=== PATIENT | female | born 1940 | race Caucasian/White ===

== ENCOUNTER → 2016-10-25 | Outpatient (REF) | payer MEDICARE, MEDICAID ==
[~2016-10-25] MED LIST: /LORA10TA PO; /MOXI40TA PO; /WARF25TA PO; /WARF5TA PO; ACET50TA PO; ALBU17IN INH; ASPI81TA7 PO; BACITAB PO; BENA20TA2 PO; BISO5TAB5 PO; CITA20TA2 PO; DEPA250T2 PO; DOXY-197 PO; HYDR12.56 PO; LOTR52CA PO; OMEP20CA3 PO; SIMV20TA2 PO; SING5CHW PO; VITA200016 PO
[2016-10-25 15:35] LABS: BASO # 0.1 K/mm3 (0.0-0.2); BASO % 0.8 % (0.0-1.0); EOS % 0.5 % (0.0-3.0); LARGE UNSTAINED CELL # 0.2 K/mm3 (0.0-0.4); LARGE UNSTAINED CELL % 2.8 % (0.0-4.0); LYMPH # 1.4 K/mm3 (1.5-4.5); MEAN CORPUSCULAR HEMOGLOBIN 30.9 pg (27.0-33.0); MEAN CORPUSCULAR HGB CONC 33.8 g/dl (32.0-36.5); MEAN CORPUSCULAR VOLUME 91.5 fl (80.0-96.0); MONO # 0.8 K/mm3 (0.0-0.8); MONO % 9.6 % (0.0-5.0); NEUTROPHILS # 6.1 K/mm3 (1.8-7.7); NEUTROPHILS % 72.4 % (36.0-66.0); PLATELET COUNT, AUTOMATED 212 k/mm3 (150-450); RED CELL DISTRIBUTION WIDTH 13.4 % (11.5-14.5); WHITE BLOOD COUNT 8.4 K/mm3 (4.0-10.0)
[2016-10-25 16:22] LABS: ALBUMIN 3.8 GM/DL (3.2-5.2); ALKALINE PHOSPHATASE 75 U/L (45-117); ALT/SGPT 17 U/L (12-78); ANION GAP 11 MEQ/L (8-16); AST/SGOT 18 U/L (15-37); BILIRUBIN,TOTAL 0.5 MG/DL (0.2-1.0); BLOOD UREA NITROGEN 11 MG/DL (7-18); CALCIUM LEVEL 8.8 MG/DL (8.8-10.2); CARBON DIOXIDE LEVEL 29 MEQ/L (21-32); CHLORIDE LEVEL 101 MEQ/L (98-107); CREATININE FOR GFR 0.75 MG/DL (0.55-1.02); GLOMERULAR FILTRATION RATE > 60.0 (>39); GLUCOSE, FASTING 97 MG/DL (83-110); POTASSIUM SERUM 4.2 MEQ/L (3.5-5.1); SODIUM LEVEL 141 MEQ/L (136-145); TOTAL PROTEIN 7.6 GM/DL (6.4-8.2)
== END ==
LOC: M SFHCPLAZ 14:40
PROVIDERS: ATTEND Nurse Practitioner Family
DX: J06.9 Acute upper respiratory infection, unspecified (principal); R53.83 Other fatigue; R19.7 Diarrhea, unspecified
CPT/HCPCS: 36415; 80053; 85025; 87804; G0463

== ENCOUNTER → 2017-05-18 | Outpatient (REF) | payer MEDICARE, MEDICAID ==
[2017-05-18 13:26] LABS: MEAN CORPUSCULAR HEMOGLOBIN 30.8 pg (27.0-33.0); MEAN CORPUSCULAR HGB CONC 33.5 g/dl (32.0-36.5); RED CELL DISTRIBUTION WIDTH 13.4 % (11.5-14.5); WHITE BLOOD COUNT 7.7 K/mm3 (4.0-10.0)
[2017-05-18 13:58] LABS: ALBUMIN 3.7 GM/DL (3.2-5.2); ALBUMIN/GLOBULIN RATIO 1.06 (1.00-1.93); ALKALINE PHOSPHATASE 74 U/L (45-117); ALT/SGPT 21 U/L (12-78); ANION GAP 8 MEQ/L (8-16); AST/SGOT 14 U/L (15-37); BILIRUBIN,TOTAL 0.5 MG/DL (0.2-1.0); BLOOD UREA NITROGEN 17 MG/DL (7-18); CALCIUM LEVEL 9.1 MG/DL (8.8-10.2); CARBON DIOXIDE LEVEL 30 MEQ/L (21-32); CHLORIDE LEVEL 101 MEQ/L (98-107); CHOLESTEROL LEVEL 183 MG/DL (<200); CREATININE FOR GFR 0.82 MG/DL (0.55-1.02); GLOMERULAR FILTRATION RATE > 60.0 (>39); GLUCOSE, FASTING 98 MG/DL (83-110); POTASSIUM SERUM 3.9 MEQ/L (3.5-5.1); SODIUM LEVEL 139 MEQ/L (136-145); TOTAL PROTEIN 7.2 GM/DL (6.4-8.2); TRIGLYCERIDES LEVEL 286 MG/DL (<150)
== END ==
LOC: M SFHCPLAZ 08:38
PROVIDERS: ATTEND Internal Medicine
DX: Z51.81 Encounter for therapeutic drug level monitoring (principal); Z79.899 Other long term (current) drug therapy; R73.01 Impaired fasting glucose; E78.00 Pure hypercholesterolemia, unspecified; E55.9 Vitamin D deficiency, unspecified

== ENCOUNTER → 2017-07-13 | Outpatient (CLI) | payer MEDICARE, MEDICAID ==
--- NOTE | 2017-07-13 14:05 | REP ---
Clinical: Stenosis. Comparison: 02/04/2010. Technique: Song scale and color Doppler evaluation using linear high frequency transducer Findings: Two-dimensional song scale and color images demonstrate minimal noncalcified intimal thickening and atheromatous plaque with normal arterial lumen, laminar flow and no appreciable narrowing. Color Doppler interrogation demonstrates normal arterial wave patterns and velocities with no significant spectral broadening. Normal flow direction is appreciated in the bilateral vertebral arteries. RIGHT (cm/s) LEFT (cm/s) ICA peak systolic velocity 57.5 44.0 ICA diastolic velocity 16.9 14.5 ECA peak systolic velocity 109.1 73.9 CCA peak systolic velocity 72.3 98.9 ICA/CCA ratio 1.74 1.00 Impression: No hemodynamically significant areas of narrowing or stenosis appreciated. Based on set standards narrowing falls within the less than 50% range. Signed by Moisés Jimenez MD 07/13/2017 01:56 P
== END ==
LOC: M RAD 13:12
PROVIDERS: ATTEND Physician Assistant Medical
DX: I65.23 Occlusion and stenosis of bilateral carotid arteries (principal)

== ENCOUNTER → 2017-11-16 | Outpatient (REF) | payer MEDICARE, MEDICAID ==
[2017-11-16 11:55] LABS: INR 2.21; PROTHROMBIN TIME 25.3 SECONDS (12.4-14.5)
[2017-11-16 12:10] LABS: ALBUMIN 3.5 GM/DL (3.2-5.2); ALKALINE PHOSPHATASE 81 U/L (45-117); ALT/SGPT 17 U/L (12-78); ANION GAP 9 MEQ/L (8-16); AST/SGOT 10 U/L (7-37); BILIRUBIN,TOTAL 0.4 MG/DL (0.2-1.0); BLOOD UREA NITROGEN 14 MG/DL (7-18); CALCIUM LEVEL 8.6 MG/DL (8.8-10.2); CARBON DIOXIDE LEVEL 28 MEQ/L (21-32); CHLORIDE LEVEL 104 MEQ/L (98-107); CHOLESTEROL LEVEL 181 MG/DL (<200); CHOLESTEROL RISK RATIO 4.525 (<5); CREATININE FOR GFR 0.75 MG/DL (0.55-1.30); GLOMERULAR FILTRATION RATE > 60.0 (>39); GLUCOSE, FASTING 96 MG/DL (70-100); HDL CHOLESTEROL 40 MG/DL (>40); LDL CHOLESTEROL 83.6 MG/DL (<100); NON-HDL-C 141 MG/DL; POTASSIUM SERUM 4.1 MEQ/L (3.5-5.1); SODIUM LEVEL 141 MEQ/L (136-145); TRIGLYCERIDES LEVEL 287 MG/DL (<150)
== END ==
LOC: M SFHCPLAZ 09:34
DX: Z51.81 Encounter for therapeutic drug level monitoring (principal); Z79.899 Other long term (current) drug therapy; I10 Essential (primary) hypertension; E78.00 Pure hypercholesterolemia, unspecified; I48.91 Unspecified atrial fibrillation
CPT/HCPCS: 83735

== ENCOUNTER → 2018-05-24 | Outpatient (REF) | payer MEDICARE, MEDICAID ==
[2018-05-24 12:14] LABS: HEMATOCRIT 43.2 % (36.0-47.0); MEAN CORPUSCULAR HEMOGLOBIN 30.3 pg (27.0-33.0); MEAN CORPUSCULAR HGB CONC 32.4 g/dl (32.0-36.5); MEAN CORPUSCULAR VOLUME 93.5 fl (80.0-96.0); PLATELET COUNT, AUTOMATED 252 10^3/uL (150-450); RED BLOOD COUNT 4.62 10^6/uL (4.00-5.40); RED CELL DISTRIBUTION WIDTH 13.9 % (11.5-14.5); WHITE BLOOD COUNT 9.7 10^3/uL (4.0-10.0)
[2018-05-24 15:16] LABS: ESTIMATED AVERAGE GLUCOSE 131 MG/DL (60-110); HEMOGLOBIN A1c 6.2 %
[2018-05-24 17:42] LABS: ANION GAP 12 MEQ/L (8-16); AST/SGOT 14 U/L (7-37); BLOOD UREA NITROGEN 18 MG/DL (7-18); CARBON DIOXIDE LEVEL 28 MEQ/L (21-32); CHLORIDE LEVEL 101 MEQ/L (98-107); CREATININE FOR GFR 0.84 MG/DL (0.55-1.30); GLOMERULAR FILTRATION RATE > 60.0 (>39); GLUCOSE, FASTING 141 MG/DL (70-100); POTASSIUM SERUM 4.1 MEQ/L (3.5-5.1); SODIUM LEVEL 141 MEQ/L (136-145)
[2018-05-24 17:43] LABS: ALBUMIN 3.7 GM/DL (3.2-5.2); ALBUMIN/GLOBULIN RATIO 1.03 (1.00-1.93); ALKALINE PHOSPHATASE 67 U/L (45-117); ALT/SGPT 21 U/L (12-78); BILIRUBIN,TOTAL 0.5 MG/DL (0.2-1.0); CHOLESTEROL LEVEL 186 MG/DL (<200); CHOLESTEROL RISK RATIO 4.043 (<5); HDL CHOLESTEROL 46 MG/DL (>40); LDL CHOLESTEROL 87 MG/DL (<100); MAGNESIUM LEVEL 1.9 MG/DL (1.8-2.4); NON-HDL-C 140 MG/DL; TOTAL PROTEIN 7.3 GM/DL (6.4-8.2); TRIGLYCERIDES LEVEL 266 MG/DL (<150)
== END ==
LOC: M SFHCPLAZ 10:18
DX: J45.909 Unspecified asthma, uncomplicated (principal); I10 Essential (primary) hypertension; R73.01 Impaired fasting glucose; E78.00 Pure hypercholesterolemia, unspecified
CPT/HCPCS: 83735

== ENCOUNTER 2018-09-17 | Emergency (ER) | payer MEDICARE, MEDICAID ==
[~2018-09-17] VITALS: Ht 157.5 cm; Wt 89.5 kg
[2018-09-17 00:39] LABS: BASO # 0.1 10^3/uL (0.0-0.2); BASO % 0.5 % (0.0-1.0); EOS # 0.3 10^3/uL (0.0-0.50); EOS % 1.9 % (0.0-3.0); HEMATOCRIT 40.7 % (36.0-47.0); HEMOGLOBIN 13.4 g/dl (12.0-15.5); LYMPH % 23.2 % (24.0-44.0); MEAN CORPUSCULAR HEMOGLOBIN 30.3 pg (27.0-33.0); MEAN CORPUSCULAR HGB CONC 32.9 g/dl (32.0-36.5); MEAN CORPUSCULAR VOLUME 92.1 fl (80.0-96.0); MONO # 1.3 10^3/uL (0.0-0.8); NEUTROPHILS # 8.2 10^3/uL (1.8-7.7); NEUTROPHILS % 63.8 % (36.0-66.0); PLATELET COUNT, AUTOMATED 240 10^3/uL (150-450); RED BLOOD COUNT 4.42 10^6/uL (4.00-5.40); WHITE BLOOD COUNT 12.9 10^3/uL (4.0-10.0)
[2018-09-17 00:56] LABS: INR 2.02; PROTHROMBIN TIME 23.3 SECONDS (12.1-14.4)
[2018-09-17 00:57] LABS: PARTIAL THROMBOPLASTIN TIME 36.7 SECONDS (25.4-37.6)
[2018-09-17 01:07] LABS: CALCIUM LEVEL 8.9 MG/DL (8.8-10.2); CREATININE FOR GFR 0.97 MG/DL (0.55-1.30); GLOMERULAR FILTRATION RATE 59.1 (>39); POTASSIUM SERUM 4.3 MEQ/L (3.5-5.1)
[2018-09-17] MEDS ORDERED: NS 500 ML IV ONE (01:15)
--- NOTE | 2018-09-17 01:17 | REPVR ---
EXAM: CT Head Without Contrast EXAM DATE/TIME: 09/17/18 (12:51am) CLINICAL HISTORY: 78 years old female. Syncope and collapse. TECHNIQUE: Axial computed tomography images of the head without contrast. All CT scans at this facility use at least one of these dose optimization techniques: automated exposure control; mA and/or kV adjustment per patient size (includes targeted exams where dose is matched to clinical indication); or iterative reconstruction. COMPARISON: MRA BRAIN of 12/27/13 FINDINGS: Brain: No acute hemorrhage. No cerebral edema. Some atrophic changes. Ventricles: Normal. No ventriculomegaly. Bones/joints: Normal. No acute fracture. Sinuses: Normal as visualized. No acute sinusitis. Mastoid air cells: Normal as visualized. No mastoid effusion. Soft tissues: Normal. IMPRESSION: No acute intracranial pathology is appreciated. Electronically signed by: Rachael Wilson On 09/17/2018 01:17:16 AM
[2018-09-17] MEDS ORDERED: ACETAMINOPH W/CODEINE #3 TAB UD PO ONE (01:30)
[2018-09-17 02:00] VITALS: BP 162/72
[2018-09-17] MEDS ORDERED: ACETAMINOPHEN 325 MG TAB PO ONE (02:15)
--- NOTE | 2018-09-17 09:27 | ECGEPIP ---
Stationary ECG Study [facility] - ED Test Date: 2018-09-17 Pat Name: SOLA GOODMAN Department: Room: - Gender: F Computer Operations Analyst: FELIPA : 1940 Requested By: RICKY MARVIN Order Number: [id number] Reading MD: Harpreet Thomas Measurements Intervals [place] Rate: 84 P: [place]: 0 QRS: 34 QRSD: 89 T: 81 QT: 384 QTc: 455 Interpretive Statements ATRIAL FIBRILLATION NONSPECIFIC ST & T-WAVE ABNORMALITY LOW QRS VOLTAGE LIMB LEADS ABNORMAL RHYTHM ECG PROLONGED QTC CW 07/21/[address] T WAVE CHANGES Electronically Signed On 09-17-2018 9:27:36 EST by Harpreet Thomas
--- NOTE | 2018-09-17 10:35 | REP ---
RIGHT SHOULDER ONE VIEW: 09/17/2018. Comparison: 03/13/2014. Clinical history: Trauma. Findings: Single view provided. There is no gross evidence of fracture or dislocation. No humeral subluxation suggested on this single view. AC joint arthritis with narrowing of the joint space and inferior spurring from the clavicle more than acromion. No clavicular, scapular, humeral rib fracture evident. Some mild osteoarthritic change of the glenohumeral joint as well. Impression: 1. No visible fracture or dislocation of the shoulder. 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 Limited single view exam. Electronically Signed by Jose Enrique Lorenzo MD 09/17/2018 02:23 P
--- NOTE | 2018-09-17 10:41 | REP ---
AP LATERAL RIGHT KNEE: 09/17/2018: Clinical history: Trauma. Findings: No prior study. Two-view show spurs in the tibial spines, medial lateral joint line and patella representing mild tricompartment osteoarthritis. There is no suprapatellar effusion on the lateral view. No visible fracture, loose body or osteochondral defect. No joint space narrowing. There is prepatellar soft tissue swelling at above and below the patella on the lateral view. No abnormal soft-tissue calcification, avulsion or foreign body. Electronically Signed by Jose Enrique Lorenzo MD 09/17/2018 02:23 P
--- NOTE | 2018-09-17 10:43 | REP ---
LEFT FOOT COMPLETE: 09/17/2018: Clinical history: Trauma. Findings: No prior study. Four views are provided. They show plantar and Achilles insertional spurs of moderate size. Subtalar joints are intact. Talus and calcaneus show no fractures or focal lesion and their articulations with the tarsal bones are unremarkable. The tarsal bones show no fracture or focal lesion. TMT joints were intact. No fracture or focal lesion in the metatarsals. Phalanges as visualized are without fracture. There is narrowing and/or spur formation at all IP joints. First MTP joint with some osteoarthritic change. There is arterial calcification noted in the midfoot. Soft tissue swelling over the hind foot and anterolateral to the ankle. Impression: 1. Some degenerative changes of the foot at multiple joints. Heel spurs also noted. No visible or displaced fracture. Electronically Signed by Jose Enrique Lorenzo MD 09/17/2018 02:23 P
== END 2018-09-17 02:20 | disposition home or self-care (01) ==
LOC: M ED
DX: E86.0 Dehydration (principal); T14.8XXA Other injury of unspecified body region, initial encounter; W18.39XA Other fall on same level, initial encounter; Y92.010 Kitchen of single-family (private) house as the place of occurrence of the external cause; I10 Essential (primary) hypertension; J45.909 Unspecified asthma, uncomplicated; I48.91 Unspecified atrial fibrillation; K21.9 Gastro-esophageal reflux disease without esophagitis; F41.9 Anxiety disorder, unspecified; E78.5 Hyperlipidemia, unspecified; Z79.899 Other long term (current) drug therapy; Z79.82 Long term (current) use of aspirin; Z79.01 Long term (current) use of anticoagulants; Z88.0 Allergy status to penicillin; Z88.1 Allergy status to other antibiotic agents

== ENCOUNTER 2018-11-20 11:15 | Inpatient (IN) | payer MEDICARE, MEDICAID ==
[~2018-11-20] VITALS: Ht 157.5 cm; Wt 89.7 kg
[2018-11-20] MEDS ORDERED: METOCLOPRAMIDE INJ 10MG/2ML VIAL (J2765) IV ONE (12:45)
[2018-11-20] MEDS ORDERED: NS 1,000 ML IV ONE (12:45)
[2018-11-20 12:57] LABS: BASO % 0.4 % (0.0-1.0); EOS # 0.2 10^3/uL (0.0-0.50); EOS % 2.7 % (0.0-3.0); HEMOGLOBIN 13.3 g/dl (12.0-15.5); LYMPH # 1.5 10^3/uL (1.5-4.5); LYMPH % 19.7 % (24.0-44.0); MEAN CORPUSCULAR HEMOGLOBIN 29.8 pg (27.0-33.0); MEAN CORPUSCULAR HGB CONC 32.4 g/dl (32.0-36.5); MEAN CORPUSCULAR VOLUME 91.7 fl (80.0-96.0); MONO # 0.8 10^3/uL (0.0-0.8); MONO % 11.1 % (0.0-5.0); NEUTROPHILS # 4.9 10^3/uL (1.8-7.7); NEUTROPHILS % 65.6 % (36.0-66.0); PLATELET COUNT, AUTOMATED 254 10^3/uL (150-450); RED BLOOD COUNT 4.47 10^6/uL (4.00-5.40); WHITE BLOOD COUNT 7.5 10^3/uL (4.0-10.0)
[2018-11-20 13:06] LABS: INR 2.56
[2018-11-20 13:27] LABS: BLOOD UREA NITROGEN 12 MG/DL (7-18); CALCIUM LEVEL 8.3 MG/DL (8.8-10.2); CARBON DIOXIDE LEVEL 25 MEQ/L (21-32); CHLORIDE LEVEL 103 MEQ/L (98-107); CK-MB VALUE MASS < 1.0 NG/ML (<3.6); CPK CREATINE PHOSPHOKINASE 89 U/L (26-192); CREATININE FOR GFR 0.92 MG/DL (0.55-1.30); GLOMERULAR FILTRATION RATE > 60.0 (>39); GLUCOSE, FASTING 152 MG/DL (70-100); MAGNESIUM LEVEL 1.8 MG/DL (1.8-2.4); MB/CK RELATIVE INDEX 1.12 (< OR =4); POTASSIUM SERUM 3.8 MEQ/L (3.5-5.1); SODIUM LEVEL 138 MEQ/L (136-145); TROPONIN I < 0.02 NG/ML (< 0.10)
--- NOTE | 2018-11-20 13:41 | REP ---
CT Head without contrast HISTORY: Syncope COMPARISON: 09/17/2018 There is no intraparenchymal hemorrhage, acute infarct, mass or midline shift. The ventricular system and cortical sulci as well as subarachnoid space in the posterior fossa are dilated consistent with minimal volume loss. There is no extra cerebral collection. There is no fracture. The visualized sinuses are clear. IMPRESSION: Minimal volume loss. Electronically Signed by Estiven Rajan MD 11/20/2018 01:32 P
--- NOTE | 2018-11-20 14:03 | REP ---
PORTABLE CHEST X-RAY: Single view. HISTORY: Syncope/near syncope. COMPARISON CHEST X-RAY: July 21, 2013. FINDINGS: There is moderate cardiomegaly again noted. EKG electrodes are seen. Pulmonary vasculature is not increased. No infiltrate is seen. The aortic knob is somewhat calcific as before. IMPRESSION: Moderate cardiac enlargement. Otherwise no acute disease. Electronically Signed by Jefe Ocampo MD 11/20/2018 02:29 P
[2018-11-20] MEDS ORDERED: OMEP20CA3 PO (15:04)
[2018-11-20] MEDS ORDERED: WARF-23 PO (15:04)
[2018-11-20] MEDS ORDERED: ACET1TAB55 PO (15:04)
[2018-11-20] MEDS ORDERED: DIVA250T7 PO (15:04)
[2018-11-20] MEDS ORDERED: CITA-230 PO (15:04)
[2018-11-20] MEDS ORDERED: PRED20TA PO (15:04)
[2018-11-20] MEDS ORDERED: ALB2.5NEB NEB (15:04)
[2018-11-20] MEDS ORDERED: BENA20TA6 PO (15:04)
[2018-11-20] MEDS ORDERED: AMLO5CAP2 PO (15:04)
[2018-11-20] MEDS ORDERED: BISO5TAB5 PO (15:04)
[2018-11-20] MEDS ORDERED: MONT10TA2 PO (15:04)
[2018-11-20] MEDS ORDERED: ASPI1TAB PO (15:04)
[2018-11-20] MEDS ORDERED: VENTAER INH (15:04)
[2018-11-20] MEDS ORDERED: SIMV40TA2 PO (15:04)
[2018-11-20] MEDS ORDERED: LORA-243 PO (15:04)
[2018-11-20] MEDS ORDERED: FLUT22IN INH (15:04)
[2018-11-20] MEDS ORDERED: ONDANSETRON 4 MG TAB (S0181) PO PRN (15:30)
[2018-11-20] MEDS ORDERED: BENAZEPRIL 20 MG TAB PO ONE (15:45)
[2018-11-20] MEDS ORDERED: amLODIPine 5 MG TAB PO ONE (15:45)
[2018-11-20] MEDS ORDERED: hydroCHLOROthiazide 12.5 MG CAPSULE PO ONE (15:45)
[2018-11-20] MEDS ORDERED: WARFARIN SOD 5 MG TAB PO SCH (17:00)
--- NOTE | 2018-11-20 19:02 | HPEPDOC ---
[facility] Medical History & Physical Date of Admission Nov 20, 2018 Primary Care Physician: Nahun Ken Attending Physician: VEENA MARIN MD History and Physical CHIEF COMPLAINT: Syncopal episode HISTORY OF PRESENT ILLNESS: Swathi Johnson is a 78 year old white female, history significant for rate-controlled a-fib on Coumadin, hypercholesterolemia, HTN, and migraine who presents to the emergency department for a brief syncopal episode that occurred this morning while the patient was seated in a chair. She was having breakfast with her daughter when she suddenly noticed she was not feeling well. She recalls slumping in her chair momentarily. She denies aura or post-episode confusion. Per patient, she had been ill this past weekend with numerous bouts of diarrhea and abdominal cramping. Patient reported improvement in her symptoms yesterday. Last evening, she reports having a headache, which continued this morning and improved upon presentation to the ED. In the ED, patient was given a liter of NS and metoclopramide for nausea. Head CT and CXR was negative. CBC negative, CMP negative. Troponin negative, TSH negative. A similar episode occurred in 09/16. Patient reported to the ED with a chief complaint of syncope and fall. She received a full work-up including EKG and Head CT and was subsequently discharged without issue. Hospitalist team was called to admit the patient for further observation and workup. PAST MEDICAL HISTORY: 1. Atrial fibrillation 2. Asthma 3. Anxiety 4 hypercholesterolemia 5. Osteopenia 6. Migraine 7. Hypertension 8. Esophageal reflux 9. Vitamin D deficiency PAST SURGICAL HISTORY: 1. Total abdominal hysterectomy with oophorectomy, 1983 2. Benign tumor removal from right neck, 1984 3. Right carpal tunnel release, 1989 4. Skin lesion removed from right fourth finger, 1991 SOCIAL HISTORY: Marital status: in 2007 Resides in: Alone in senior community Employment: retired, Tobacco use:Life-long, non-smoker ETOH: Reports occasional ETOH use, once monthly Illicit drug use: Denies Other relevant social factors: Uses corrective lenses FAMILY HISTORY: Father: , myocardial infarction Mother: , renal failure 2/2 unknown Siblings: HTN, PE, PVD, Lung CA, Diabetes, ETOH abuse ALLERGIES: Please see below. REVIEW OF SYSTEMS: CONSTITUTIONAL: Denies fevers, chills, night sweats, changes in weight HEENT: Reports headache last evening and this morning, top of head, aching, resolving since in hospital, denies tongue bites CARDIOVASCULAR: Denies chest pain/tightness or palpitations, no diaphoresis RESPIRATORY: Reports history of asthma exacerbation 2 weeks ago, s/p 5 days prednisone, Denies cough, or wheezing GASTROINTESTINAL: Reports 1 week history of loose watery stools with associated abdominal cramping and some nausea that improved, no constipation GENITOURINARY: Denies urinary frequency, hesitancy, urgency, dysuria SKIN: Denies new or evolving lesions MUSCULOSKELETAL: Denies muscle weakness, joint pain NEUROLOGICAL: Reports long-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 PHYSICAL EXAMINATION: VITAL SIGNS: Temperature 97.7, pulse 89, respiratory rate 20, blood pressure 155/72 (99), pulse oximetry 95% on room air. GENERAL APPEARANCE: Alert and oriented x3, NAD, able to participate in her care. HEENT: Normocephalic, atraumatic, no sinus tenderness, no JVD, trachea midline CARDIOVASCULAR: irregularly, irregular, no murmurs noted LUNGS: Clear to auscultation bilaterally, no wheezes, rales and rhonchi ABDOMEN: obese, soft, nontender, bowel sounds throughout MUSCULOSKELETAL: No muscle weakness EXTREMITIES: No lower extremity swelling, no calf tenderness NEUROLOGICAL: Alert and oriented, no confusion LABORATORY DATA: See below. IMAGING: Head CT (11/14): Minimal volume loss. Chest XR (11/14): Moderate cardiac enlargement. Otherwise no acute disease MICROBIOLOGY: Please see below. ASSESSMENT: Swathi is a 78 year old female who presents to the emergency department following a single, episode of syncope in which the patient is unsure if she lost consciousness. No aura or post-ictal state. PLAN: Syncopal Episode - History of diarrhea suggestive of volume depletion, not supported by stable vitals and normal orthostatics. - Cardiogenic causes considered; EKG demonstrating atrial fibrillation - rate controlled. Troponin negative, Echo ordered to r/o ischemic/valvular disease, observation with telemetry overnight - Infectious causes considered; CXR did not demonstrate acute process, no leukocytosis, urine negative, afebrile, vitals stable - Vasovagal causes considered; HPI has patient seated quietly in a chair eating breakfast, uncharacteristic of vasovagal events. - Metabolic causes considered; no electrolyte abnormality on CMP, TSH normal, renal function normal, patient is not diabetic, blood sugar WNL. - TIA considered; no weakness or focal neurologic deficits, no slurring of speech. - Medication causes considered; No new medications or medication changes. - Plan to observe overnight on tele Hypercholesterolemia - c/w home Simvastatin Atrial Fibrillation - Amlodipine for rate control - Coumadin 5 mg daily for anticoagulation, INR therapeutic at 2.56 Hypertension - Benazepril 40 mg and HCTZ 12.5 mg daily Esophageal Reflux - c/w home omeprazole Migraine - c/w home Divalproex ER Depression/Anxiety - c/w home Celexa 20 mg DVT Prophylaxis: - Chronically anticoagulated with Coumadin - Sequentials Vital Signs Vital Signs Date Time Temp Pulse Resp B/P (MAP) Pulse Ox O2 Delivery O2 Flow Rate FiO2 11/20/18 17:30 83 20 143/76 (98) 93 11/20/18 11:31 97.7 Laboratory Data Labs 24H Laboratory Tests 2 11/20/18 11:38: Immature Granulocyte % (Auto) 0.5, White Blood Count 7.5, Red Blood Count 4.47, Hemoglobin 13.3, Hematocrit 41.0, Mean Corpuscular Volume 91.7, Mean Corpuscular Hemoglobin 29.8, Mean Corpuscular Hemoglobin Concent 32.4, Red Cell Distribution Width 13.5, Platelet Count 254, Neutrophils (%) (Auto) 65.6, Lymphocytes (%) (Auto) 19.7L, Monocytes (%) (Auto) 11.1H, Eosinophils (%) (Auto) 2.7, Basophils (%) (Auto) 0.4, Neutrophils # (Auto) 4.9, Lymphocytes # (Auto) 1.5, Monocytes # (Auto) 0.8, Eosinophils # (Auto) 0.2, Basophils # (Auto) 0.0, Nucleated Red Blood Cells % (auto) 0.0, Prothrombin Time 28.0H, Prothromb Time International Ratio 2.56, Anion Gap 10, Glomerular Filtration Rate > 60.0, Blood Urea Nitrogen 12, Creatinine 0.92, Sodium Level 138, Potassium Level 3.8, Chloride Level 103, Carbon Dioxide Level 25, Calcium Level 8.3L, Total Creatine Kinase 89, Magnesium Level 1.8, Creatine Kinase MB < 1.0, Creatine Kinase MB Relative Index 1.12, Troponin I < 0.02, Thyroid Stimulating Hormone (TSH) 1.680 11/20/18 16:43: Urine Color YELLOW, Urine Appearance HAZY, Urine pH 5.0, Urine Specific [place] 1.013, Urine Protein NEGATIVE, Urine Glucose (UA) NEGATIVE, Urine Ketones NEGATIVE, Urine Blood NEGATIVE, Urine Nitrite NEGATIVE, Urine Bilirubin NEGATIVE, Urine Urobilinogen 0.2, Urine Leukocyte Esterase NEGATIVE, Urine WBC (Auto) 2, Urine RBC (Auto) 1, Urine Hyaline Casts (Auto) 0, Urine Bacteria (Auto) NEGATIVE, Urine Squamous Epithelial Cells 3, Urine Mucus (Auto) SMALL, Urine Sperm (Auto) CBC/BMP Laboratory Tests 11/20/18 11:38 Red Blood Count 4.47, Mean Corpuscular Volume 91.7, Mean Corpuscular Hemoglobin 29.8, Mean Corpuscular Hemoglobin Concent 32.4, Red Cell Distribution Width 13.5, Neutrophils (%) (Auto) 65.6, Lymphocytes (%) (Auto) 19.7 L, Monocytes (%) (Auto) 11.1 H, Eosinophils (%) (Auto) 2.7, Basophils (%) (Auto) 0.4, Neutrophils # (Auto) 4.9, Lymphocytes # (Auto) 1.5, Monocytes # (Auto) 0.8, Eosinophils # (Auto) 0.2, Basophils # (Auto) 0.0, Calcium Level 8.3 L, Total Creatine Kinase 89 Home Medications Scheduled (Benazepril HCl/Hydrochlor 20-12.5 mg) 1 Tab Tab, 1 TAB PO DAILY (Amlodipine Besylate/Benaz 5-20 mg) 1 Cap Cap, 1 CAP PO QHS Aspirin (Aspirin 81) 81 Mg Tab, 81 MG PO DAILY Bisoprolol Fumarate (Bisoprolol Fumarate) 5 Mg Tab, 7.5 MG PO QHS Citalopram Hydrobromide (Citalopram) 20 Mg Tab, 20 MG PO QHS Divalproex Sodium (Divalproex Sodium ER) 250 Mg Tab, 250 MG PO QHS Fluticasone Propionate (Flovent Hfa) 220 Mcg/Act Aer, 1 PUFF INH BID Loratadine (Loratadine) 10 Mg Tab, 10 MG PO DAILY Montelukast Sodium (Montelukast Sodium) 10 Mg Tab, 10 MG PO DAILY Omeprazole (Omeprazole) 20 Mg Cap, 20 MG PO DAILY Simvastatin - High Dose (Simvastatin) 40 Mg Tab, 40 MG PO QHS Warfarin Sod (Warfarin Sodium) 5 Mg Tab, 5 MG PO QPM Scheduled PRN Acetaminophen (Acetaminophen) 325 Mg Tab, 650 MG PO Q4H PRN for PAIN Albuterol Sulfate (Albuterol Sulfate) 2.5 Mg/0.5 Ml Neb, 1 VIAL NEB Q6H PRN for SHORTNESS OF BREATH Albuterol Sulfate (Ventolin Hfa) 108 Mcg/Act Aer, 2 PUFF INH Q6H PRN for SHORTNESS OF BREATH Prednisone (Prednisone) 20 Mg Tab, 20 MG PO DAILY PRN for ASTHMA Allergies Coded Allergies: Amoxicillin (Verified Adverse Reaction, Mild, severe diarrhea, 11/20/18) Azithromycin (Verified Adverse Reaction, Mild, N/V, 11/20/18) Clindamycin (Verified Adverse Reaction, Mild, N/V, 11/20/18) GME ATTESTATION GME ATTESTATION My faculty preceptor for this patient encounter was physically present during the encounter and was fully available. All aspects of the patient interview, examination, medical decision making process, and medical care plan development were reviewed and approved by the faculty preceptor. The faculty preceptor is aware and concurs with the plan as stated in the body of this note and will attest to such by his/her cosignature. SONA SHAHID DO Nov 20, 2018 19:02
[2018-11-20 19:13] VITALS: BP 164/76
[2018-11-20] MEDS: DIVALPROEX 250MG *ER* TAB PO SCH (20:31)
[2018-11-20] MEDS: SIMVASTATIN 40 MG TAB PO SCH (20:31)
[2018-11-20] MEDS ORDERED: BISOPROLOL FUMARATE 5 MG TAB PO SCH (21:00)
--- NOTE | 2018-11-20 21:16 | ECGEPIP ---
Stationary ECG Study [facility] - ED Test Date: 2018-11-20 Pat Name: SOLA GOODMAN Department: Room: - Gender: F Round Boner: ROSENDO : 1940 Requested By: AIME AHN Order Number: [id number] Reading MD: Rita Grayson Measurements Intervals [place] Rate: 76 P: [place]: 0 QRS: 40 QRSD: 91 T: 93 QT: 402 QTc: 454 Interpretive Statements ATRIAL FIBRILLATION MINIMAL ST DEPRESSION ABNORMAL RHYTHM ECG LOW VOLTAGE LIMB SIMILAR 09/17/18 Electronically Signed On 11-20-2018 21:16:08 EDT by Rita Grayson
[2018-11-20 22:00] VITALS: BP 127/75
[2018-11-21] MEDS: FLUTICASONE HFA 220 MCG 12 GM INHALER (FLOVENT) INH SCH ×3 (00:35→21:00)
[2018-11-21 06:00] VITALS: BP 130/79
[2018-11-21 06:46] LABS: INR 2.72; PROTHROMBIN TIME 29.5 SECONDS (12.1-14.4)
[2018-11-21 08:11] LABS: HEMATOCRIT 36.6 % (36.0-47.0); HEMOGLOBIN 11.8 g/dl (12.0-15.5); MEAN CORPUSCULAR HEMOGLOBIN 29.6 pg (27.0-33.0); MEAN CORPUSCULAR HGB CONC 32.2 g/dl (32.0-36.5); MEAN CORPUSCULAR VOLUME 91.7 fl (80.0-96.0); PLATELET COUNT, AUTOMATED 224 10^3/uL (150-450); RED BLOOD COUNT 3.99 10^6/uL (4.00-5.40); WHITE BLOOD COUNT 7.9 10^3/uL (4.0-10.0)
[2018-11-21 08:34] LABS: BLOOD UREA NITROGEN 10 MG/DL (7-18); CALCIUM LEVEL 8.3 MG/DL (8.8-10.2); CARBON DIOXIDE LEVEL 29 MEQ/L (21-32); CHLORIDE LEVEL 105 MEQ/L (98-107); CREATININE FOR GFR 0.76 MG/DL (0.55-1.30); GLOMERULAR FILTRATION RATE > 60.0 (>39); GLUCOSE, FASTING 105 MG/DL (70-100); POTASSIUM SERUM 3.7 MEQ/L (3.5-5.1); SODIUM LEVEL 141 MEQ/L (136-145)
[2018-11-21] MEDS: OMEPRAZOLE 20 MG CAP PO SCH (09:23)
[2018-11-21] MEDS: LORATADINE 10 MG TAB PO SCH (09:23)
[2018-11-21] MEDS: MONTELUKAST 10 MG TAB PO SCH (09:23)
[2018-11-21] MEDS: ASPIRIN 81 MG ENTERIC TAB PO SCH (09:23)
[2018-11-21 09:39] VITALS: BP 135/69
--- NOTE | 2018-11-21 09:58 | IPNPDOC ---
Text Note Date of Service The patient was seen on 11/21/18. NOTE SUBJECTIVE: Patient was interviewed and examined in her hospital bed. She is awake, alert and in good spirits. She denies any syncopal episodes last evening. She is eager to return home. Echocardiogram to be performed today. Last evening, patient was noted to have a 2.9 second pause followed by a 5.4 second pause. Patient remained asymptomatic. Patient has been eating and drinking appropriately. She has yet to have a BM. She is able to ambulate to the bathroom to urinate without difficulty. She denies continued nausea or vomiting. No symptoms of reflux, abdominal pain or cramping. No shortness of breath, cough or difficulty breathing. She is no longer on supplemental oxygen. She denies chest pain/pressure. She denies palpitations. No headache. OBJECTIVE: VITAL SIGNS: Please see below GENERAL APPEARANCE: Alert and oriented x3, NAD, able to participate in her care. HEENT: Normocephalic, atraumatic, no JVD, trachea midline, EOMI, sclera non- icteric CARDIOVASCULAR: irregularly, irregular, no murmurs, gallops or rubs noted LUNGS: Clear to auscultation bilaterally, no wheezes, rales and rhonchi ABDOMEN: obese, soft, nontender, bowel sounds throughout MUSCULOSKELETAL: No muscle weakness, moves all extremities equally and without difficulty EXTREMITIES: No lower extremity swelling, no calf tenderness NEUROLOGICAL: Alert and oriented, no confusion, no aphasia or focal neurological deficits LABORATORY DATA: See below. IMAGING: Head CT (11/14): Minimal volume loss. Chest XR (11/14): Moderate cardiac enlargement. Otherwise no acute disease MICROBIOLOGY: Please see below. ASSESSMENT: Swathi is a 78 year old female who presents to the emergency department following a single, episode of syncope in which the patient is unsure if she lost consciousness. No aura or post-ictal state. PLAN: Syncopal Episode - History of diarrhea suggestive of volume depletion, not supported by stable vitals and normal orthostatics. - Cardiogenic causes considered; EKG demonstrating atrial fibrillation - rate controlled. Troponin negative, Echo ordered to r/o ischemic/valvular disease. Overnight telemetry demonstrated a 2.9 second followed by a 5.4 second pause. Patient's plastic straightening roll operator, Dr. Yanes was consulted. Per his recommendations, patient's Coumadin was held on the presumption that she would be requiring a pacemaker later in the week. He plans to see the patient either this evening or tomorrow morning. She remains on tele for further monitoring. - Infectious causes considered; CXR did not demonstrate acute process, no leukocytosis on repeat labs, urine negative, afebrile, vitals stable - Vasovagal causes considered; HPI has patient seated quietly in a chair eating breakfast, uncharacteristic of vasovagal events. - Metabolic causes considered; no electrolyte abnormality on CMP, TSH normal, renal function normal, patient is not diabetic, blood sugar WNL. - TIA considered; no weakness or focal neurologic deficits, no slurring of speech. - Medication causes considered; No new medications or medication changes. Hypercholesterolemia - c/w home Simvastatin Atrial Fibrillation - Amlodipine for rate control - Coumadin 5 mg daily for anticoagulation, INR therapeutic at 2.56 Hypertension Esophageal Reflux - c/w home omeprazole Migraine - c/w home Divalproex ER Depression/Anxiety DVT Prophylaxis: - Chronically anticoagulated with Coumadin - Sequentials Dispo: PT/OT VS,Fishbone, I+O VS, Fishbone, I+O Laboratory Tests 11/20/18 11:38 Red Blood Count 4.47, Mean Corpuscular Volume 91.7, Mean Corpuscular Hemoglobin 29.8, Mean Corpuscular Hemoglobin Concent 32.4, Red Cell Distribution Width 13.5, Neutrophils (%) (Auto) 65.6, Lymphocytes (%) (Auto) 19.7 L, Monocytes (%) (Auto) 11.1 H, Eosinophils (%) (Auto) 2.7, Basophils (%) (Auto) 0.4, Neutrophils # (Auto) 4.9, Lymphocytes # (Auto) 1.5, Monocytes # (Auto) 0.8, Eosinophils # (Auto) 0.2, Basophils # (Auto) 0.0, Calcium Level 8.3 L, Total Creatine Kinase 89 11/21/18 05:49 Red Blood Count 3.99 L, Mean Corpuscular Volume 91.7, Mean Corpuscular Hemoglobin 29.6, Mean Corpuscular Hemoglobin Concent 32.2, Red Cell Distribution Width 13.5, Calcium Level 8.3 L Vital Signs Date Time Temp Pulse Resp B/P (MAP) Pulse Ox O2 Delivery O2 Flow Rate FiO2 3/26/19 06:00 97.0 68 18 130/79 (96) 96 I&O- Last 24 Hours up to 6 AM 11/21/18 06:00 Intake Total 1320 ml Output Total 400 ml Balance 920 ml GME ATTESTATION GME ATTESTATION My faculty preceptor for this patient encounter was physically present during t he encounter and was fully available. All aspects of the patient interview, examination, medical decision making process, and medical care plan development were reviewed and approved by the faculty preceptor. The faculty preceptor is aware and concurs with the plan as stated in the body of this note and will attest to such by his/her cosignature. SONA SHAHID DO Nov 21, 2018 09:58
[2018-11-21 12:33] VITALS: BP_SYST 127; BP_SYST 133; BP_SYST 139; BP_DIAS 71; BP_DIAS 79; BP_DIAS 90
[2018-11-21 14:00] VITALS: BP 151/85
[2018-11-21] MEDS: SIMVASTATIN 40 MG TAB PO SCH (20:04)
[2018-11-21] MEDS: DIVALPROEX 250MG *ER* TAB PO SCH (20:04)
[2018-11-21] MEDS: BISOPROLOL FUM 2.5 MG PER 1/2TAB PO SCH (20:05)
[2018-11-21] MEDS ORDERED: BISOPROLOL FUMARATE 5 MG TAB PO SCH (21:00)
[2018-11-21 21:52] VITALS: BP_SYST 139; BP_SYST 144; BP_SYST 146; BP_DIAS 78; BP_DIAS 80; BP_DIAS 81
[2018-11-21 22:00] VITALS: BP 133/80
--- NOTE | 2018-11-21 23:22 | ECHO ---
DATE OF PROCEDURE: 11/21/2018 REFERRING PHYSICIAN: Dr. Grimes INDICATION: Syncope. The patient's measures 62 inches, weighs 90 kg. DIMENSIONS: IVS: 1.1 LV: 4.4 LVPW: 1.0 LA: 4.5 Aorta: 2.8 Mitral E wave velocity: 137 E prime septal: 6.9 E prime lateral: 7.6 FINDINGS: The study is of really difficult technical quality with limited visualization. The patient is in atrial fibrillation with controlled rate. Left ventricle is of normal size and I estimate overall preserved left ventricular systolic function based on fair views. Same applies for right ventricle. Both atria are severely enlarged. Aortic valve is sclerotic but appears to have preserved mobility. Same applies for mitral valve with prominent mitral annular calcifications but mobility of leaflets is preserved. Tricuspid valve appears normal. Pulmonic valve also appears normal. There is a prominent echo-free space that measured in its largest diameter up to 1 cm. It is principally pericardial fat, but there appears to be small amount of effusion as well. I do not appreciate any diastolic collapse of any of four cardiac chambers. Inferior vena cava appears to be of normal size. Aortic root appears normal. Aortic arch and abdominal aorta were not seen. Doppler interrogation of aortic valve reveals no significant stenosis and mild insufficiency. There is trace mitral insufficiency and mild tricuspid insufficiency. Calculated pulmonary artery pressure is at least in high 40s, which would correspond to moderate pulmonary hypertension. Mild pulmonic insufficiency is seen as well. Evaluation of diastolic function is inconclusive due to underlying atrial fibrillation. CONCLUSIONS: 1. Study is of limited technical quality. 2. Normal left ventricular (LV) size with grossly preserved left ventricular systolic function. 3. Severe biatrial enlargement. 4. No hemodynamically significant valvular disease. 5. Likely normal central venous pressure and at least moderate pulmonary hypertension. 6. Pericardial fat pad with small amount of pericardial effusion. No evidence for hemodynamic significance. COMMENT: Subacute bacterial endocarditis (SBE) prophylaxis is not recommended.
[2018-11-22 06:00] VITALS: BP 126/80
[2018-11-22 06:36] LABS: HEMATOCRIT 37.5 % (36.0-47.0); HEMOGLOBIN 12.2 g/dl (12.0-15.5); MEAN CORPUSCULAR HEMOGLOBIN 29.2 pg (27.0-33.0); MEAN CORPUSCULAR HGB CONC 32.5 g/dl (32.0-36.5); MEAN CORPUSCULAR VOLUME 89.7 fl (80.0-96.0); PLATELET COUNT, AUTOMATED 222 10^3/uL (150-450); RED BLOOD COUNT 4.18 10^6/uL (4.00-5.40)
[2018-11-22 06:44] LABS: INR 2.61; PROTHROMBIN TIME 28.5 SECONDS (12.1-14.4)
[2018-11-22 06:52] LABS: BLOOD UREA NITROGEN 12 MG/DL (7-18); CALCIUM LEVEL 8.3 MG/DL (8.8-10.2); CARBON DIOXIDE LEVEL 30 MEQ/L (21-32); CHLORIDE LEVEL 106 MEQ/L (98-107); CREATININE FOR GFR 0.75 MG/DL (0.55-1.30); GLOMERULAR FILTRATION RATE > 60.0 (>39); GLUCOSE, FASTING 103 MG/DL (70-100); POTASSIUM SERUM 3.9 MEQ/L (3.5-5.1); SODIUM LEVEL 142 MEQ/L (136-145)
[2018-11-22] MEDS: FLUTICASONE HFA 220 MCG 12 GM INHALER (FLOVENT) INH SCH ×2 (08:15→20:32)
[2018-11-22] MEDS: OMEPRAZOLE 20 MG CAP PO SCH (08:45)
[2018-11-22] MEDS: ASPIRIN 81 MG ENTERIC TAB PO SCH (08:45)
[2018-11-22] MEDS: MONTELUKAST 10 MG TAB PO SCH (08:45)
[2018-11-22] MEDS: LORATADINE 10 MG TAB PO SCH (08:45)
--- NOTE | 2018-11-22 08:45 | CR ---
DATE OF CONSULTATION: 11/22/2018 REFERRING PHYSICIAN: Dr. Morales INDICATION: Atrial fibrillation, syncope, sick sinus syndrome. HISTORY OF PRESENT ILLNESS: Mrs. Johnson is known to me. She is a rather delightful 78-year-old female who has chronic atrial fibrillation for years. She has been well rate-controlled on 7.5 mg of bisoprolol chronically and anticoagulated with Coumadin. She was admitted to [facility] after she suffered a syncopal event. The description is not suggestive of vasovagal syncope. She was sitting and suddenly became lightheaded and briefly lost consciousness. There was no loss of bowel or urine control. She reports that she had one episode of syncope about a month ago and at that point she was standing at her kitchen counter, got really lightheaded and passed out. Again, the loss of consciousness was very brief and there was no significant injury. She also reported that she had prior episodes of near syncopal events, but of the description of her previous events, all suggest orthostatic mechanism. As she was monitored on telemetry, she had yesterday morning pause exceeding 5 seconds. She was awake at that point, but the episode was asymptomatic. PAST MEDICAL HISTORY: 1. Chronic atrial fibrillation. 2. Asthma. 3. Dyslipidemia. 4. Hypertension. 5. Gastroesophageal reflux disease. 6. Migraine history. PAST SURGICAL HISTORY 1. Hysterectomy. 2. Resection of tumor from her neck that was benign decades ago. 3. Carpal tunnel release on right. SOCIAL HISTORY: The patient is a . She lives in a correction community. No alcohol. No smoking. FAMILY HISTORY: Father of myocardial infarction and mother of renal failure. OUTPATIENT MEDICATIONS: - albuterol as needed - amlodipine / benazepril 5/20 once a day - aspirin 81 a day - bisoprolol 5 mg at night - citalopram 20 mg a day - divalproex 250 at night - fluticasone as needed - loratadine 10 mg a day - montelukast 10 mg a day - omeprazole 20 a day - prednisone as needed for asthma exacerbation - simvastatin 40 mg daily REVIEW OF SYSTEMS: On the review of systems, she reports that in the last 4-6 months she has had intermittent diarrhea, which has been her dominant complaint. No nausea. No vomiting. No fever, chills. No chest pains. No bleeding problems. The rest of review of systems are negative. PHYSICAL EXAMINATION: Mrs. Johnson is an elderly woman who is obese, pleasant, appears in no distress. Blood pressure 126/80, heart rate has been mostly in 70s and 80s and telemetry monitoring reveals rate-controlled atrial fibrillation with the exception of this pause yesterday morning. She has been afebrile. Oxygen saturation 96%. Weight has not been documented for the last 2 days, admission weight was 90 kg. She is alert and oriented and appropriate. Her jugular venous pressure is not elevated. Lungs are clear to auscultation. Good air movement. Heart exam reveals irregularly irregular rhythm. I do not appreciate any gallop. There is faint murmur at the apex. No rub. Abdomen is soft, nontender. Extremities are free of edema. Peripheral pulses are of good quality. Neurologically, she is intact. LABORATORY: Basic metabolic is panel is normal but for glucose 103. CBC is completely normal. Her INR today is 2.6, it was 2.7 yesterday and yesterday evening was the first day when she did not get her Coumadin. An echocardiogram was performed yesterday and revealed preserved left ventricular systolic function with severe biatrial enlargement. No significant valvular disease and significant amount of pericardial fat with small amount of pericardial effusion as well. Chest x-ray reveals cardiomegaly, atherosclerosis of the thoracic aorta but no convincing congestive heart failure or infiltrate. ECG reveals rate-controlled atrial fibrillation without ischemic abnormalities. ASSESSMENT/PLAN: Mrs. Johnson is a 78-year-old female who has a longstanding history of atrial fibrillation that has been chronic at this point. She presented with syncopal events that certainly does not look orthostatic or neurocardiogenic by description. A 5-second pause was documented on telemetry at the point when she was asymptomatic. Because she was awake at that point, I think it is very likely that her syncopal event was caused by underlying bradycardia and she at this point qualifies for pacemaker placement. I will contact Dr. Wallace who I believe is wheel and pinion inspector for pacemaker placement. I spoke with the patient and explained the rationale. She is certainly open to proceeding. Because her INR is still in normal range, it probably will be at least another day or two before she will be ready to get the device placed. Her heart rate is for the most part well rate-controlled and she had only single isolated pause. Consequently, I do not believe we need to contemplate any temporary pacemaker or other interventions. I would even continue her chronic bisoprolol.
[2018-11-22] MEDS ORDERED: PHYTONADIONE 10MG/ML INJECTION (J3430) SC ONE (11:45)
[2018-11-22 14:00] VITALS: BP 136/80
[2018-11-22 16:59] VITALS: BP_SYST 136; BP_SYST 148; BP_SYST 150; BP_DIAS 76; BP_DIAS 80; BP_DIAS 85
[2018-11-22] MEDS: SIMVASTATIN 40 MG TAB PO SCH (21:27)
[2018-11-22] MEDS: DIVALPROEX 250MG *ER* TAB PO SCH (21:27)
[2018-11-22 21:30] VITALS: BP_SYST 144; BP_SYST 148; BP_SYST 154; BP_DIAS 68; BP_DIAS 78; BP_DIAS 81; BP_DIAS 87
[2018-11-22] MEDS: BISOPROLOL FUM 2.5 MG PER 1/2TAB PO SCH (21:31)
[2018-11-22 22:00] VITALS: BP 154/81
[2018-11-22] MEDS ORDERED: PHYTONADIONE 5 MG TAB PO ONE (22:00)
[2018-11-23] VITALS (10 sets, daily range): BP systolic 133–202; BP diastolic 70–97
[2018-11-23] MEDS ORDERED: VANCOMYCIN HCL 1,000 MG, VIAL MATE ADAPTER 1 EACH in D5W 250 ML IV SCH (06:00)
--- NOTE | 2018-11-23 06:15 | IPN ---
DATE OF VISIT: 11/22/2018 SUBJECTIVE: The patient is seen and examined in the room today. The patient denies any acute complaints, denies any chest pain or shortness of breath. OBJECTIVE: VITAL SIGNS: Temperature 96.9, pulse 79, respirations 16, blood pressure 126/80, pulse ox 96% on room air. GENERAL: The patient is alert and awake, no sign of distress. HEENT: Normocephalic atraumatic. Extraocular movement grossly intact. CARDIOVASCULAR: Positive S1, S2. Irregularly, irregular. LUNGS: Clear to auscultation bilaterally. ABDOMEN: Soft, nontender, bowel sounds present. EXTREMITIES: No edema. LABORATORY DATA: WBC 7.80, hemoglobin 12.2, hematocrit 37.5, platelet count 222. Sodium 142, potassium 3.9, chloride 106, carbon dioxide 30. BUN 12, creatinine 0.75, GFR 65, fasting glucose 103. Calcium 8.3, magnesium 2. PT 28.5, INR 2.61. ASSESSMENT AND PLAN: 1. Syncopal episode. Orthostatic negative. CT of the head negative. On telemetry the patient was noted to have a five second pause. Cardiology was consulted. The patient is scheduled for possible pacemaker placement on November 23, 2018. Vitamin K given to the patient to reverse the INR. 2. Atrial fibrillation. In preparation for the pacemaker placement the INR is being reversed with vitamin K. The patient is on Zebeta. 3. Hypertension. Blood pressure in satisfactory range on Zebeta. 4. Migraines. On Depakote. 5. Anxiety/depression. 6. Deep venous thrombosis prophylaxis. The patient is in the process of INR reversal. Continue on knee high compressions.
[2018-11-23 06:16] LABS: HEMATOCRIT 37.7 % (36.0-47.0); HEMOGLOBIN 12.1 g/dl (12.0-15.5); MEAN CORPUSCULAR HEMOGLOBIN 29.1 pg (27.0-33.0); MEAN CORPUSCULAR HGB CONC 32.1 g/dl (32.0-36.5); MEAN CORPUSCULAR VOLUME 90.6 fl (80.0-96.0); PLATELET COUNT, AUTOMATED 221 10^3/uL (150-450); RED BLOOD COUNT 4.16 10^6/uL (4.00-5.40); WHITE BLOOD COUNT 7.3 10^3/uL (4.0-10.0)
[2018-11-23 06:33] LABS: INR 1.56; PROTHROMBIN TIME 18.9 SECONDS (12.1-14.4)
[2018-11-23 06:44] LABS: BLOOD UREA NITROGEN 15 MG/DL (7-18); CALCIUM LEVEL 8.5 MG/DL (8.8-10.2); CARBON DIOXIDE LEVEL 29 MEQ/L (21-32); CHLORIDE LEVEL 106 MEQ/L (98-107); CREATININE FOR GFR 0.72 MG/DL (0.55-1.30); GLOMERULAR FILTRATION RATE > 60.0 (>39); GLUCOSE, FASTING 104 MG/DL (70-100); POTASSIUM SERUM 4.4 MEQ/L (3.5-5.1); SODIUM LEVEL 142 MEQ/L (136-145)
[2018-11-23] MEDS ORDERED: LR 1,000 ML IV SCH ×2 (07:00→18:00)
[2018-11-23] MEDS: FLUTICASONE HFA 220 MCG 12 GM INHALER (FLOVENT) INH SCH ×2 (08:02→20:35)
--- NOTE | 2018-11-23 08:13 | IPNPDOC ---
Text Note Date of Service The patient was seen on 11/23/18. NOTE SUBJECTIVE: Patient was interviewed and examined today at bedside. She remains comfortable and in good spirits. She recalls speaking in great detail with Dr. Wallace last evening regarding the pacemaker placement scheduled for later today. She has remained nothing by mouth overnight. She is currently receiving lactated Ringer's and will be receiving preoperative antibiotics. Her heart rate has remained stable largely within the mid to high 70s. She remains on bisoprolol 7. 5 mg at night. Blood pressure 133/84 this morning. He denies any recurrent episodes of syncope. No headache. No chest pain/pressure. No difficulty breathing, no new onset of cough or wheezing. Patient reports urinating and stooling appropriately. She denies any abdominal discomfort. OBJECTIVE: VITALS: Please see below EXAM: Gen.: Patient is awake, alert, oriented, in no acute distress. Patient was found to be lying upright in her hospital bed comfortably resting. Head: Normal cephalic atraumatic EENT: EOMI, sclera nonicteric, mucous membranes moist Neck: No JVD, no lymphadenopathy, trachea midline Cardiac: Irregularly irregular rate and rhythm, no murmurs appreciated Lungs: Clear to auscultation laterally no wheezing rales or rhonchi Abdomen: Soft, nontender, no masses, bowel sounds present Extremities: Moves extremities equally, no calf tenderness or lower extremity swelling Psych: Mood and affect are appropriate LABS: Please see below IMAGING: Head CT (11/14): Minimal volume loss. Chest XR (11/14): Moderate cardiac enlargement. Otherwise no acute disease ASSESSMENT: Swathi is a 78-year-old female who presented emergency department following a single episode of syncope in which the patient was sitting quietly at the dining table eating breakfast. She was unsure as to whether or not she had loss consciousness. No report of aura or post-ictal state. While under observation for syncope, patient was noted to have a 5 second pause. Cardiology was consulted, planned for pacemaker placement this afternoon. PLAN: Syncopal episode Syncopal episode occurred with the patient was sitting comfortably at a dining room table eating breakfast. Patient is unsure whether she lost consciousness. No aura or postictal state. No abnormal labs in the emergency department. Negative orthostatics. Patient was admitted for observation. 5 second positive via telemetry on the . Dr. Yanes was consulted, patient's Coumadin was reversed with Vitamin K, plan for pacemaker placement this afternoon. Atrial fibrillation INR being reversed with vitamin K, patient remains on Zebeta for rate control Hypertension Pressure controlled with the beta Migraine Patient continues on Depakote 250 mg for migraine prophylaxis Anxiety/depression Nausea Zofran when necessary Hyperlipidemia Simvastatin 40 mg daily Reflux disease Continue on omeprazole 20 mg daily DVT prophylaxis: s/p Coumadin reversal with Vitamin K, Pacemaker to be placed today Sequentials VS,Fishbone, I+O VS, Fishbone, I+O Laboratory Tests 11/23/18 05:36 Red Blood Count 4.16, Mean Corpuscular Volume 90.6, Mean Corpuscular Hemoglobin 29.1, Mean Corpuscular Hemoglobin Concent 32.1, Red Cell Distribution Width 13.4, Calcium Level 8.5 L Vital Signs Date Time Temp Pulse Resp B/P (MAP) Pulse Ox O2 Delivery O2 Flow Rate FiO2 11/23/18 06:00 97.5 74 16 142/72 (95) 96 I&O- Last 24 Hours up to 6 AM 11/23/18 06:00 Intake Total 870 ml Output Total 550 ml Balance 320 ml GME ATTESTATION GME ATTESTATION My faculty preceptor for this patient encounter was physically present during the encounter and was fully available. All aspects of the patient interview, examination, medical decision making process, and medical care plan development were reviewed and approved by the faculty preceptor. The faculty preceptor is aware and concurs with the plan as stated in the body of this note and will attest to such by his/her cosignature. SONA SHAHID DO Nov 23, 2018 08:13
[2018-11-23] MEDS: LORATADINE 10 MG TAB PO SCH (08:32)
[2018-11-23] MEDS: MONTELUKAST 10 MG TAB PO SCH (08:32)
[2018-11-23] MEDS: OMEPRAZOLE 20 MG CAP PO SCH (08:32)
--- NOTE | 2018-11-23 08:49 | IPN ---
DATE: 11/23/2018 Mrs. Johnson has done well. She has not had any recurrent episodes of pauses and there was no near/syncope. Telemetry monitoring reveals ongoing atrial fibrillation. She has no complaints this morning. She was seen yesterday by Dr. Wallace, and there is a plan to place single-chamber pacemaker electrode today. She received by him 10 mg of subcutaneous vitamin K and 10 mg of oral vitamin K. Her vital signs this morning, blood pressure 134/70, heart rate in 70s mostly. Her fluid balance yesterday was approximately equal. She is alert and oriented, appropriate. Lungs are clear. Heart exam reveals irregularly irregular rhythm. No gallop or rub. Abdomen is soft, nontender. No edema. Laboratory alatorre, basic metabolic panel is normal. Glucose is 104. CBC is normal. Her INR is 1.6. ASSESSMENT AND PLAN: Mrs. Johnson is a 78-year-old female, who has chronic atrial fibrillation and presented with syncopal events that sounds cardiac by history. Subsequent telemetry monitoring revealed single pause a little over 5 seconds that was asymptomatic. At this point, I think that clearly warrants placement of pacemaker is planned for later today. I am little bit concerned that the high dose of vitamin K that was administered will complicate the post procedural management of anticoagulation. It will probably take at least 5-7 days before INR becomes therapeutic and she most likely will need at least transient alternative anticoagulation.
[2018-11-23] MEDS ORDERED: MIDAZOLAM INJ 2 MG/2 ML VIAL (J2250) As Ordered ONE (14:11)
[2018-11-23] MEDS ORDERED: fentaNYL 100 MCG/2 ML INJECTION (J3010) As Ordered ONE (14:12)
[2018-11-23] MEDS ORDERED: PROPOFOL 200 MG/20 ML VIAL As Ordered ONE ×4 (14:12→17:05)
[2018-11-23] MEDS ORDERED: LIDOCAINE 2% INJ 100 MG/5 ML SDV (FOR ANES.) As Ordered ONE (14:12)
[2018-11-23] MEDS ORDERED: MUPIROCIN 2% OINT 22 GM TUBE As Ordered ONE (15:03)
[2018-11-23] MEDS ORDERED: ISOVUE-300 61% 50ML VIAL (Q9967) As Ordered ONE ×2 (15:03→15:59)
[2018-11-23] MEDS ORDERED: LIDOCAINE 1% SDV INJ 30 ML VIAL As Ordered ONE (15:03)
[2018-11-23] MEDS ORDERED: VANCOMYCIN 1000 MG/20 ML VIAL (J3370) As Ordered ONE (15:50)
[2018-11-23] MEDS ORDERED: fentaNYL 100 MCG/2 ML INJECTION (J3010) IV PRN (18:00)
[2018-11-23] MEDS ORDERED: ONDANSETRON 4MG/2ML VIAL (J2405) IV PRN (18:00)
--- NOTE | 2018-11-23 18:18 | RO ---
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 Patient requires ongoing AV oscar slowing medication for control of tachycardia, which can only be done safely with a pacemaker to manage bradycardia. 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 Patient requires ongoing AV oscar slowing medication for control of tachycardia, which can only be done safely with a pacemaker to manage bradycardia. 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 Patient requires ongoing AV oscar slowing medication for control of tachycardia, which can only be done safely with a pacemaker to manage bradycardia. PROCEDURE: Implantation of a single chamber Medtronic pacemaker. SURGEON: John Wallace MD QUALITY ASSURANCE ASSESSOR: None. ANESTHESIA: Lidocaine 1%/monitored anesthetic care. No specimens. Estimated blood loss: Less than 10 mL. No blood products replaced. No drains. No complications. DESCRIPTION OF PROCEDURE: The patient was prepped and draped over the left pectoral region. 3M Ioban film was applied. Lidocaine 1% was used for local anesthetic. A left subclavian venogram was performed using a total volume of 20 mL consisting of five parts IV contrast to one part normal saline. This was injected via an antecubital vein in the left upper extremity. This was used in real time to visualize percutaneous venous access into the extrathoracic portion of the left subclavian vein using a micropuncture needle during real-time fluoroscopy. This was then guidewire exchanged for the guidewire that came with the 7-Latvian sheath. Next, a PEAK PlasmaBlade was used to make an incision approximately 3 inches in length, 1 cm below the skin entry site of the guidewire and approximately parallel to the left clavicle. A PEAK PlasmaBlade was used to dissect through the fatty layer and the fibrous Mackenzie's fascia. The pacemaker pocket was then formed in a caudal direction using blunt dissection using two fingers to separate the prepectoral fascia from the Mackenzie's fascia. The guidewire was then pulled through the skin into the incision site. Next, the 7-Latvian sheath with introducer was placed into the left subclavian vein over the guidewire. This was used for vein access for the right ventricle lead. The right ventricle lead was placed under fluoroscopic guidance in the vicinity of the right ventricle apex position where it was secured with a total of eight turns. This position was found to be electrically and anatomically satisfactory. No diaphragm stimulation could be palpated on either side at 10 volts high output pacing. The sheath was then removed, and the ventricle lead secured to the pectoral muscle using two individual sutures consisting of #0 Vicryl to secure it to the pectoral muscle. Another #0 Vicryl suture was then used to the pectoral muscle to serve as the tie-down for the pacemaker pulse generator. Next, a medium size TYRX envelope was cut into four pieces and placed into the pacemaker pocket. Next, the terminal pin of the ventricle lead was placed into the header of the pacemaker pulse generator and secured by tightening the set screw with the hex screwdriver. The excess lead material was then coiled underneath and placed along with the pacemaker pulse generator into the pocket with the excess lead material below and the pacemaker pulse generator on top. The pulse generator was then secured to the pectoral muscle with the previously placed #0 Ethibond suture. The deep layer was then closed using individual sutures consisting of #2-0 Vicryl. A few #3-0 Vicryl sutures were used to help approximate the more superficial layer. The skin was then closed using britney. The patient tolerated the procedure well without any immediate complications. The pacemaker pulse generator implanted was a [employer] [place] XT SR MRI, model W1SR01 with serial number [id number]. The right ventricle lead implanted was a Medtronic model 329057 with serial number [id number]. Final testing with the PSA analyzer in the operating room in bipolar configuration showed capture threshold of 0.4 volts at 0.5 milliseconds with R wave amplitude of 9.5 millivolts and a lead impedance of 734 ohms and slew rate of 3.4 volts per second.
[2018-11-23] MEDS: WARFARIN SOD 5 MG TAB PO SCH (18:51)
--- NOTE | 2018-11-23 19:38 | ECGEPIP ---
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
--- NOTE | 2018-11-23 19:42 | REP ---
Clinical: Status post pacemaker . Comparison: 11/20/2018 . Findings: Left-sided single lead pacemaker in satisfactory position. No pneumothorax. Trace left basilar atelectasis cannot be excluded. Stable cardiomegaly. Impression: Pacemaker in satisfactory position. No pneumothorax. Trace left basilar atelectasis. Electronically Signed by Moisés Jimenez MD 11/23/2018 07:34 P
--- NOTE | 2018-11-23 20:11 | REP ---
Clinical: Pacemaker. Technique: Intraoperative fluoroscopic imaging using portable C-arm technique. Findings: Three fluoroscopic images demonstrate the patient to be status post single lead pacemaker with lead overlying the right ventricle. Total fluoroscopic time 3 minutes 37 seconds. Impression: Single lead pacemaker placement in satisfactory position. Electronically Signed by Moisés Jimenez MD 11/23/2018 08:03 P
[2018-11-23] MEDS: BISOPROLOL FUM 2.5 MG PER 1/2TAB PO SCH (20:45)
[2018-11-23] MEDS: SIMVASTATIN 40 MG TAB PO SCH (20:45)
[2018-11-23] MEDS: DIVALPROEX 250MG *ER* TAB PO SCH (20:45)
[2018-11-23] MEDS: ASCORBIC ACID 250 MG TAB PO SCH (20:45)
[2018-11-23] MEDS: ACETAMINOPHEN TAB 650MG DOSE (2X325MG) PO PRN (22:21)
[2018-11-24] VITALS (7 sets, daily range): BP systolic 137–167; BP diastolic 65–95
[2018-11-24] MEDS: ACETAMINOPHEN TAB 650MG DOSE (2X325MG) PO PRN ×4 (04:21→23:23)
[2018-11-24 04:59] LABS: HEMATOCRIT 38.7 % (36.0-47.0); HEMOGLOBIN 12.4 g/dl (12.0-15.5); MEAN CORPUSCULAR HEMOGLOBIN 29.1 pg (27.0-33.0); MEAN CORPUSCULAR VOLUME 90.8 fl (80.0-96.0); PLATELET COUNT, AUTOMATED 225 10^3/uL (150-450); RED BLOOD COUNT 4.26 10^6/uL (4.00-5.40); WHITE BLOOD COUNT 8.8 10^3/uL (4.0-10.0)
[2018-11-24 05:13] LABS: INR 1.17; PROTHROMBIN TIME 15.1 SECONDS (12.1-14.4)
[2018-11-24 05:19] LABS: BLOOD UREA NITROGEN 10 MG/DL (7-18); CALCIUM LEVEL 8.2 MG/DL (8.8-10.2); CARBON DIOXIDE LEVEL 30 MEQ/L (21-32); CHLORIDE LEVEL 107 MEQ/L (98-107); CREATININE FOR GFR 0.68 MG/DL (0.55-1.30); GLOMERULAR FILTRATION RATE > 60.0 (>39); GLUCOSE, FASTING 94 MG/DL (70-100); POTASSIUM SERUM 4.5 MEQ/L (3.5-5.1); SODIUM LEVEL 144 MEQ/L (136-145)
--- NOTE | 2018-11-24 07:53 | REP ---
Chest x-ray: Two views. History: Status post pacemaker. Comparison study: November 23, 2018. Findings: A unipolar pacemaker is in place in the right heart via the left side. Skin britney are noted adjacent to the power plant. There is no evidence of pneumothorax or hydrothorax. Moderate cardiac enlargement is observed as before. Pulmonary vasculature is cephalized. No pleural effusion or pulmonary edema seen. No focal infiltrate. Impression: Moderate cardiomegaly. Pacemaker in place. No complication is identified. Electronically Signed by Jefe Ocampo MD 11/24/2018 07:44 A
[2018-11-24] MEDS: OMEPRAZOLE 20 MG CAP PO SCH (08:29)
[2018-11-24] MEDS: ASCORBIC ACID 250 MG TAB PO SCH ×2 (08:29→21:20)
[2018-11-24] MEDS: LORATADINE 10 MG TAB PO SCH (08:29)
[2018-11-24] MEDS: MONTELUKAST 10 MG TAB PO SCH (08:30)
[2018-11-24] MEDS: FLUTICASONE HFA 220 MCG 12 GM INHALER (FLOVENT) INH SCH ×2 (08:42→21:00)
--- NOTE | 2018-11-24 14:03 | IPNPDOC ---
Text Note Date of Service The patient was seen on 11/24/18. NOTE SUBJECTIVE: Patient interviewed and examined in the ICU. She is s/p op day 1 from pacemaker placement by Dr. Hahn. She does admit to some discomfort at the incision site, otherwise has adequate pain control. No reported events overnight, rate has remained in the 70's. She denies other acute complaints. OBJECTIVE: VITALS: Please see below EXAM: Gen.: Patient is alert and oriented, in no acute distress, sitting in her chair in the ICU room dressed in hospital clothing. Head: Normal cephalic atraumatic EENT: EOMI, sclera nonicteric, mucous membranes moist Neck: No JVD, no lymphadenopathy, trachea midline, no lymphadenopathy Cardiac: Irregularly irregular rate and rhythm, no murmurs appreciated Lungs: Clear to auscultation laterally no wheezing rales or rhonchi Abdomen: Soft, nontender, no masses, bowel sounds present Extremities: Left arm in sling. Moves extremities equally, no calf tenderness or lower extremity swelling Psych: Mood and affect are appropriate LABS: Please see below IMAGING: Head CT (11/14): Minimal volume loss. Chest XR (11/14): Moderate cardiac enlargement. Otherwise no acute disease Chest XR (11/14): Moderate cardiomegaly. Pacemaker in place. No complication is identified. ASSESSMENT: Swathi is a 78-year-old female who presented emergency department following a single episode of syncope in which the patient was sitting quietly at the dining table eating breakfast. She was unsure as to whether or not she had loss consciousness. No report of aura or post-ictal state. While under observation for syncope, patient was noted to have a 5 second pause. Pacemaker placed yesterday (11/23/18) by doctor Hahn without issue. PLAN: Syncopal Episode Syncopal episode occurred with the patient was sitting comfortably at a dining room table eating breakfast. Patient is unsure whether she lost consciousness. No aura or postictal state. No abnormal labs in the emergency department. Negative orthostatics. Patient was admitted for observation. 5 second positive via telemetry on the . Dr. Yanes, the patient's regular tool design engineer, was consulted. Patient's Coumadin was reversed with Vitamin K, per Dr. Hahn. Pacemaker placed yesterday, 11/24. Placement confirmed with CXR this am. Transfer to Med/Surg Tele Continue on tele monitor Atrial fibrillation Back on Coumadin 5 mg daily, s/p reversal with a rather substantial dose of Vit K INR subtherapeutic at 1.17, continue to monitor with daily labs Rate controlled at 68 bpm Hypertension Pressure controlled with the bisoprolol 7.5 mg QHS Migraine Patient continues on Depakote 250 mg for migraine prophylaxis Anxiety/depression Nausea Zofran when necessary Hyperlipidemia Simvastatin 40 mg daily Reflux disease Continue on omeprazole 20 mg daily DVT prophylaxis: Anticoagulation with Coumadin 5 mg Sequentials VS,Fishbone, I+O VS, Fishbone, I+O Laboratory Tests 11/24/18 04:23 Red Blood Count 4.26, Mean Corpuscular Volume 90.8, Mean Corpuscular Hemoglobin 29.1, Mean Corpuscular Hemoglobin Concent 32.0, Red Cell Distribution Width 13.3, Calcium Level 8.2 L Vital Signs Date Time Temp Pulse Resp B/P (MAP) Pulse Ox O2 Delivery O2 Flow Rate FiO2 11/24/18 11:37 97.8 68 19 167/93 (117) 96 11/24/18 06:00 2.0 I&O- Last 24 Hours up to 6 AM 11/24/18 06:00 Intake Total 2280 ml Output Total 1400 ml Balance 880 ml GME ATTESTATION GME ATTESTATION My faculty preceptor for this patient encounter was physically present during the encounter and was fully available. All aspects of the patient interview, examination, medical decision making process, and medical care plan development were reviewed and approved by the faculty preceptor. The faculty preceptor is aware and concurs with the plan as stated in the body of this note and will attest to such by his/her cosignature. SONA SHAHID DO Nov 24, 2018 14:03
[2018-11-24] MEDS: WARFARIN SOD 5 MG TAB PO SCH (16:29)
[2018-11-24] MEDS: SIMVASTATIN 40 MG TAB PO SCH (21:20)
[2018-11-24] MEDS: DIVALPROEX 250MG *ER* TAB PO SCH (21:21)
[2018-11-24] MEDS: BISOPROLOL FUM 2.5 MG PER 1/2TAB PO SCH (21:21)
[2018-11-25 06:00] VITALS: BP 157/69
[2018-11-25 06:16] LABS: HEMATOCRIT 37.7 % (36.0-47.0); HEMOGLOBIN 12.5 g/dl (12.0-15.5); MEAN CORPUSCULAR HEMOGLOBIN 29.3 pg (27.0-33.0); MEAN CORPUSCULAR HGB CONC 33.2 g/dl (32.0-36.5); MEAN CORPUSCULAR VOLUME 88.5 fl (80.0-96.0); PLATELET COUNT, AUTOMATED 227 10^3/uL (150-450); RED BLOOD COUNT 4.26 10^6/uL (4.00-5.40); WHITE BLOOD COUNT 8.5 10^3/uL (4.0-10.0)
[2018-11-25 06:41] LABS: BLOOD UREA NITROGEN 12 MG/DL (7-18); CALCIUM LEVEL 8.3 MG/DL (8.8-10.2); CARBON DIOXIDE LEVEL 26 MEQ/L (21-32); CHLORIDE LEVEL 107 MEQ/L (98-107); CREATININE FOR GFR 0.63 MG/DL (0.55-1.30); GLOMERULAR FILTRATION RATE > 60.0 (>39); GLUCOSE, FASTING 111 MG/DL (70-100); MAGNESIUM LEVEL 2.1 MG/DL (1.8-2.4); SODIUM LEVEL 141 MEQ/L (136-145)
[2018-11-25] MEDS: FLUTICASONE HFA 220 MCG 12 GM INHALER (FLOVENT) INH SCH (07:24)
[2018-11-25 08:17] LABS: INR 1.05; PROTHROMBIN TIME 13.8 SECONDS (12.1-14.4)
[2018-11-25] MEDS: MONTELUKAST 10 MG TAB PO SCH (08:17)
[2018-11-25] MEDS: OMEPRAZOLE 20 MG CAP PO SCH (08:17)
[2018-11-25] MEDS: ASCORBIC ACID 250 MG TAB PO SCH (08:17)
[2018-11-25] MEDS: LORATADINE 10 MG TAB PO SCH (08:17)
[2018-11-25 08:18] LABS: PARTIAL THROMBOPLASTIN TIME 29.8 SECONDS (25.4-37.6)
[2018-11-25 14:00] VITALS: BP 158/68
--- NOTE | 2018-11-25 14:29 | DS.PDOC ---
Discharge Summary General Date of Admission Nov 22, 2018 at 15:39 Discharge Summary PROCEDURES: Pacemaker placement on 11/23/18 ADMITTING DIAGNOSES: 1. Syncopal episode 2. Atrial fibrillation 3. Hypertension 4. Migraine 5. Anxiety/depression 6. Hyperlipidemia 7. Reflux disease DISCHARGE DIAGNOSES: 1. 5second pause status post pacemaker placement 2. Atrial fibrillation 3. Hypertension 4. Migraine 5. Anxiety/depression 6. Hyperlipidemia 7. Reflux disease COMPLICATIONS/CHIEF COMPLAINT: Fall From Standing Syncope Collapse. HISTORY OF PRESENT ILLNESS: Swathi Johnson is a 78 year old white female, history significant for rate- controlled a-fib on Coumadin, hypercholesterolemia, HTN, and migraine who presented to the emergency department for a brief syncopal episode that occurred the morning of 11/20/18 while the patient was seated in a chair. She was having breakfast with her daughter when she suddenly noticed she was not feeling well. She recalls slumping in her chair momentarily. She denied aura or post-episode confusion. Per patient, she had been ill the previous 4 days with numerous bouts of diarrhea and abdominal cramping. Patient reported improvement in her symptoms yesterday. Last evening, she reports having a headache, which continued this morning and improved upon presentation to the ED. In the ED, patient was given a liter of NS and metoclopramide for nausea. Head CT and CXR was negative. CBC negative, CMP negative. Troponin negative, TSH negative. A similar episode occurred in 09/16 were the patient reported to the ED with a chief complaint of syncope and fall. She received a full work-up including EKG and Head CT and was subsequently discharged without issue. The Hospitalist team was called to admit the patient for further observation and workup. HOSPITAL COURSE: The morning of 11/21/18, patient was noted to have an asymptomatic 5 second pause on telemetry. Patient's assembler fishing floats, Dr. Yanes, was consulted. Per his recommendations, patient's coumadin was held in anticipation of pacemaker placement later in the week. On 11/22, patient was given a 10 mg injection of Vitamin K for Coumadin reversal. A second dose of oral Vitamin K 10 mg was later given PO. All the while, patient remained asymptomatic and without acute complaints. On 11/23, patient underwent pacemaker placement performed by Dr. Wallace. Following the procedure, patient was placed back on Coumadin 5 mg daily. Rate and pressures remained stable, placement was confirmed with CXR the following morning. Patient was observed on 11/24 via tele without issue. Discharge on 11/25 with close follow-up regarding atrial fibrillation, anticoagulation and s/p pacemaker placement. PT/INR of 13.8/1.05 at time of discharge. DISCHARGE MEDICATIONS: Please see below. ALLERGIES: Please see below. PHYSICAL EXAMINATION ON DISCHARGE: VITAL SIGNS: Please see below. GENERAL: She is awake, alert and oriented 3, sitting comfortably in the hospital chair eating breakfast. No acute distress. HEENT: Normocephalic, atraumatic, EOMI, mucus membranes moist, trachea midline, no apparent JVD CARDIOVASCULAR EXAMINATION: Irregularly irregular, no murmurs RESPIRATORY EXAMINATION: Clear to auscultation bilaterally ABDOMINAL EXAMINATION: Soft, nontender, nondistended EXTREMITIES: No lower extremity edema, no calf tenderness bilaterally NEUROLOGICAL EXAMINATION: Alert and oriented 3, no aphasia, no focal deficits PSYCHIATRIC EXAMINATION: Mood and affect appropriate LABORATORY DATA: Please see below. IMAGING: Head CT (11/14): Minimal volume loss. Chest XR (11/14): Moderate cardiac enlargement. Otherwise no acute disease Chest XR (11/14): Moderate cardiomegaly. Pacemaker in place. No complication is identified. ACTIVITY: As tolerated DIET: 2 gram sodium restriction DISPOSITION: Home with care of daughter DISCHARGE INSTRUCTIONS: 1. Please keep your INR check on 11/27/18 and again on 11/29/18. 2. Please schedule a follow-up appointment with your assembler fishing floats, Dr. Yanes in 1-2 weeks for continued management of your atrial fibrillation 3. Follow-up appointment with Dr. Wallace scheduled for 12/01/18 for continued management of your recently placed pacemaker 4. Follow-up appointment with Dr. Ken on 12/04/18 for hospital follow-up 5. Please continue discharge medications, including Coumadin, as prescribed 6. Please present to the ED should your syncopal symptoms recur. DISCHARGE CONDITION: Stable TIME SPENT ON DISCHARGE: Greater than 30 minutes. Vital Signs/I&Os Vital Signs Date Time Temp Pulse Resp B/P (MAP) Pulse Ox O2 Delivery O2 Flow Rate FiO2 11/25/18 06:00 97.3 74 17 157/69 (98) 94 11/24/18 06:00 2.0 I&O- Last 24 Hours up to 6 AM 11/25/18 06:00 Intake Total 930 ml Output Total 795 ml Balance 135 ml Laboratory Data Labs 24H Laboratory Tests 2 11/25/18 05:56: Nucleated Red Blood Cells % (auto) 0.0, Anion Gap 8, Glomerular Filtration Rate > 60.0, Blood Urea Nitrogen 12, Creatinine 0.63, Sodium Level 141, Potassium Le naa 4.0, Chloride Level 107, Carbon Dioxide Level 26, Calcium Level 8.3L, Magnesium Level 2.1 11/25/18 07:36: Prothrombin Time 13.8, Prothromb Time International Ratio 1.05, Activated Partial Thromboplast Time 29.8 CBC/BMP Laboratory Tests 11/25/18 05:56 Red Blood Count 4.26, Mean Corpuscular Volume 88.5, Mean Corpuscular Hemoglobin 29.3, Mean Corpuscular Hemoglobin Concent 33.2, Red Cell Distribution Width 13.2, Calcium Level 8.3 L Discharge Medications Scheduled (Benazepril HCl/Hydrochlor 20-12.5 mg) 1 Tab Tab, 1 TAB PO DAILY, (Reported) (Amlodipine Besylate/Benaz 5-20 mg) 1 Cap Cap, 1 CAP PO QHS, (Reported) Aspirin (Aspirin 81) 81 Mg Tab, 81 MG PO DAILY, (Reported) Bisoprolol Fumarate (Bisoprolol Fumarate) 5 Mg Tab, 7.5 MG PO QHS, (Reported) Citalopram Hydrobromide (Citalopram) 20 Mg Tab, 20 MG PO QHS, (Reported) Divalproex Sodium (Divalproex Sodium ER) 250 Mg Tab, 250 MG PO QHS, (Reported) Fluticasone Propionate (Flovent Hfa) 220 Mcg/Act Aer, 1 PUFF INH BID, (Reported) Loratadine (Loratadine) 10 Mg Tab, 10 MG PO DAILY, (Reported) Montelukast Sodium (Montelukast Sodium) 10 Mg Tab, 10 MG PO DAILY, (Reported) Omeprazole (Omeprazole) 20 Mg Cap, 20 MG PO DAILY, (Reported) Simvastatin - High Dose (Simvastatin) 40 Mg Tab, 40 MG PO QHS, (Reported) Warfarin Sod (Warfarin Sodium) 5 Mg Tab, 5 MG PO QPM, (Reported) Scheduled PRN Acetaminophen (Acetaminophen) 325 Mg Tab, 650 MG PO Q4H PRN for PAIN, (Reported) Albuterol Sulfate (Albuterol Sulfate) 2.5 Mg/0.5 Ml Neb, 1 VIAL NEB Q6H PRN for SHORTNESS OF BREATH, (Reported) Albuterol Sulfate (Ventolin Hfa) 108 Mcg/Act Aer, 2 PUFF INH Q6H PRN for SHORTNESS OF BREATH, (Reported) Prednisone (Prednisone) 20 Mg Tab, 20 MG PO DAILY PRN for ASTHMA, (Reported) Allergies Coded Allergies: amoxicillin (Verified Adverse Reaction, Mild, severe diarrhea, 11/22/18) azithromycin (Verified Adverse Reaction, Mild, N/V, 11/22/18) clindamycin (Verified Adverse Reaction, Mild, N/V, 11/22/18) GME ATTESTATION GME ATTESTATION My faculty preceptor for this patient encounter was physically present during the encounter and was fully available. All aspects of the patient interview, examination, medical decision making process, and medical care plan development were reviewed and approved by the faculty preceptor. The faculty preceptor is aware and concurs with the plan as stated in the body of this note and will attest to such by his/her cosignature. SONA SHAHID DO Nov 25, 2018 14:29
== END 2018-11-25 15:30 | disposition home or self-care (01) | DRG 244 ==
LOC: EDBD 11:15 → M ED 11:15 → M ED INP 16:16 → M MSPAV 18:35 → OBSVTOIN 11-22 15:39 → M ICU 11-23 15:14 → M MSPAV 11-24 11:34
PROVIDERS: ADMIT Internal Medicine; ATTEND Internal Medicine
PROC: 02HK3JZ Insertion of Pacemaker Lead into Right Ventricle, Percutaneous Approach (ICD-10-PCS; 2018-11-23)
PROC: 0JH604Z Insertion of Pacemaker, Single Chamber into Chest Subcutaneous Tissue and Fascia, Open Approach (ICD-10-PCS; principal; 2018-11-23 15:00)
DX: I49.5 Sick sinus syndrome (principal); I48.2 Chronic atrial fibrillation; E78.00 Pure hypercholesterolemia, unspecified; I10 Essential (primary) hypertension; G43.909 Migraine, unspecified, not intractable, without status migrainosus; J45.909 Unspecified asthma, uncomplicated; F41.9 Anxiety disorder, unspecified; M85.80 Other specified disorders of bone density and structure, unspecified site; R19.7 Diarrhea, unspecified; F32.9 Major depressive disorder, single episode, unspecified; E66.9 Obesity, unspecified; R11.0 Nausea; K21.9 Gastro-esophageal reflux disease without esophagitis; E55.9 Vitamin D deficiency, unspecified; Z79.01 Long term (current) use of anticoagulants; Z79.82 Long term (current) use of aspirin; Z79.899 Other long term (current) drug therapy; Z88.0 Allergy status to penicillin; Z88.1 Allergy status to other antibiotic agents; Z68.36 Body mass index [BMI] 36.0-36.9, adult

== ENCOUNTER → 2018-11-29 | Outpatient (REF) | payer MEDICARE, MEDICAID ==
[~2018-11-29] MED LIST changes: -/LORA10TA PO; -/MOXI40TA PO; -/WARF25TA PO; -/WARF5TA PO; +ACET1TAB55 PO; -ACET50TA PO; +ALB2.5NEB NEB; +AMLO5CAP2 PO; +ASPI81TA26 PO; +AVEL1TAB2 PO; +BENA20TA6 PO; +CITA20TA7 PO; +COUM1TAB17 PO; +COUM1TAB18 PO; +DIVA250T7 PO; +FLUT22IN INH; +LORA-243 PO; +LORA-385 PO; +MAPA500T17 PO; +MONT10TA2 PO; +PRED20TA PO; +SIMV40TA2 PO; +VENTAER INH; +WARF-23 PO
[2018-11-29 12:16] LABS: INR 1.32; PROTHROMBIN TIME 16.6 SECONDS (12.1-14.4)
[2018-11-29 13:06] LABS: ALBUMIN 3.5 GM/DL (3.2-5.2); ALT/SGPT 21 U/L (12-78); BILIRUBIN,TOTAL 0.5 MG/DL (0.2-1.0); BLOOD UREA NITROGEN 13 MG/DL (7-18); CALCIUM LEVEL 8.6 MG/DL (8.8-10.2); CARBON DIOXIDE LEVEL 26 MEQ/L (21-32); CHLORIDE LEVEL 105 MEQ/L (98-107); CHOLESTEROL LEVEL 128 MG/DL (<200); CREATININE FOR GFR 0.82 MG/DL (0.55-1.30); GLOMERULAR FILTRATION RATE > 60.0 (>39); GLUCOSE, FASTING 99 MG/DL (70-100); HDL CHOLESTEROL 40 MG/DL (>40); LDL CHOLESTEROL 53 MG/DL (<100); NON-HDL-C 88 MG/DL; POTASSIUM SERUM 4.8 MEQ/L (3.5-5.1); SODIUM LEVEL 141 MEQ/L (136-145); TOTAL 25(OH) VITAMIN D 27.1 NG/ML (30.0-100.0); TRIGLYCERIDES LEVEL 173 MG/DL (<150)
[2018-11-29 14:10] LABS: MALB URINE SIEMENS 62.7 MG/L
[2018-11-29 15:29] LABS: HEMOGLOBIN A1c 6.5 %
== END ==
LOC: M SFHCPLAZ 09:56
PROVIDERS: ATTEND Internal Medicine
DX: Z51.81 Encounter for therapeutic drug level monitoring (principal); Z79.01 Long term (current) use of anticoagulants; E78.00 Pure hypercholesterolemia, unspecified; R73.01 Impaired fasting glucose; E55.9 Vitamin D deficiency, unspecified

== ENCOUNTER 2019-02-26 10:26 | Emergency (ER) | payer MEDICARE, MEDICAID ==
[~2019-02-26] VITALS: Ht 157.5 cm; Wt 92.8 kg
[~2019-02-26 10:26] MED LIST changes: -AMLO5CAP2 PO; +AMLO5CAP44 PO; +OMEP20CA4 PO
--- NOTE | 2019-02-26 11:19 | REP ---
Clinical: Trauma/fall. Comparison: 11/20/2018 . Findings: Age-related atrophy and microvascular ischemic changes are appreciated. The ventricles and sulci are symmetric. Song-white differentiation is maintained. There is no evidence for acute intracranial hemorrhage, mass/mass effect, pathology or infarction. No extra-axial fluid collection. Calvarium is intact. Paranasal sinuses and mastoid air cells are clear. Impression: Age related atrophy and microvascular ischemic changes. No acute intracranial hemorrhage, infarction, or mass/mass effect. Electronically Signed by Moisés Jimenez MD 02/26/2019 11:10 A
--- NOTE | 2019-02-26 11:21 | REP ---
Clinical: Trauma/fall. Technique: Axial noncontrast images from the skull base to the thoracic inlet with coronal and sagittal re-formations. Findings: Alignment is relatively maintained. There is no evidence for acute fracture / compression injury or subluxation. Moderate/advanced multilevel degenerative changes are appreciated including osteophytosis, endplate sclerosis and disc space narrowing most pronounced at C5-6, C4-5, and C6-7. Spinal canal is patent. Posterior elements and spinous processes intact. Paravertebral soft tissues normal. Impression: Moderate/advanced multilevel degenerative spondylosis. No acute fracture / compression injury or subluxation. Electronically Signed by Moisés Jimenez MD 02/26/2019 11:12 A
--- NOTE | 2019-02-26 11:30 | REP ---
Clinical: Trauma. Technique: AP and lateral. Findings: No acute fracture dislocation. Lateral view best demonstrates significant soft tissue swelling surrounding the proximal forearm without subcutaneous emphysema or foreign body. Impression: Significant swelling. No acute fracture or dislocation. Electronically Signed by Moisés Jimenez MD 02/26/2019 11:22 A
[2019-02-26] MEDS ORDERED: ADACEL/BOOSTRIX VACCINE (DIPHTH/PERTUSS/ACELL/TETANUS)0.5ML SYR (90715) IM ONE (12:15)
[2019-02-26] MEDS ORDERED: DERMABOND TOPICAL SKIN ADHESIVE TOP ONE (13:00)
[2019-02-26 13:33] VITALS: BP 122/78
== END 2019-02-26 13:55 | disposition home or self-care (01) ==
LOC: M ED 10:26
DX: S51.811A Laceration without foreign body of right forearm, initial encounter (principal); W01.198A Fall on same level from slipping, tripping and stumbling with subsequent striking against other object, initial encounter; Y92.9 Unspecified place or not applicable; Y93.9 Activity, unspecified; M47.9 Spondylosis, unspecified; E78.5 Hyperlipidemia, unspecified; I10 Essential (primary) hypertension; J45.909 Unspecified asthma, uncomplicated; K21.9 Gastro-esophageal reflux disease without esophagitis; Z79.01 Long term (current) use of anticoagulants; Z79.51 Long term (current) use of inhaled steroids; Z79.82 Long term (current) use of aspirin; Z79.899 Other long term (current) drug therapy; Z86.79 Personal history of other diseases of the circulatory system; Z88.0 Allergy status to penicillin; Z88.1 Allergy status to other antibiotic agents; Z95.0 Presence of cardiac pacemaker

== ENCOUNTER → 2019-05-02 | Outpatient (REF) | payer MEDICARE, MEDICAID ==
[~2019-05-02] MED LIST changes: +BISO5TAB9 PO
[2019-05-02 13:00] LABS: HEMATOCRIT 40.8 % (36.0-47.0); HEMOGLOBIN 13.2 g/dl (12.0-15.5); MEAN CORPUSCULAR HEMOGLOBIN 29.5 pg (27.0-33.0); MEAN CORPUSCULAR HGB CONC 32.4 g/dl (32.0-36.5); MEAN CORPUSCULAR VOLUME 91.3 fl (80.0-96.0); PLATELET COUNT, AUTOMATED 268 10^3/uL (150-450); RED BLOOD COUNT 4.47 10^6/uL (4.00-5.40); WHITE BLOOD COUNT 9.7 10^3/uL (4.0-10.0)
[2019-05-02 13:11] LABS: ALBUMIN 3.5 GM/DL (3.2-5.2); ALT/SGPT 14 U/L (12-78); BILIRUBIN,TOTAL 0.3 MG/DL (0.2-1.0); BLOOD UREA NITROGEN 17 MG/DL (7-18); CALCIUM LEVEL 9.2 MG/DL (8.8-10.2); CARBON DIOXIDE LEVEL 28 MEQ/L (21-32); CHLORIDE LEVEL 103 MEQ/L (98-107); CHOLESTEROL LEVEL 166 MG/DL (<200); CHOLESTEROL RISK RATIO 3.531 (<5); CREATININE FOR GFR 0.88 MG/DL (0.55-1.30); GLOMERULAR FILTRATION RATE > 60.0 (>39); GLUCOSE, FASTING 111 MG/DL (70-100); HDL CHOLESTEROL 47 MG/DL (>40); LDL CHOLESTEROL 69 MG/DL (<100); NON-HDL-C 119 MG/DL; POTASSIUM SERUM 4.4 MEQ/L (3.5-5.1); SODIUM LEVEL 139 MEQ/L (136-145); TOTAL PROTEIN 7.1 GM/DL (6.4-8.2); TRIGLYCERIDES LEVEL 252 MG/DL (<150)
[2019-05-02 13:15] LABS: HEMOGLOBIN A1c 6.3 %
== END ==
LOC: M SFHCPLAZ 10:22
PROVIDERS: ATTEND Internal Medicine
DX: Z79.01 Long term (current) use of anticoagulants (principal); Z79.899 Other long term (current) drug therapy; E78.00 Pure hypercholesterolemia, unspecified; R73.01 Impaired fasting glucose

== ENCOUNTER → 2019-10-29 | Outpatient (CLI) | payer MEDICARE, MEDICAID ==
[~2019-10-29] MED LIST changes: +BISO5TAB14 PO; -BISO5TAB9 PO; -MONT10TA2 PO; +MONT10TA4 PO; +OMEP1CAP73 PO; -OMEP20CA4 PO; -SIMV40TA2 PO; +SIMV40TA20 PO
[2019-10-29 12:50] LABS: HEMATOCRIT 44.5 % (36.0-47.0); HEMOGLOBIN 14.3 g/dl (12.0-15.5); MEAN CORPUSCULAR HEMOGLOBIN 29.5 pg (27.0-33.0); MEAN CORPUSCULAR HGB CONC 32.1 g/dl (32.0-36.5); MEAN CORPUSCULAR VOLUME 91.8 fl (80.0-96.0); PLATELET COUNT, AUTOMATED 312 10^3/uL (150-450); RED BLOOD COUNT 4.85 10^6/uL (4.00-5.40); WHITE BLOOD COUNT 12.9 10^3/uL (4.0-10.0)
[2019-10-29 13:21] LABS: ALBUMIN 3.5 GM/DL (3.2-5.2); ALT/SGPT 18 U/L (12-78); BILIRUBIN,TOTAL 0.7 MG/DL (0.2-1.0); BLOOD UREA NITROGEN 17 MG/DL (7-18); CARBON DIOXIDE LEVEL 30 MEQ/L (21-32); CHLORIDE LEVEL 100 MEQ/L (98-107); CHOLESTEROL LEVEL 200 MG/DL (<200); CHOLESTEROL RISK RATIO 4.255 (<5); CREATININE FOR GFR 0.87 MG/DL (0.55-1.30); GLOMERULAR FILTRATION RATE > 60.0 (>39); GLUCOSE, FASTING 105 MG/DL (70-100); HDL CHOLESTEROL 47 MG/DL (>40); LDL CHOLESTEROL 78 MG/DL (<100); NON-HDL-C 153 MG/DL; POTASSIUM SERUM 4.3 MEQ/L (3.5-5.1); SODIUM LEVEL 139 MEQ/L (136-145); TOTAL PROTEIN 7.1 GM/DL (6.4-8.2); TRIGLYCERIDES LEVEL 377 MG/DL (<150)
[2019-10-29 13:53] LABS: HEMOGLOBIN A1c 6.5 %
== END ==
LOC: M PLALAB 10:22
PROVIDERS: ATTEND Internal Medicine
DX: E78.00 Pure hypercholesterolemia, unspecified (principal); I10 Essential (primary) hypertension; R73.01 Impaired fasting glucose; Z79.01 Long term (current) use of anticoagulants

== ENCOUNTER → 2019-10-30 | Outpatient (REF) | payer MEDICARE, MEDICAID ==
[2019-10-30 15:09] LABS: MALB URINE SIEMENS 9.8 MG/L; MAU/CREAT RATIO 9.1 MCG/MG (0.0-30.0)
== END ==
LOC: M SFHCADAM 13:04
PROVIDERS: ATTEND Internal Medicine
DX: E78.00 Pure hypercholesterolemia, unspecified (principal); I10 Essential (primary) hypertension; R73.01 Impaired fasting glucose; Z79.01 Long term (current) use of anticoagulants
CPT/HCPCS: 82043; 85610; G0463

== ENCOUNTER → 2020-04-30 | Outpatient (CLI) | payer MEDICARE, MEDICAID ==
[2020-04-30 14:28] LABS: BASO # 0.1 10^3/uL (0.0-0.2); BASO % 0.6 % (0.0-1.0); EOS # 0.3 10^3/uL (0.0-0.5); EOS % 2.9 % (0.0-3.0); HEMATOCRIT 39.3 % (36.0-47.0); HEMOGLOBIN 12.4 g/dl (12.0-15.5); LYMPH # 1.9 10^3/uL (1.5-5.0); LYMPH % 20.3 % (24.0-44.0); MEAN CORPUSCULAR HEMOGLOBIN 29.2 pg (27.0-33.0); MEAN CORPUSCULAR HGB CONC 31.6 g/dl (32.0-36.5); MEAN CORPUSCULAR VOLUME 92.5 fl (80.0-96.0); MONO # 1.2 10^3/uL (0.0-0.8); MONO % 12.8 % (0.0-5.0); NEUTROPHILS # 5.8 10^3/uL (1.5-8.5); NEUTROPHILS % 62.7 % (36.0-66.0); PLATELET COUNT, AUTOMATED 294 10^3/uL (150-450); RED BLOOD COUNT 4.25 10^6/uL (4.00-5.40); WHITE BLOOD COUNT 9.3 10^3/uL (4.0-10.0)
[2020-04-30 15:15] LABS: ALBUMIN 3.7 GM/DL (3.2-5.2); BILIRUBIN,TOTAL 0.4 MG/DL (0.2-1.0); CALCIUM LEVEL 9.2 MG/DL (8.8-10.2); CHOLESTEROL RISK RATIO 3.526 (<5); CREATININE FOR GFR 1.03 MG/DL (0.55-1.30); POTASSIUM SERUM 4.8 MEQ/L (3.5-5.1); TOTAL 25(OH) VITAMIN D 17.6 NG/ML (30.0-100.0); TOTAL PROTEIN 7.5 GM/DL (6.4-8.2)
[2020-04-30 16:00] LABS: HEMOGLOBIN A1c 6.2 %
== END ==
LOC: M PLALAB 11:31
PROVIDERS: ATTEND Internal Medicine
DX: E78.00 Pure hypercholesterolemia, unspecified (principal); R73.01 Impaired fasting glucose; M85.80 Other specified disorders of bone density and structure, unspecified site; Z79.01 Long term (current) use of anticoagulants
CPT/HCPCS: 36415; 80053; 80061; 82306; 83036; 85025; G0463

== ENCOUNTER → 2020-10-25 | Outpatient (CLI) | payer MEDICARE, MEDICAID ==
[~2020-10-25] MED LIST changes: +D 50CAP2 PO; +DICL1GEL3 TOP; +LOTE1TAB PO; +MONT10TA10 PO; -MONT10TA4 PO; +QC A650T3 PO
== END ==
LOC: M LABSMTC 08:04
PROVIDERS: ATTEND Anesthesiology
DX: Z01.812 Encounter for preprocedural laboratory examination (principal); Z20.822 Contact with and (suspected) exposure to COVID-19

== ENCOUNTER 2020-10-30 08:43 | Day surgery (SDC) | payer MEDICARE, MEDICAID ==
[~2020-10-30] VITALS: Ht 157.5 cm; Wt 89.3 kg
[~2020-10-30 08:43] MED LIST changes: +DUOVISC (0.50ML VISCOAT/0.55ML PROVISC) OPHTH KIT As Ordered ONE; +OFLOXACIN 0.3 % (OCUFLOX) OPTH SOL 5ML OD ONE; +PHENYLEPHRINE 2.5% OPHTH SOL 2ML OD ONE; +POVIDONE-IODINE 5% OPHTH PREP SOL 30ML As Ordered ONE; +PROPARACAINE 0.5% OPHTH SOL 15ML OD ONE; +TROPICAMIDE 1% OPHTH SOLN 2ML OD ONE
[2020-10-30] MEDS ORDERED: MIDAZOLAM INJ 2MG/2ML VIAL (J2250 PER 1MG) As Ordered ONE (09:36)
[2020-10-30] MEDS ORDERED: fentaNYL 100 MCG/2 ML INJECTION (J3010) As Ordered ONE (09:36)
[2020-10-30] MEDS ORDERED: BSS IRR 500ML/OMIDRIA 4ML IRR BAG (OR ONLY) As Ordered ONE (10:11)
[2020-10-30 10:55] VITALS: BP 149/86
--- NOTE | 2020-10-31 08:45 | RO ---
OPERATIVE NOTE DATE OF OPERATION: 10/30/2020 PREOPERATIVE DIAGNOSIS: 1. Visually significant nuclear sclerotic cataract, right eye. POSTOPERATIVE DIAGNOSIS: 1. Visually significant nuclear sclerotic cataract, right eye. PROCEDURE: 1. Cataract extraction with use of phacoemulsification, and placement of intraocular lens, AU00T0, 21.5 D, right eye. SURGEON: Ricardo Fernandez DO ANESTHESIA: Local (Omidria with MAC) COMPLICATIONS: None POSTOPERATIVE CONDITION: Stable INDICATIONS FOR SURGERY: 1. Blurred vision affecting patient's activities of daily living. DESCRIPTION OF PROCEDURE: The patient was seen in the preoperative area and properly identified. The correct operative eye was identified and marked. The patient received topical anesthetic, antibiotics, and topical dilating drops. The patient was then transferred to the operating room. The correct side was re-identified and a time-out was performed. The eye was prepped and draped in a sterile fashion. The eyelids were isolated with Tegaderm tape and the lids were held open with an adjustable speculum. A 1.0mm paracentesis incision was made. Omidria was then injected into the anterior chamber. Viscoelastic was then injected into the anterior chamber through the paracentesis. Using a 2.4mm sharp-tipped keratome, the anterior chamber was entered via a temporal clear cornea incision. A continuous curvilinear capsulorrhexis was created with Utrata forceps. Hydrodissection was performed with BSS on a blunt cannula until the nucleus was able to rotate freely. The crystalline lens was phacoemulsified and aspirated. Irrigation/aspiration was used to remove the cortical material Cohesive viscoelastic was placed into the capsular bag to deepen it. The implant was placed into the capsular bag and allowed to unfold. Placement was confirmed by visualizing the anterior capsulorrhexis. Irrigation/aspiration was used to remove the viscoelastic. The clear corneal incision was hydrated with BSS on a blunt cannula. The lens was well positioned. Intracameral antibiotic was injected into the anterior chamber. The incisions were then tested for leaks and found to be negative. The eye was then palpated for appropriate pressure and adjusted accordingly with BSS. The eyelid speculum was then carefully removed. A shield was placed over the eye. The patient tolerated the procedure well and was discharge to the recovery unit in a stable condition. MAI
== END 2020-10-30 10:56 | disposition home or self-care (01) ==
LOC: M SDC 08:43
PROVIDERS: ATTEND Ophthalmology
DX: H25.11 Age-related nuclear cataract, right eye (principal); I10 Essential (primary) hypertension; E78.49 Other hyperlipidemia; J45.909 Unspecified asthma, uncomplicated; G43.909 Migraine, unspecified, not intractable, without status migrainosus; Z79.899 Other long term (current) drug therapy; Z79.51 Long term (current) use of inhaled steroids; Z87.891 Personal history of nicotine dependence; Z95.0 Presence of cardiac pacemaker; Z88.1 Allergy status to other antibiotic agents; Z88.0 Allergy status to penicillin; Z91.040 Latex allergy status; F41.9 Anxiety disorder, unspecified; F32.9 Major depressive disorder, single episode, unspecified
CPT/HCPCS: 66984; J1097; J2250; J3010; V2632

== ENCOUNTER → 2020-11-01 | Outpatient (CLI) | payer MEDICARE, MEDICAID ==
[~2020-11-01] MED LIST changes: -DUOVISC (0.50ML VISCOAT/0.55ML PROVISC) OPHTH KIT As Ordered ONE; -OFLOXACIN 0.3 % (OCUFLOX) OPTH SOL 5ML OD ONE; -PHENYLEPHRINE 2.5% OPHTH SOL 2ML OD ONE; -POVIDONE-IODINE 5% OPHTH PREP SOL 30ML As Ordered ONE; -PROPARACAINE 0.5% OPHTH SOL 15ML OD ONE; -TROPICAMIDE 1% OPHTH SOLN 2ML OD ONE
== END ==
LOC: M LABSMTC 08:01
PROVIDERS: ATTEND Anesthesiology
DX: Z01.812 Encounter for preprocedural laboratory examination (principal); Z20.828 Contact with and (suspected) exposure to other viral communicable diseases

== ENCOUNTER 2020-11-06 07:31 | Day surgery (SDC) | payer MEDICARE, MEDICAID ==
[~2020-11-06] VITALS: Ht 157.5 cm; Wt 94.3 kg
[~2020-11-06 07:31] MED LIST changes: +DUOVISC (0.50ML VISCOAT/0.55ML PROVISC) OPHTH KIT As Ordered ONE; +OFLOXACIN 0.3 % (OCUFLOX) OPTH SOL 5ML OS ONE; +PERCOCET 5MG/325MG TAB PO PRN; +PHENYLEPHRINE 2.5% OPHTH SOL 2ML OS ONE; +POVIDONE-IODINE 5% OPHTH PREP SOL 30ML As Ordered ONE; +PROPARACAINE 0.5% OPHTH SOL 15ML OS ONE; +TROPICAMIDE 1% OPHTH SOLN 2ML OS ONE
[2020-11-06] MEDS ORDERED: MIDAZOLAM INJ 2MG/2ML VIAL (J2250 PER 1MG) As Ordered ONE (08:24)
[2020-11-06] MEDS ORDERED: fentaNYL 100 MCG/2 ML INJECTION (J3010) As Ordered ONE (08:24)
[2020-11-06] MEDS ORDERED: BSS IRR 500ML/OMIDRIA 4ML IRR BAG (OR ONLY) As Ordered ONE (09:02)
[2020-11-06 10:40] VITALS: BP 147/67
--- NOTE | 2020-11-10 08:52 | RO ---
OPERATIVE NOTE DATE OF OPERATION: 11/06/2020 PREOPERATIVE DIAGNOSIS: 1. Visually significant nuclear sclerotic cataract, left eye. POSTOPERATIVE DIAGNOSIS: 1. Visually significant nuclear sclerotic cataract, left eye. PROCEDURE: 1. Cataract extraction with use of phacoemulsification, and placement of intraocular lens, AU00T0, 21.0 D, left eye. SURGEON: Ricardo Fernandez DO ANESTHESIA: Local (Omidria with MAC) COMPLICATIONS: None POSTOPERATIVE CONDITION: Stable INDICATIONS FOR SURGERY: 1. Blurred vision affecting patient's activities of daily living. DESCRIPTION OF PROCEDURE: The patient was seen in the preoperative area and properly identified. The correct operative eye was identified and marked. The patient received topical anesthetic, antibiotics, and topical dilating drops. The patient was then transferred to the operating room. The correct side was re-identified and a time-out was performed. The eye was prepped and draped in a sterile fashion. The eyelids were isolated with Tegaderm tape and the lids were held open with an adjustable speculum. A 1.0mm paracentesis incision was made. Omidria was then injected into the anterior chamber. Viscoelastic was then injected into the anterior chamber through the paracentesis. Using a 2.4mm sharp-tipped keratome, the anterior chamber was entered via a temporal clear cornea incision. A continuous curvilinear capsulorrhexis was created with Utrata forceps. Hydrodissection was performed with BSS on a blunt cannula until the nucleus was able to rotate freely. The crystalline lens was phacoemulsified and aspirated. Irrigation/aspiration was used to remove the cortical material Cohesive viscoelastic was placed into the capsular bag to deepen it. The implant was placed into the capsular bag and allowed to unfold. Placement was confirmed by visualizing the anterior capsulorrhexis. Irrigation/aspiration was used to remove the viscoelastic. The clear corneal incision was hydrated with BSS on a blunt cannula. The lens was well positioned. Intracameral antibiotic was injected into the anterior chamber. The incisions were then tested for leaks and found to be negative. The eye was then palpated for appropriate pressure and adjusted accordingly with BSS. The eyelid speculum was then carefully removed. A shield was placed over the eye. The patient tolerated the procedure well and was discharge to the recovery unit in a stable condition.
== END 2020-11-06 10:55 | disposition home or self-care (01) ==
LOC: M SDC 07:31
PROVIDERS: ATTEND Ophthalmology
DX: H25.12 Age-related nuclear cataract, left eye (principal); I10 Essential (primary) hypertension; E78.5 Hyperlipidemia, unspecified; Z95.0 Presence of cardiac pacemaker; Z79.01 Long term (current) use of anticoagulants; Z79.82 Long term (current) use of aspirin; K21.9 Gastro-esophageal reflux disease without esophagitis; G43.909 Migraine, unspecified, not intractable, without status migrainosus; F41.9 Anxiety disorder, unspecified; F32.9 Major depressive disorder, single episode, unspecified; Z88.1 Allergy status to other antibiotic agents; Z88.0 Allergy status to penicillin; Z91.040 Latex allergy status; Z87.891 Personal history of nicotine dependence
CPT/HCPCS: 66984; J1097; J2250; J3010; V2632

== ENCOUNTER → 2021-01-06 | Outpatient (REF) | payer MEDICARE, MEDICAID ==
[~2021-01-06] MED LIST changes: -DUOVISC (0.50ML VISCOAT/0.55ML PROVISC) OPHTH KIT As Ordered ONE; -OFLOXACIN 0.3 % (OCUFLOX) OPTH SOL 5ML OS ONE; -PERCOCET 5MG/325MG TAB PO PRN; -PHENYLEPHRINE 2.5% OPHTH SOL 2ML OS ONE; -POVIDONE-IODINE 5% OPHTH PREP SOL 30ML As Ordered ONE; -PROPARACAINE 0.5% OPHTH SOL 15ML OS ONE; -TROPICAMIDE 1% OPHTH SOLN 2ML OS ONE
[2021-01-06 15:26] LABS: HEMOGLOBIN A1c 6.2 %
[2021-01-06 15:37] LABS: ALBUMIN 3.7 GM/DL (3.2-5.2); ALT/SGPT 16 U/L (12-78); BILIRUBIN,TOTAL 0.4 MG/DL (0.2-1.0); BLOOD UREA NITROGEN 18 MG/DL (7-18); CALCIUM LEVEL 9.4 MG/DL (8.8-10.2); CARBON DIOXIDE LEVEL 31 MEQ/L (21-32); CHLORIDE LEVEL 103 MEQ/L (98-107); CHOLESTEROL LEVEL 165 MG/DL (<200); CHOLESTEROL RISK RATIO 3.586 (<5); CREATININE FOR GFR 0.92 MG/DL (0.55-1.30); GLOMERULAR FILTRATION RATE > 60.0 (>32); GLUCOSE, FASTING 106 MG/DL (70-100); HDL CHOLESTEROL 46 MG/DL (>40); LDL CHOLESTEROL 71 MG/DL (<100); NON-HDL-C 119 MG/DL; POTASSIUM SERUM 5.1 MEQ/L (3.5-5.1); SODIUM LEVEL 140 MEQ/L (136-145); TOTAL PROTEIN 7.6 GM/DL (6.4-8.2); TRIGLYCERIDES LEVEL 238 MG/DL (<150)
== END ==
LOC: M PLALAB 11:00
PROVIDERS: ATTEND Internal Medicine
DX: E78.00 Pure hypercholesterolemia, unspecified (principal); R73.01 Impaired fasting glucose

== ENCOUNTER 2021-02-05 13:45 | Emergency (ER) | payer MEDICARE, MEDICAID ==
[~2021-02-05] VITALS: Ht 157.5 cm; Wt 96.2 kg
[2021-02-05 13:46] VITALS: BP 160/80
[2021-02-05] MEDS ORDERED: THROMBIN SOLN 5,000 UNITS VIAL TOP ONE ×4 (14:20→17:50)
[2021-02-05 14:26] LABS: HEMATOCRIT 38.6 % (36.0-47.0); HEMOGLOBIN 12.2 g/dl (12.0-15.5); MEAN CORPUSCULAR HEMOGLOBIN 28.3 pg (27.0-33.0); MEAN CORPUSCULAR HGB CONC 31.6 g/dl (32.0-36.5); MEAN CORPUSCULAR VOLUME 89.6 fl (80.0-96.0); PLATELET COUNT, AUTOMATED 247 10^3/uL (150-450); RED BLOOD COUNT 4.31 10^6/uL (4.00-5.40); WHITE BLOOD COUNT 10.4 10^3/uL (4.0-10.0)
[2021-02-05 14:43] LABS: INR 1.66
[2021-02-05 14:54] LABS: ALBUMIN 3.6 GM/DL (3.2-5.2); ALT/SGPT 16 U/L (12-78); BILIRUBIN,TOTAL 0.4 MG/DL (0.2-1.0); BLOOD UREA NITROGEN 21 MG/DL (7-18); CALCIUM LEVEL 9.1 MG/DL (8.8-10.2); CARBON DIOXIDE LEVEL 30 MEQ/L (21-32); CHLORIDE LEVEL 103 MEQ/L (98-107); CREATININE FOR GFR 0.86 MG/DL (0.55-1.30); GLOMERULAR FILTRATION RATE > 60.0 (>32); GLUCOSE, FASTING 101 MG/DL (70-100); POTASSIUM SERUM 4.6 MEQ/L (3.5-5.1); SODIUM LEVEL 140 MEQ/L (136-145); TOTAL PROTEIN 7.5 GM/DL (6.4-8.2)
[2021-02-05] MEDS ORDERED: SILVER NITRATE APPLICATOR TOP ONE ×2 (17:45)
== END 2021-02-05 19:16 | disposition home or self-care (01) ==
LOC: M ED 13:45
DX: K13.79 Other lesions of oral mucosa (principal); K08.89 Other specified disorders of teeth and supporting structures; I10 Essential (primary) hypertension; I48.91 Unspecified atrial fibrillation; J44.9 Chronic obstructive pulmonary disease, unspecified; Z95.0 Presence of cardiac pacemaker; Z88.0 Allergy status to penicillin; Z88.1 Allergy status to other antibiotic agents; Z91.040 Latex allergy status; Z79.899 Other long term (current) drug therapy; Z79.01 Long term (current) use of anticoagulants; Z79.82 Long term (current) use of aspirin

== ENCOUNTER → 2021-07-08 | Outpatient (CLI) | payer MEDICARE, MEDICAID ==
--- NOTE | 2021-07-08 11:21 | REPVR ---
PROCEDURE INFORMATION: Exam: CT Lumbar Spine Without Contrast Exam date and time: 07/08/2021 10:41 AM Age: 80 years old Clinical indication: Pain; Lumbago with sciatica; Additional info: Lbp, cervicalgia, numbness of skin, pain RT leg, ANGEL TECHNIQUE: Imaging protocol: Computed tomography images of the lumbar spine without contrast. Radiation optimization: All CT scans at this facility use at least one of these dose optimization techniques: automated exposure control; mA and/or kV adjustment per patient size (includes targeted exams where dose is matched to clinical indication); or iterative reconstruction. COMPARISON: No relevant prior studies available. FINDINGS: Vertebrae: Osteopenia. No acute bony injury or malalignment. Discs/Spinal canal/Neural foramina: Degenerative change. Multilevel disc bulging and vacuum discs, with associated bilateral foraminal stenosis. Note that assessment of disc, spinal cord, and nerve root pathology is limited in the absence of intrathecal contrast. Kidneys and ureters: Poorly characterized renal nodular hypodense lesions. Intraperitoneal space: Retroperitoneal and pelvic surgical clips. Vasculature: Vascular calcification. Normal caliber of the abdominal aorta. Soft tissues: Unremarkable appearance of the paraspinous soft tissues. IMPRESSION: 1. Osteopenia and degenerative change. 2. Multilevel disc bulging and vacuum discs, with associated bilateral foraminal stenosis. COMMENTS: Consistent with the [employer]'s Incidental Findings Committee white paper (J Am Mona Radiol 2018): Any incidental renal lesion less than 1 cm or classified as too small to characterize, or any incidental cystic renal lesion characterized as simple-appearing, is likely benign. No follow-up imaging is recommended for these lesions per consensus recommendations based on imaging criteria. Electronically signed by: Yogi Laboy On 07/08/2021 11:20:38 AM
--- NOTE | 2021-07-08 11:24 | REPVR ---
PROCEDURE INFORMATION: Exam: CT Cervical Spine Without Contrast Exam date and time: 07/08/2021 10:41 AM Age: 80 years old Clinical indication: Pain; Cervicalgia; Additional info: Lbp, cervicalgia, numbness of skin, pain RT leg, ANGEL TECHNIQUE: Imaging protocol: Computed tomography images of the cervical spine without contrast. Radiation optimization: All CT scans at this facility use at least one of these dose optimization techniques: automated exposure control; mA and/or kV adjustment per patient size (includes targeted exams where dose is matched to clinical indication); or iterative reconstruction. COMPARISON: CT Spine,cervical w/o contrast 02/26/2019 10:53 AM FINDINGS: The examination performed is degraded by motion artifact. Tubes, catheters and devices: Pacemaker. Bones/joints: Stable 1 mm anterolisthesis of C7 on T1. No acute bony injury in the cervical spine. Discs/Spinal canal/Neural foramina: Degenerative change, of greatest severity at the C5-C6 level, with asymmetric right-sided foraminal stenosis. No focal cervical disc herniation. Note that assessment of disc, spinal cord, and nerve root pathology is limited in the absence of intrathecal contrast. Oropharynx: Tonsillar calcification. Trachea: Tracheal calcification. Lungs: Unremarkable apices as visualized. Soft tissues: Ligamentous calcification. IMPRESSION: Degenerative change, of greatest severity at the C5-C6 level, with asymmetric right-sided foraminal stenosis. Electronically signed by: Yogi Laboy On 07/08/2021 11:24:14 AM
== END ==
LOC: M RAD 10:27
PROVIDERS: ATTEND Physician Assistant Medical
DX: M54.50 Low back pain, unspecified (principal); M79.604 Pain in right leg; R20.2 Paresthesia of skin; M54.2 Cervicalgia; R51.9 Headache, unspecified

== ENCOUNTER → 2021-07-20 | Outpatient (CLI) | payer MEDICARE, MEDICAID ==
[2021-07-20 13:27] LABS: BASO # 0.1 10^3/uL (0.0-0.2); BASO % 0.5 % (0.0-1.0); EOS # 0.3 10^3/uL (0.0-0.5); HEMATOCRIT 40.3 % (36.0-47.0); LYMPH # 1.9 10^3/uL (1.5-5.0); LYMPH % 16.8 % (24.0-44.0); MEAN CORPUSCULAR HGB CONC 32.3 g/dl (32.0-36.5); MEAN CORPUSCULAR VOLUME 89.8 fl (80.0-96.0); MONO # 1.1 10^3/uL (0.0-0.8); MONO % 9.7 % (2.0-8.0); NEUTROPHILS # 7.7 10^3/uL (1.5-8.5); NEUTROPHILS % 69.1 % (36.0-66.0); PLATELET COUNT, AUTOMATED 267 10^3/uL (150-450); RED BLOOD COUNT 4.49 10^6/uL (4.00-5.40); WHITE BLOOD COUNT 11.2 10^3/uL (4.0-10.0)
[2021-07-20 14:05] LABS: ALBUMIN 3.7 GM/DL (3.2-5.2); ALT/SGPT 17 U/L (12-78); BILIRUBIN,TOTAL 0.5 MG/DL (0.2-1.0); BLOOD UREA NITROGEN 17 MG/DL (7-18); CALCIUM LEVEL 9.5 MG/DL (8.8-10.2); CARBON DIOXIDE LEVEL 30 MEQ/L (21-32); CHLORIDE LEVEL 100 MEQ/L (98-107); CHOLESTEROL LEVEL 179 MG/DL (<200); CHOLESTEROL RISK RATIO 4.162 (<5); CREATININE FOR GFR 0.95 MG/DL (0.55-1.30); GLOMERULAR FILTRATION RATE > 60.0 (>32); GLUCOSE, FASTING 110 MG/DL (70-100); HDL CHOLESTEROL 43 MG/DL (>40); LDL CHOLESTEROL 81 MG/DL (<100); NON-HDL-C 136 MG/DL; POTASSIUM SERUM 4.2 MEQ/L (3.5-5.1); SODIUM LEVEL 138 MEQ/L (136-145); TOTAL PROTEIN 7.7 GM/DL (6.4-8.2); TRIGLYCERIDES LEVEL 275 MG/DL (<150)
[2021-07-20 14:06] LABS: CREATININE, URINE 73.8 MG/DL; MAU/CREAT RATIO 224.9 MCG/MG (0.0-30.0)
== END ==
LOC: M PLALAB 10:14
PROVIDERS: ATTEND Internal Medicine
DX: E78.00 Pure hypercholesterolemia, unspecified (principal); R73.01 Impaired fasting glucose; Z79.01 Long term (current) use of anticoagulants

== ENCOUNTER → 2021-09-30 | Outpatient (REF) | payer MEDICARE ==
[~2021-09-30] MED LIST changes: -MONT10TA10 PO; +MONT10TA97 PO
== END ==
LOC: M SFHCPLAZ 13:14
PROVIDERS: ATTEND Physician Assistant
DX: R05.9 Cough, unspecified (principal)

== ENCOUNTER → 2021-09-30 | Outpatient (CLI) | payer MEDICARE | LOC: M PLAIMG 11:44 | PROVIDERS: ATTEND Physician Assistant | DX: I51.7 Cardiomegaly (principal); R05.9 Cough, unspecified ==

== ENCOUNTER 2021-12-07 10:53 | Emergency (ER) | payer MEDICARE, MEDICAID ==
[~2021-12-07] VITALS: Ht 157.5 cm; Wt 90.9 kg
[2021-12-07] MEDS ORDERED: IPRATROPIUM 0.5MG/ALBUTEROL 2.5MG INH SOL UD 3ML (DUONEB) NEB ONE (13:30)
[2021-12-07 13:34] LABS: BASO # 0.1 10^3/uL (0.0-0.2); BASO % 0.4 % (0.0-1.0); EOS % 0.1 % (0.0-3.0); HEMATOCRIT 40.9 % (36.0-47.0); HEMOGLOBIN 13.7 g/dl (12.0-15.5); LYMPH # 1.3 10^3/uL (1.5-5.0); LYMPH % 7.7 % (24.0-44.0); MEAN CORPUSCULAR HEMOGLOBIN 29.7 pg (27.0-33.0); MEAN CORPUSCULAR HGB CONC 33.5 g/dl (32.0-36.5); MEAN CORPUSCULAR VOLUME 88.7 fl (80.0-96.0); MONO % 10.5 % (2.0-8.0); NEUTROPHILS # 13.5 10^3/uL (1.5-8.5); NEUTROPHILS % 80.5 % (36.0-66.0); PLATELET COUNT, AUTOMATED 294 10^3/uL (150-450); RED BLOOD COUNT 4.61 10^6/uL (4.00-5.40); WHITE BLOOD COUNT 16.7 10^3/uL (4.0-10.0)
[2021-12-07 13:59] LABS: MONO # 1.8 10^3/uL (0.0-0.8)
[2021-12-07 14:03] LABS: CALCIUM LEVEL 9.2 MG/DL (8.8-10.2); CREATININE FOR GFR 1.37 MG/DL (0.55-1.30); GLOMERULAR FILTRATION RATE 39.4 (>32); POTASSIUM SERUM 5.7 MEQ/L (3.5-5.1)
[2021-12-07 14:11] LABS: CK-MB VALUE MASS < 1.0 NG/ML (<3.6); CPK CREATINE PHOSPHOKINASE 173 U/L (26-192); MB/CK RELATIVE INDEX 0.58 (< OR =4)
[2021-12-07 15:19] LABS: CK-MB VALUE MASS < 1.0 NG/ML (<3.6); CPK CREATINE PHOSPHOKINASE 60 U/L (26-192); MB/CK RELATIVE INDEX 1.67 (< OR =4)
[2021-12-07 15:25] LABS: CALCIUM LEVEL 9.2 MG/DL (8.8-10.2); CREATININE FOR GFR 1.32 MG/DL (0.55-1.30); GLOMERULAR FILTRATION RATE 41.1 (>32); POTASSIUM SERUM 4.5 MEQ/L (3.5-5.1)
[2021-12-07 16:44] VITALS: BP 142/77
== END 2021-12-07 16:50 | disposition home or self-care (01) ==
LOC: M ED 10:53
DX: J45.901 Unspecified asthma with (acute) exacerbation (principal); J06.9 Acute upper respiratory infection, unspecified; I10 Essential (primary) hypertension; I48.91 Unspecified atrial fibrillation; Z95.0 Presence of cardiac pacemaker; Z88.0 Allergy status to penicillin; Z91.040 Latex allergy status; Z79.01 Long term (current) use of anticoagulants

== ENCOUNTER → 2022-01-05 | Outpatient (CLI) | payer MEDICARE, MEDICAID | LOC: M RAD 11:24 | PROVIDERS: ATTEND Psychiatry & Neurology Neurology | DX: J45.30 Mild persistent asthma, uncomplicated (principal) ==

== ENCOUNTER → 2022-01-21 | Outpatient (CLI) | payer MEDICARE, MEDICAID ==
[2022-01-21 13:13] LABS: BASO # 0.1 10^3/uL (0.0-0.2); BASO % 0.8 % (0.0-1.0); EOS # 0.3 10^3/uL (0.0-0.5); EOS % 2.5 % (0.0-3.0); HEMATOCRIT 40.1 % (36.0-47.0); HEMOGLOBIN 13.2 g/dl (12.0-15.5); LYMPH # 1.9 10^3/uL (1.5-5.0); MEAN CORPUSCULAR HEMOGLOBIN 29.7 pg (27.0-33.0); MEAN CORPUSCULAR HGB CONC 32.9 g/dl (32.0-36.5); MEAN CORPUSCULAR VOLUME 90.3 fl (80.0-96.0); MONO # 1.3 10^3/uL (0.0-0.8); MONO % 11.3 % (2.0-8.0); NEUTROPHILS # 7.6 10^3/uL (1.5-8.5); NEUTROPHILS % 67.5 % (36.0-66.0); PLATELET COUNT, AUTOMATED 271 10^3/uL (150-450); RED BLOOD COUNT 4.44 10^6/uL (4.00-5.40); WHITE BLOOD COUNT 11.2 10^3/uL (4.0-10.0)
[2022-01-21 13:50] LABS: ALBUMIN 3.6 GM/DL (3.2-5.2); ALT/SGPT 18 U/L (12-78); BILIRUBIN,TOTAL 0.5 MG/DL (0.2-1.0); BLOOD UREA NITROGEN 16 MG/DL (7-18); CALCIUM LEVEL 9.8 MG/DL (8.8-10.2); CARBON DIOXIDE LEVEL 29 MEQ/L (21-32); CHLORIDE LEVEL 103 MEQ/L (98-107); CHOLESTEROL LEVEL 168 MG/DL (<200); CHOLESTEROL RISK RATIO 4.097 (<5); CREATININE FOR GFR 0.88 MG/DL (0.55-1.30); GLOMERULAR FILTRATION RATE > 60.0 (>32); GLUCOSE, FASTING 128 MG/DL (70-100); HDL CHOLESTEROL 41 MG/DL (>40); LDL CHOLESTEROL 76 MG/DL (<100); NON-HDL-C 127 MG/DL; POTASSIUM SERUM 4.3 MEQ/L (3.5-5.1); SODIUM LEVEL 141 MEQ/L (136-145); TOTAL PROTEIN 7.2 GM/DL (6.4-8.2); TRIGLYCERIDES LEVEL 253 MG/DL (<150)
[2022-01-21 14:03] LABS: TOTAL 25(OH) VITAMIN D 60.8 NG/ML (30.0-100.0)
[2022-01-21 14:31] LABS: HEMOGLOBIN A1c 6.4 %
== END ==
LOC: M PLALAB 11:22
PROVIDERS: ATTEND Internal Medicine
DX: I10 Essential (primary) hypertension (principal)
CPT/HCPCS: 36415; 80053; 80061; 82306; 83036; 83735; 85025; G0472

== ENCOUNTER 2022-07-07 20:26 | Inpatient (IN) | payer MEDICARE, MEDICAID ==
[~2022-07-07] VITALS: Ht 157.5 cm; Wt 93.8 kg
[2022-07-07] MEDS ORDERED: methylPREDNISolone 125MG 2ML VIAL IV ONE (20:50)
[2022-07-07 21:05] LABS: BASO % 0.2 % (0.0-1.0); HEMOGLOBIN 12.3 g/dl (12.0-15.5); LYMPH # 1.5 10^3/uL (1.5-5.0); LYMPH % 9.8 % (24.0-44.0); MEAN CORPUSCULAR HEMOGLOBIN 27.6 pg (27.0-33.0); MEAN CORPUSCULAR HGB CONC 32.4 g/dl (32.0-36.5); MEAN CORPUSCULAR VOLUME 85.2 fl (80.0-96.0); MONO # 1.5 10^3/uL (0.0-0.8); MONO % 9.8 % (2.0-8.0); NEUTROPHILS # 11.8 10^3/uL (1.5-8.5); NEUTROPHILS % 79.5 % (36.0-66.0); PLATELET COUNT, AUTOMATED 253 10^3/uL (150-450); RED BLOOD COUNT 4.46 10^6/uL (4.00-5.40); WHITE BLOOD COUNT 14.9 10^3/uL (4.0-10.0)
[2022-07-07 21:17] LABS: INR 1.96; PROTHROMBIN TIME 22.7 SECONDS (12.5-14.5)
[2022-07-07] MEDS: COMBIVENT RESPIMAT 100-20MCG INHALER 4GM INH SCH ×3 (21:25→22:07)
[2022-07-07 21:49] LABS: CK-MB VALUE MASS 2.7 NG/ML (<3.6); MB/CK RELATIVE INDEX 1.78 (< OR =4)
[2022-07-07 21:54] LABS: ALBUMIN 3.4 GM/DL (3.2-5.2); ALT/SGPT 21 U/L (12-78); BILIRUBIN,DIRECT < 0.1 MG/DL (0.0-0.2); BILIRUBIN,TOTAL 0.3 MG/DL (0.2-1.0); BLOOD UREA NITROGEN 18 MG/DL (7-18); CARBON DIOXIDE LEVEL 27 MEQ/L (21-32); CHLORIDE LEVEL 100 MEQ/L (98-107); CREATININE FOR GFR 0.84 MG/DL (0.55-1.30); GLOMERULAR FILTRATION RATE > 60.0 (>32); GLUCOSE, FASTING 150 MG/DL (70-100); NT-PRO BNP 1803 PG/ML (<450); POTASSIUM SERUM 4.3 MEQ/L (3.5-5.1); SODIUM LEVEL 138 MEQ/L (136-145); THYROID STIMULATING HORMONE 0.566 uIU/ML (0.358-3.740); TOTAL PROTEIN 7.1 GM/DL (6.4-8.2)
[2022-07-07] MEDS ORDERED: ISOVUE-370 76% 100ML VIAL As Ordered ONE (22:29)
[2022-07-07] MEDS ORDERED: METAL LOCK LOOP XX ONE (22:35)
[2022-07-08 01:08] VITALS: BP 170/76
[2022-07-08] MEDS ORDERED: FIORICET TAB PO ONE ×2 (01:20→07:55)
[2022-07-08] MEDS ORDERED: NS 1,000 ML IV ONE (02:00)
[2022-07-08] MEDS ORDERED: ACET650T3 PO (02:32)
[2022-07-08] MEDS ORDERED: ALBU2.5V10 INH (02:32)
[2022-07-08] MEDS ORDERED: HOME MED LIST COMPLETE! XX SCH (02:35)
[2022-07-08] MEDS ORDERED: NS 1,000 ML IV SCH (06:45)
[2022-07-08 07:30] VITALS: BP 174/102
[2022-07-08] MEDS ORDERED: METOCLOPRAMIDE INJ 10MG/2ML VIAL (J2765 PER 1) IV ONE (07:55)
[2022-07-08 08:00] VITALS: BP 174/102
[2022-07-08] MEDS: FLUTICASONE HFA 220 MCG 12 GM INHALER (FLOVENT) INH SCH ×2 (08:00→20:01)
[2022-07-08] MEDS ORDERED: ALBUTEROL 90 MCG/ACT 8GM HFA INHALER INH PRN (08:25)
[2022-07-08] MEDS ORDERED: PILL CUTTER 1 EACH XX PRN (08:35)
[2022-07-08] MEDS ORDERED: hydroCHLOROthiazide 12.5 MG CAPSULE PO SCH (09:00)
[2022-07-08] MEDS ORDERED: DIVA250T67 PO (09:00)
[2022-07-08] MEDS ORDERED: amLODIPine 5 MG TAB PO SCH (09:00)
[2022-07-08] MEDS: CIPROFLOXACIN 400 MG in IV 1 EA IV SCH ×2 (09:41→18:14)
[2022-07-08] MEDS: OMEPRAZOLE 20MG CAP PO SCH (09:42)
[2022-07-08] MEDS: ASPIRIN 81MG ENTERIC TABLET PO SCH (09:42)
[2022-07-08] MEDS: MONTELUKAST 10 MG TAB PO SCH (09:42)
[2022-07-08] MEDS: LORATADINE 10 MG TAB PO SCH (09:42)
[2022-07-08] MEDS: BENAZEPRIL 20 MG TAB PO SCH ×2 (09:44→18:16)
[2022-07-08] MEDS: methylPREDNISolone 40MG 1ML VIAL IV SCH ×2 (10:58→20:20)
[2022-07-08] MEDS: NS 1,000 ML IV SCH ×2 (12:25→20:21)
[2022-07-08 14:00] VITALS: BP 172/95
[2022-07-08] MEDS ORDERED: bisoproloL fumarate 5 MG TAB PO SCH (17:00)
[2022-07-08] MEDS ORDERED: VANCOMYCIN HCL 750 MG, VIAL MATE ADAPTER 1 EACH in NS 250 ML IV SCH (17:55)
[2022-07-08] MEDS: WARFARIN SOD 5MG TAB PO SCH (18:13)
[2022-07-08] MEDS: CitaloPRAM (CeleXA) 10 MG TABLET PO SCH (18:13)
[2022-07-08] MEDS: SIMVASTATIN 40 MG TAB PO SCH (18:13)
[2022-07-08] MEDS ORDERED: VANCOMYCIN HCL 1,000 MG, VIAL MATE ADAPTER 1 EACH in D5W 250 ML IV ONE (20:00)
[2022-07-08] MEDS: DIVALPROEX 250 MG TAB PO SCH (20:20)
[2022-07-08] MEDS ORDERED: VANCOMYCIN HCL 750 MG, VIAL MATE ADAPTER 1 EACH in D5W 250 ML IV ONE (21:00)
[2022-07-08 21:10] VITALS: BP 162/84
[2022-07-08] MEDS: **hydrALAZINE** 10 MG TAB PO SCH (23:26)
[2022-07-09] MEDS: NS 1,000 ML IV SCH ×2 (01:43→14:06)
[2022-07-09 05:40] VITALS: BP 176/98
[2022-07-09 06:15] LABS: HEMATOCRIT 37.2 % (36.0-47.0); HEMOGLOBIN 11.5 g/dl (12.0-15.5); MEAN CORPUSCULAR HEMOGLOBIN 27.3 pg (27.0-33.0); MEAN CORPUSCULAR HGB CONC 30.9 g/dl (32.0-36.5); MEAN CORPUSCULAR VOLUME 88.2 fl (80.0-96.0); PLATELET COUNT, AUTOMATED 249 10^3/uL (150-450); RED BLOOD COUNT 4.22 10^6/uL (4.00-5.40); WHITE BLOOD COUNT 18.6 10^3/uL (4.0-10.0)
[2022-07-09] MEDS: **hydrALAZINE** 10 MG TAB PO SCH (06:20)
[2022-07-09] MEDS: CIPROFLOXACIN 400 MG in IV 1 EA IV SCH (06:20)
[2022-07-09 06:34] LABS: INR 2.28; PROTHROMBIN TIME 25.5 SECONDS (12.5-14.5)
[2022-07-09 06:48] LABS: BLOOD UREA NITROGEN 20 MG/DL (7-18); CALCIUM LEVEL 8.8 MG/DL (8.8-10.2); CARBON DIOXIDE LEVEL 30 MEQ/L (21-32); CHLORIDE LEVEL 102 MEQ/L (98-107); CREATININE FOR GFR 0.76 MG/DL (0.55-1.30); GLOMERULAR FILTRATION RATE > 60.0 (>32); GLUCOSE, FASTING 150 MG/DL (70-100); POTASSIUM SERUM 4.4 MEQ/L (3.5-5.1); SODIUM LEVEL 138 MEQ/L (136-145)
[2022-07-09 07:46] LABS: VANCOMYCIN RANDOM 14.2 UG/ML
[2022-07-09] MEDS: FLUTICASONE HFA 220 MCG 12 GM INHALER (FLOVENT) INH SCH ×2 (07:48→21:49)
[2022-07-09 08:00] VITALS: BP 176/88
[2022-07-09] MEDS: VANCOMYCIN HCL 1,000 MG, VIAL MATE ADAPTER 1 EACH in D5W 250 ML IV SCH ×2 (09:24→21:10)
[2022-07-09] MEDS: methylPREDNISolone 40MG 1ML VIAL IV SCH ×2 (09:24→21:10)
[2022-07-09] MEDS: OMEPRAZOLE 20MG CAP PO SCH (10:59)
[2022-07-09] MEDS: LORATADINE 10 MG TAB PO SCH (10:59)
[2022-07-09] MEDS: MONTELUKAST 10 MG TAB PO SCH (11:00)
[2022-07-09] MEDS: ASPIRIN 81MG ENTERIC TABLET PO SCH (11:00)
[2022-07-09 12:00] VITALS: BP 174/92
[2022-07-09 12:05] LABS: C REACTIVE PROTEIN QUANTITATIV < 0.30 MG/DL (0.00-0.30)
[2022-07-09] MEDS: bisoproloL fumarate 10 MG TAB PO SCH ×2 (12:24→21:11)
[2022-07-09] MEDS: BENAZEPRIL 20 MG TAB PO SCH (12:25)
[2022-07-09 12:53] LABS: ERYTHROCYTE SEDIMENTATION RATE 7 mm/hr (0-30)
[2022-07-09 14:00] VITALS: BP 158/90
[2022-07-09 17:06] VITALS: BP 163/96
[2022-07-09 17:07] LABS: MYCOPLASMA PNEUMONIAE IgG 154 U/mL (0-99); MYCOPLASMA PNEUMONIAE IgM <770 U/mL (0-769)
[2022-07-09] MEDS: SIMVASTATIN 40 MG TAB PO SCH (17:08)
[2022-07-09] MEDS: WARFARIN SOD 5MG TAB PO SCH (17:08)
[2022-07-09] MEDS: CitaloPRAM (CeleXA) 10 MG TABLET PO SCH (17:09)
[2022-07-09] MEDS ORDERED: LEVALBUTEROL 1.25 MG/0.5 ML CONCENTRATE NEB INH PRN (18:45)
[2022-07-09 20:42] VITALS: BP 172/88
[2022-07-09] MEDS: DIVALPROEX 250 MG TAB PO SCH (21:10)
[2022-07-09] MEDS: ISOSORBIDE DIN. (ISORDIL) 20 MG TAB PO SCH (21:11)
[2022-07-09] MEDS: LEVALBUTEROL 1.25 MG/0.5 ML CONCENTRATE NEB INH SCH (21:52)
[2022-07-10] MEDS: LEVALBUTEROL 1.25 MG/0.5 ML CONCENTRATE NEB INH SCH ×6 (04:00→20:22)
[2022-07-10] MEDS: BENAZEPRIL 20 MG TAB PO SCH (05:44)
[2022-07-10] MEDS: bisoproloL fumarate 10 MG TAB PO SCH ×2 (05:45→21:34)
[2022-07-10] MEDS: ISOSORBIDE DIN. (ISORDIL) 20 MG TAB PO SCH ×4 (05:45→21:34)
[2022-07-10] MEDS: ACETAMINOPHEN 650MG ER TAB (TYLENOL ARTHRITIS) PO PRN (06:39)
[2022-07-10 07:34] VITALS: BP 170/90
[2022-07-10] MEDS: FLUTICASONE HFA 220 MCG 12 GM INHALER (FLOVENT) INH SCH ×2 (07:59→20:22)
[2022-07-10 08:25] LABS: INR 2.48; PROTHROMBIN TIME 27.3 SECONDS (12.5-14.5)
[2022-07-10] MEDS: ASPIRIN 81MG ENTERIC TABLET PO SCH (08:26)
[2022-07-10] MEDS: OMEPRAZOLE 20MG CAP PO SCH (08:26)
[2022-07-10] MEDS: methylPREDNISolone 40MG 1ML VIAL IV SCH (08:26)
[2022-07-10] MEDS: MONTELUKAST 10 MG TAB PO SCH (08:55)
[2022-07-10] MEDS: LORATADINE 10 MG TAB PO SCH (08:55)
[2022-07-10 09:32] VITALS: BP_SYST 152; BP_SYST 164; BP_DIAS 92; BP_DIAS 94
[2022-07-10 10:46] VITALS: BP 152/92
[2022-07-10 11:15] VITALS: BP 152/92
[2022-07-10 14:17] VITALS: BP 168/96
[2022-07-10] MEDS: methylPREDNISolone 125MG 2ML VIAL IV SCH ×2 (14:37→21:35)
[2022-07-10] MEDS: **hydrALAZINE HCL** 25 MG TAB PO SCH ×2 (14:37→21:34)
[2022-07-10] MEDS: NS 0.45% 1,000 ML IV SCH (14:38)
[2022-07-10 15:52] VITALS: BP 178/80
[2022-07-10] MEDS: SIMVASTATIN 40 MG TAB PO SCH (15:55)
[2022-07-10] MEDS: CitaloPRAM (CeleXA) 10 MG TABLET PO SCH (15:55)
[2022-07-10] MEDS: WARFARIN SOD 5MG TAB PO SCH (15:55)
[2022-07-10] MEDS: DIVALPROEX 250 MG TAB PO SCH (21:33)
[2022-07-10] MEDS: LACTOBACILLUS ACIDOPHILUS CAP (BACID) PO SCH (22:43)
[2022-07-11] MEDS: LEVALBUTEROL 1.25 MG/0.5 ML CONCENTRATE NEB INH SCH ×7 (01:04→23:17)
[2022-07-11] MEDS: NS 0.45% 1,000 ML IV SCH (01:12)
[2022-07-11] MEDS: **hydrALAZINE HCL** 25 MG TAB PO SCH ×2 (01:21→08:41)
[2022-07-11] MEDS: methylPREDNISolone 125MG 2ML VIAL IV SCH ×4 (03:38→20:06)
[2022-07-11] MEDS: ACETAMINOPHEN 650MG ER TAB (TYLENOL ARTHRITIS) PO PRN (03:39)
[2022-07-11 06:22] VITALS: BP 160/84
[2022-07-11 07:00] LABS: INR 2.38; PROTHROMBIN TIME 26.3 SECONDS (12.5-14.5)
[2022-07-11] MEDS: FLUTICASONE HFA 220 MCG 12 GM INHALER (FLOVENT) INH SCH ×2 (07:37→20:18)
[2022-07-11 08:39] VITALS: BP 158/88
[2022-07-11] MEDS: ASPIRIN 81MG ENTERIC TABLET PO SCH (08:41)
[2022-07-11] MEDS: OMEPRAZOLE 20MG CAP PO SCH (08:41)
[2022-07-11] MEDS: LACTOBACILLUS ACIDOPHILUS CAP (BACID) PO SCH ×2 (08:41→20:06)
[2022-07-11] MEDS: MONTELUKAST 10 MG TAB PO SCH (08:42)
[2022-07-11] MEDS: bisoproloL fumarate 10 MG TAB PO SCH ×2 (08:42→20:07)
[2022-07-11] MEDS: LORATADINE 10 MG TAB PO SCH (08:42)
[2022-07-11] MEDS: ISOSORBIDE DIN. (ISORDIL) 20 MG TAB PO SCH ×3 (08:48→20:07)
[2022-07-11 10:20] LABS: BASO # 0.1 10^3/uL (0.0-0.2); BASO % 0.3 % (0.0-1.0); HEMATOCRIT 39.9 % (36.0-47.0); HEMOGLOBIN 12.6 g/dl (12.0-15.5); LYMPH % 10.5 % (24.0-44.0); MEAN CORPUSCULAR HEMOGLOBIN 27.3 pg (27.0-33.0); MEAN CORPUSCULAR HGB CONC 31.6 g/dl (32.0-36.5); MEAN CORPUSCULAR VOLUME 86.6 fl (80.0-96.0); MONO # 1.1 10^3/uL (0.0-0.8); MONO % 5.9 % (2.0-8.0); NEUTROPHILS # 15.7 10^3/uL (1.5-8.5); NEUTROPHILS % 81.3 % (36.0-66.0); PLATELET COUNT, AUTOMATED 322 10^3/uL (150-450); RED BLOOD COUNT 4.61 10^6/uL (4.00-5.40); WHITE BLOOD COUNT 19.3 10^3/uL (4.0-10.0)
[2022-07-11 10:42] LABS: ERYTHROCYTE SEDIMENTATION RATE 5 mm/hr (0-30)
[2022-07-11 10:56] LABS: ALBUMIN 3.4 GM/DL (3.2-5.2); BILIRUBIN,TOTAL 0.3 MG/DL (0.2-1.0); C REACTIVE PROTEIN QUANTITATIV 0.3 MG/DL (0.00-0.30); CALCIUM LEVEL 8.9 MG/DL (8.8-10.2); CREATININE FOR GFR 1.1 MG/DL (0.55-1.30); GLOMERULAR FILTRATION RATE 50.7 (>32)
[2022-07-11] MEDS ORDERED: BENAZEPRIL 20 MG TAB PO ONE (11:00)
[2022-07-11 11:59] VITALS: BP 144/80
[2022-07-11 15:28] VITALS: BP 142/80
[2022-07-11] MEDS: CitaloPRAM (CeleXA) 10 MG TABLET PO SCH (17:20)
[2022-07-11] MEDS: WARFARIN SOD 5MG TAB PO SCH (17:20)
[2022-07-11] MEDS: SIMVASTATIN 40 MG TAB PO SCH (17:21)
[2022-07-11] MEDS: DIVALPROEX 250 MG TAB PO SCH (20:06)
[2022-07-11] MEDS: CARBAMIDE PEROXIDE 6.5% OTIC SOLN 15ML AD SCH (20:06)
[2022-07-11] MEDS ORDERED: LR 1,000 ML IV ONE (20:35)
[2022-07-11] MEDS: FLUTICASONE PROP 0.05% NASAL SPRAY 16 GM (FLONASE) NARES SCH (21:00)
[2022-07-11 22:00] VITALS: BP 138/90
[2022-07-12] MEDS: methylPREDNISolone 125MG 2ML VIAL IV SCH ×4 (03:15→21:45)
[2022-07-12] MEDS: LEVALBUTEROL 1.25 MG/0.5 ML CONCENTRATE NEB INH SCH ×5 (03:22→20:00)
[2022-07-12 06:00] VITALS: BP 140/70
[2022-07-12 06:02] LABS: INR 2.46; PROTHROMBIN TIME 27.1 SECONDS (12.5-14.5)
[2022-07-12] MEDS: FLUTICASONE HFA 220 MCG 12 GM INHALER (FLOVENT) INH SCH ×2 (07:39→20:54)
[2022-07-12 08:32] LABS: BASO % 0.2 % (0.0-1.0); HEMATOCRIT 36.6 % (36.0-47.0); HEMOGLOBIN 11.7 g/dl (12.0-15.5); LYMPH # 1.5 10^3/uL (1.5-5.0); LYMPH % 9.3 % (24.0-44.0); MEAN CORPUSCULAR HEMOGLOBIN 27.5 pg (27.0-33.0); MEAN CORPUSCULAR VOLUME 86.1 fl (80.0-96.0); MONO % 6.4 % (2.0-8.0); NEUTROPHILS # 12.9 10^3/uL (1.5-8.5); NEUTROPHILS % 81.6 % (36.0-66.0); PLATELET COUNT, AUTOMATED 275 10^3/uL (150-450); RED BLOOD COUNT 4.25 10^6/uL (4.00-5.40); WHITE BLOOD COUNT 15.9 10^3/uL (4.0-10.0)
[2022-07-12 08:39] LABS: ALBUMIN 3.1 GM/DL (3.2-5.2); BILIRUBIN,TOTAL 0.2 MG/DL (0.2-1.0); CALCIUM LEVEL 8.7 MG/DL (8.8-10.2); CREATININE FOR GFR 0.98 MG/DL (0.55-1.30); TOTAL PROTEIN 6.4 GM/DL (6.4-8.2)
[2022-07-12] MEDS: FLUTICASONE PROP 0.05% NASAL SPRAY 16 GM (FLONASE) NARES SCH ×2 (09:00→21:00)
[2022-07-12] MEDS: CIPRODEX OTIC SUSP 7.5ML AD SCH ×2 (09:00→21:46)
[2022-07-12] MEDS: cefTRIAXone SOD 2 GM in D5W MINI-BAG PLUS 50 ML IV SCH (09:33)
[2022-07-12] MEDS: NS 1,000 ML IV SCH ×2 (09:33→17:29)
[2022-07-12] MEDS: CARBAMIDE PEROXIDE 6.5% OTIC SOLN 15ML AD SCH ×2 (09:36→21:46)
[2022-07-12] MEDS: LORATADINE 10 MG TAB PO SCH (09:36)
[2022-07-12] MEDS: ASPIRIN 81MG ENTERIC TABLET PO SCH (09:36)
[2022-07-12] MEDS: LACTOBACILLUS ACIDOPHILUS CAP (BACID) PO SCH ×2 (09:36→21:47)
[2022-07-12] MEDS: OMEPRAZOLE 20MG CAP PO SCH (09:36)
[2022-07-12] MEDS: MONTELUKAST 10 MG TAB PO SCH (09:36)
[2022-07-12] MEDS: bisoproloL fumarate 10 MG TAB PO SCH ×2 (09:38→21:46)
[2022-07-12] MEDS: ISOSORBIDE DIN. (ISORDIL) 20 MG TAB PO SCH ×3 (09:43→21:53)
[2022-07-12] MEDS: BENAZEPRIL 20 MG TAB PO SCH (09:43)
[2022-07-12 12:00] VITALS: O2SAT 94
[2022-07-12 14:00] VITALS: BP 152/84
[2022-07-12] MEDS: ACETAMINOPHEN 650MG ER TAB (TYLENOL ARTHRITIS) PO PRN (15:52)
[2022-07-12] MEDS: WARFARIN SOD 5MG TAB PO SCH (15:53)
[2022-07-12] MEDS: CitaloPRAM (CeleXA) 10 MG TABLET PO SCH (15:53)
[2022-07-12] MEDS: SIMVASTATIN 40 MG TAB PO SCH (15:53)
[2022-07-12 21:10] VITALS: BP 161/83
[2022-07-12] MEDS: DIVALPROEX 250 MG TAB PO SCH (21:47)
[2022-07-13 00:51] VITALS: O2SAT 92
[2022-07-13] MEDS: LEVALBUTEROL 1.25 MG/0.5 ML CONCENTRATE NEB INH SCH ×6 (00:53→20:00)
[2022-07-13] MEDS: methylPREDNISolone 125MG 2ML VIAL IV SCH (03:12)
[2022-07-13] MEDS: NS 1,000 ML IV SCH (03:13)
[2022-07-13 04:40] VITALS: BP 160/86
[2022-07-13 06:39] LABS: BASO % 0.2 % (0.0-1.0); HEMATOCRIT 36.3 % (36.0-47.0); HEMOGLOBIN 11.7 g/dl (12.0-15.5); LYMPH # 1.2 10^3/uL (1.5-5.0); LYMPH % 8.4 % (24.0-44.0); MEAN CORPUSCULAR HEMOGLOBIN 27.5 pg (27.0-33.0); MEAN CORPUSCULAR HGB CONC 32.2 g/dl (32.0-36.5); MEAN CORPUSCULAR VOLUME 85.4 fl (80.0-96.0); MONO # 0.8 10^3/uL (0.0-0.8); MONO % 5.2 % (2.0-8.0); NEUTROPHILS # 12.4 10^3/uL (1.5-8.5); NEUTROPHILS % 83.7 % (36.0-66.0); PLATELET COUNT, AUTOMATED 294 10^3/uL (150-450); RED BLOOD COUNT 4.25 10^6/uL (4.00-5.40); WHITE BLOOD COUNT 14.8 10^3/uL (4.0-10.0)
[2022-07-13 07:00] LABS: INR 2.73; PROTHROMBIN TIME 29.3 SECONDS (12.5-14.5)
[2022-07-13 07:12] LABS: BLOOD UREA NITROGEN 17 MG/DL (7-18); CALCIUM LEVEL 8.3 MG/DL (8.8-10.2); CARBON DIOXIDE LEVEL 32 MEQ/L (21-32); CHLORIDE LEVEL 100 MEQ/L (98-107); CREATININE FOR GFR 0.81 MG/DL (0.55-1.30); GLOMERULAR FILTRATION RATE > 60.0 (>32); GLUCOSE, FASTING 168 MG/DL (70-100); POTASSIUM SERUM 4.1 MEQ/L (3.5-5.1); SODIUM LEVEL 140 MEQ/L (136-145)
[2022-07-13] MEDS: SYMBICORT 160/4.5MCG INHALER 6GM INH SCH ×2 (08:55→21:26)
[2022-07-13] MEDS: FLUTICASONE PROP 0.05% NASAL SPRAY 16 GM (FLONASE) NARES SCH ×2 (09:00→21:00)
[2022-07-13] MEDS: LACTOBACILLUS ACIDOPHILUS CAP (BACID) PO SCH ×2 (09:32→20:36)
[2022-07-13] MEDS: OMEPRAZOLE 20MG CAP PO SCH (09:32)
[2022-07-13] MEDS: cefTRIAXone SOD 2 GM in D5W MINI-BAG PLUS 50 ML IV SCH (09:32)
[2022-07-13] MEDS: BENAZEPRIL 20 MG TAB PO SCH (09:33)
[2022-07-13] MEDS: LORATADINE 10 MG TAB PO SCH (09:33)
[2022-07-13] MEDS: ACETAMINOPHEN 650MG ER TAB (TYLENOL ARTHRITIS) PO PRN (09:33)
[2022-07-13] MEDS: ASPIRIN 81MG ENTERIC TABLET PO SCH (09:33)
[2022-07-13] MEDS: CARBAMIDE PEROXIDE 6.5% OTIC SOLN 15ML AD SCH ×2 (09:34→20:36)
[2022-07-13] MEDS: bisoproloL fumarate 10 MG TAB PO SCH ×2 (09:34→20:38)
[2022-07-13] MEDS: CIPRODEX OTIC SUSP 7.5ML AD SCH ×2 (09:34→20:36)
[2022-07-13] MEDS: MONTELUKAST 10 MG TAB PO SCH (09:34)
[2022-07-13] MEDS: ISOSORBIDE DIN. (ISORDIL) 20 MG TAB PO SCH ×3 (09:34→20:37)
[2022-07-13 10:05] VITALS: O2SAT 95
[2022-07-13 11:16] VITALS: O2SAT 93
[2022-07-13] MEDS: methylPREDNISolone 40MG 1ML VIAL IV SCH ×2 (11:17→17:58)
[2022-07-13 14:00] VITALS: BP 126/81
[2022-07-13] MEDS: WARFARIN SOD 5MG TAB PO SCH (17:58)
[2022-07-13] MEDS: CitaloPRAM (CeleXA) 10 MG TABLET PO SCH (17:59)
[2022-07-13] MEDS: SIMVASTATIN 40 MG TAB PO SCH (17:59)
[2022-07-13] MEDS: DIVALPROEX 250 MG TAB PO SCH (20:35)
[2022-07-13 21:20] VITALS: BP 139/85
[2022-07-14] MEDS: LEVALBUTEROL 1.25 MG/0.5 ML CONCENTRATE NEB INH SCH ×4 (00:29→11:35)
[2022-07-14 01:47] VITALS: O2SAT 91
[2022-07-14] MEDS: methylPREDNISolone 40MG 1ML VIAL IV SCH ×2 (03:47→11:00)
[2022-07-14 06:17] LABS: BASO % 0.1 % (0.0-1.0); HEMATOCRIT 38.2 % (36.0-47.0); HEMOGLOBIN 12.3 g/dl (12.0-15.5); LYMPH # 1.3 10^3/uL (1.5-5.0); LYMPH % 8.7 % (24.0-44.0); MEAN CORPUSCULAR HEMOGLOBIN 27.5 pg (27.0-33.0); MEAN CORPUSCULAR HGB CONC 32.2 g/dl (32.0-36.5); MEAN CORPUSCULAR VOLUME 85.5 fl (80.0-96.0); MONO # 1.3 10^3/uL (0.0-0.8); MONO % 8.7 % (2.0-8.0); PLATELET COUNT, AUTOMATED 292 10^3/uL (150-450); RED BLOOD COUNT 4.47 10^6/uL (4.00-5.40)
[2022-07-14 06:32] LABS: INR 2.49; PROTHROMBIN TIME 27.3 SECONDS (12.5-14.5)
[2022-07-14 06:48] LABS: BLOOD UREA NITROGEN 21 MG/DL (9-23); CALCIUM LEVEL 8.3 MG/DL (8.3-10.6); CARBON DIOXIDE LEVEL 29 MMOL/L (20-31); CHLORIDE LEVEL 96 MMOL/L (98-107); GLOMERULAR FILTRATION RATE > 60.0 (>32); GLUCOSE, FASTING 163 MG/DL (74-106); POTASSIUM SERUM 4.2 MMOL/L (3.5-5.1); SODIUM LEVEL 137 MMOL/L (136-145)
[2022-07-14] MEDS: SYMBICORT 160/4.5MCG INHALER 6GM INH SCH (08:16)
[2022-07-14] MEDS: LORATADINE 10 MG TAB PO SCH (08:27)
[2022-07-14] MEDS: MONTELUKAST 10 MG TAB PO SCH (08:27)
[2022-07-14] MEDS: ASPIRIN 81MG ENTERIC TABLET PO SCH (08:27)
[2022-07-14] MEDS: LACTOBACILLUS ACIDOPHILUS CAP (BACID) PO SCH (08:27)
[2022-07-14 08:28] VITALS: BP 170/91
[2022-07-14] MEDS: bisoproloL fumarate 10 MG TAB PO SCH (08:28)
[2022-07-14] MEDS: BENAZEPRIL 20 MG TAB PO SCH (08:28)
[2022-07-14] MEDS: FUROSEMIDE 40MG/4ML VIAL (J1940) IV SCH ×2 (08:29→17:20)
[2022-07-14] MEDS: CIPRODEX OTIC SUSP 7.5ML AD SCH (08:29)
[2022-07-14] MEDS: OMEPRAZOLE 20MG CAP PO SCH (08:29)
[2022-07-14] MEDS: cefTRIAXone SOD 2 GM in D5W MINI-BAG PLUS 50 ML IV SCH (08:29)
[2022-07-14] MEDS: CARBAMIDE PEROXIDE 6.5% OTIC SOLN 15ML AD SCH (08:30)
[2022-07-14] MEDS: FLUTICASONE PROP 0.05% NASAL SPRAY 16 GM (FLONASE) NARES SCH (08:30)
[2022-07-14 10:30] VITALS: O2SAT 94
[2022-07-14] MEDS ORDERED: LASI20TA3 PO (12:14)
[2022-07-14] MEDS ORDERED: SYMB16INH INH (12:14)
[2022-07-14] MEDS ORDERED: RISATAB3 PO (12:14)
[2022-07-14] MEDS ORDERED: CIPR7.5D2 AD (12:14)
[2022-07-14] MEDS ORDERED: PRED10TA2 PO (12:14)
[2022-07-14] MEDS ORDERED: CEFD300C41 PO (12:14)
[2022-07-14 14:00] VITALS: BP 166/69
[2022-07-14] MEDS: WARFARIN SOD 5MG TAB PO SCH (17:19)
[2022-07-14] MEDS: SIMVASTATIN 40 MG TAB PO SCH (17:19)
[2022-07-14] MEDS: CitaloPRAM (CeleXA) 10 MG TABLET PO SCH (17:20)
[2022-07-15 16:09] LABS: CHLAMYDIA PNEUMONIAE IgG 1:32 (Neg:<1:16); CHLAMYDIA PNEUMONIAE IgM <1:10 (Neg:<1:10)
== END 2022-07-14 17:35 | disposition home or self-care (01) | DRG 202 ==
LOC: EDBD 20:26 → M ED 20:26 → M ED INP 23:53 → ENRESERV 07-08 00:10 → M MSPAV 07-08 00:57
PROVIDERS: ADMIT Family Medicine; ATTEND Internal Medicine Nephrology
PROC: B246ZZZ Ultrasonography of Right and Left Heart (ICD-10-PCS; principal; 2022-07-10)
DX: J45.901 Unspecified asthma with (acute) exacerbation (principal); J12.1 Respiratory syncytial virus pneumonia; J96.01 Acute respiratory failure with hypoxia; E87.20 Acidosis, unspecified; Z79.2 Long term (current) use of antibiotics; I48.91 Unspecified atrial fibrillation; Z79.01 Long term (current) use of anticoagulants; F41.9 Anxiety disorder, unspecified; E78.00 Pure hypercholesterolemia, unspecified; M85.88 Other specified disorders of bone density and structure, other site; K21.9 Gastro-esophageal reflux disease without esophagitis; G43.909 Migraine, unspecified, not intractable, without status migrainosus; I10 Essential (primary) hypertension; E55.9 Vitamin D deficiency, unspecified; Z90.79 Acquired absence of other genital organ(s); Z95.0 Presence of cardiac pacemaker; Z98.41 Cataract extraction status, right eye; Z98.42 Cataract extraction status, left eye; Z20.822 Contact with and (suspected) exposure to COVID-19; Z79.82 Long term (current) use of aspirin; Z79.899 Other long term (current) drug therapy; Z88.1 Allergy status to other antibiotic agents; Z91.040 Latex allergy status; H66.92 Otitis media, unspecified, left ear; D72.829 Elevated white blood cell count, unspecified; I16.0 Hypertensive urgency; G47.33 Obstructive sleep apnea (adult) (pediatric); H61.22 Impacted cerumen, left ear; I49.5 Sick sinus syndrome; I27.20 Pulmonary hypertension, unspecified; I34.0 Nonrheumatic mitral (valve) insufficiency

== ENCOUNTER 2022-08-13 12:20 | Emergency (ER) | payer MEDICARE, MEDICAID ==
[~2022-08-13] VITALS: Ht 157.5 cm; Wt 92.7 kg
[~2022-08-13 12:20] MED LIST changes: +ACET650T3 PO; +ALBU2.5V10 INH; +CEFD300C41 PO; +CIPR7.5D2 AD; +DIVA250T67 PO; +LASI20TA3 PO; +PRED10TA2 PO; +RISATAB3 PO; +SYMB16INH INH
[2022-08-13 13:44] LABS: INR 3.22; PROTHROMBIN TIME 33.4 SECONDS (12.5-14.5)
[2022-08-13 14:10] VITALS: BP 150/74
== END 2022-08-13 14:30 | disposition home or self-care (01) ==
LOC: M ED 12:20
DX: S80.02XA Contusion of left knee, initial encounter (principal); S80.12XA Contusion of left lower leg, initial encounter; W01.0XXA Fall on same level from slipping, tripping and stumbling without subsequent striking against object, initial encounter; Y92.481 Parking lot as the place of occurrence of the external cause; I10 Essential (primary) hypertension; E78.5 Hyperlipidemia, unspecified; J45.909 Unspecified asthma, uncomplicated; K21.9 Gastro-esophageal reflux disease without esophagitis; Z85.41 Personal history of malignant neoplasm of cervix uteri; Z79.899 Other long term (current) drug therapy; Z79.01 Long term (current) use of anticoagulants; Z79.51 Long term (current) use of inhaled steroids; Z79.82 Long term (current) use of aspirin; Z88.0 Allergy status to penicillin; Z88.1 Allergy status to other antibiotic agents; Z91.040 Latex allergy status

== ENCOUNTER 2022-08-16 12:57 | Emergency (ER) | payer MEDICARE, MEDICAID ==
[~2022-08-16] VITALS: Ht 157.5 cm; Wt 90.9 kg
[2022-08-16] MEDS ORDERED: traMADol 50 MG TAB PO ONE ×2 (17:40→20:05)
[2022-08-16 18:09] LABS: BASO # 0.1 10^3/uL (0.0-0.2); BASO % 0.5 % (0.0-1.0); EOS # 0.2 10^3/uL (0.0-0.5); EOS % 1.1 % (0.0-3.0); HEMATOCRIT 32.8 % (36.0-47.0); HEMOGLOBIN 10.2 g/dl (12.0-15.5); LYMPH # 2.2 10^3/uL (1.5-5.0); LYMPH % 15.3 % (24.0-44.0); MEAN CORPUSCULAR HEMOGLOBIN 27.8 pg (27.0-33.0); MEAN CORPUSCULAR HGB CONC 31.1 g/dl (32.0-36.5); MEAN CORPUSCULAR VOLUME 89.4 fl (80.0-96.0); MONO % 14.2 % (2.0-8.0); NEUTROPHILS # 9.7 10^3/uL (1.5-8.5); NEUTROPHILS % 67.7 % (36.0-66.0); PLATELET COUNT, AUTOMATED 293 10^3/uL (150-450); RED BLOOD COUNT 3.67 10^6/uL (4.00-5.40); WHITE BLOOD COUNT 14.3 10^3/uL (4.0-10.0)
[2022-08-16 18:35] LABS: ERYTHROCYTE SEDIMENTATION RATE 54 mm/hr (0-30)
[2022-08-16 18:49] LABS: INR 2.06; PROTHROMBIN TIME 23.6 SECONDS (12.5-14.5)
[2022-08-16 18:50] LABS: PARTIAL THROMBOPLASTIN TIME 46.5 SECONDS (24.8-34.2)
[2022-08-16] MEDS ORDERED: CEPHALEXIN 500 MG CAP PO ONE (20:05)
[2022-08-16] MEDS ORDERED: CEPH500C PO (20:07)
[2022-08-16] MEDS ORDERED: TRAM50TA2 PO (20:07)
[2022-08-16 20:16] VITALS: BP 140/77
== END 2022-08-16 20:24 | disposition home or self-care (01) ==
LOC: M ED 12:57
DX: S80.12XA Contusion of left lower leg, initial encounter (principal); S80.222A Blister (nonthermal), left knee, initial encounter; M79.89 Other specified soft tissue disorders; W01.0XXA Fall on same level from slipping, tripping and stumbling without subsequent striking against object, initial encounter; Y92.481 Parking lot as the place of occurrence of the external cause; I10 Essential (primary) hypertension; K21.9 Gastro-esophageal reflux disease without esophagitis; J45.909 Unspecified asthma, uncomplicated; I67.1 Cerebral aneurysm, nonruptured; Z85.41 Personal history of malignant neoplasm of cervix uteri; Z86.73 Personal history of transient ischemic attack (TIA), and cerebral infarction without residual deficits; Z79.899 Other long term (current) drug therapy; Z79.01 Long term (current) use of anticoagulants; Z79.51 Long term (current) use of inhaled steroids; Z79.82 Long term (current) use of aspirin; Z88.0 Allergy status to penicillin; Z88.1 Allergy status to other antibiotic agents; Z91.048 Other nonmedicinal substance allergy status

== ENCOUNTER 2022-08-20 15:55 | Inpatient (IN) | payer MEDICARE, MEDICAID ==
[~2022-08-20] VITALS: Ht 157.5 cm; Wt 90.9 kg
[~2022-08-20 15:55] MED LIST changes: +CEPH500C PO; +TRAM50TA2 PO
[2022-08-20 16:53] LABS: HEMATOCRIT 27.2 % (36.0-47.0); HEMOGLOBIN 8.7 g/dl (12.0-15.5); MEAN CORPUSCULAR VOLUME 90.7 fl (80.0-96.0); PLATELET COUNT, AUTOMATED 322 10^3/uL (150-450); WHITE BLOOD COUNT 12.6 10^3/uL (4.0-10.0)
[2022-08-20 17:06] LABS: INR 2.03; PROTHROMBIN TIME 23.3 SECONDS (12.5-14.5)
[2022-08-20 17:19] LABS: CALCIUM LEVEL 8.5 MG/DL (8.3-10.6); CREATININE FOR GFR 1.04 MG/DL (0.55-1.30); GLOMERULAR FILTRATION RATE 54.1 (>32); POTASSIUM SERUM 4.7 MMOL/L (3.5-5.1)
[2022-08-20] MEDS ORDERED: CEPH500C PO (18:37)
[2022-08-20] MEDS ORDERED: TRAM50TA2 PO (18:37)
[2022-08-20] MEDS ORDERED: FLUT22IN PO (18:37)
[2022-08-20] MEDS ORDERED: HOME MED LIST COMPLETE! XX SCH (18:40)
[2022-08-20] MEDS ORDERED: ISOVUE-370 76% 100ML VIAL As Ordered ONE ×2 (18:43→18:51)
[2022-08-20] MEDS ORDERED: PHYTONADIONE INJection 10 MG in NS 50 ML IV ONE (18:45)
[2022-08-20] MEDS ORDERED: NS 400 ML IV ONE (18:45)
[2022-08-20 18:47] LABS: RSV AMPLIFICATION NEGATIVE (NEGATIVE)
[2022-08-20] MEDS ORDERED: ALBUTEROL SULFATE 2.5MG/0.5ML INH NEB SOLN INH PRN (19:00)
[2022-08-20] MEDS ORDERED: MORPHINE 4 MG/ML 1ML VIAL IV PRN (19:05)
[2022-08-20] MEDS ORDERED: oxyCODONE 5MG TAB PO PRN (19:05)
[2022-08-20] MEDS ORDERED: SENNA 8.6 MG TAB (SENOKOT) PO PRN (19:05)
[2022-08-20] MEDS: ACETAMINOPHEN 500 MG TAB PO SCH (19:25)
[2022-08-20] MEDS ORDERED: LIDOCAINE 5% (LIDODERM) PATCH TD ONE (19:30)
[2022-08-20] MEDS ORDERED: NS 600 ML IV ONE (19:45)
[2022-08-20] MEDS ORDERED: bisoproloL fumarate 5 MG TAB PO SCH (21:00)
[2022-08-20] MEDS: FLUTICASONE HFA 220 MCG 12 GM INHALER (FLOVENT) INH SCH (22:05)
[2022-08-20] MEDS: CEPHALEXIN 500 MG CAP PO SCH (22:23)
[2022-08-20] MEDS: SIMVASTATIN 40 MG TAB PO SCH (22:23)
[2022-08-20] MEDS: DIVALPROEX 250MG TAB PO SCH (22:24)
[2022-08-20] MEDS: DICLOFENAC EPOLAMINE 1.3% PATCH TOP SCH (22:39)
[2022-08-21] VITALS (11 sets, daily range): BP systolic 113–148; BP diastolic 55–66
[2022-08-21] MEDS: ACETAMINOPHEN 500 MG TAB PO SCH ×4 (00:18→17:34)
[2022-08-21] MEDS: FLUTICASONE HFA 220 MCG 12 GM INHALER (FLOVENT) INH SCH ×2 (08:00→19:33)
[2022-08-21 09:21] LABS: HEMATOCRIT 29.5 % (36.0-47.0); HEMOGLOBIN 9.2 g/dl (12.0-15.5); MEAN CORPUSCULAR HEMOGLOBIN 29.5 pg (27.0-33.0); MEAN CORPUSCULAR HGB CONC 31.2 g/dl (32.0-36.5); MEAN CORPUSCULAR VOLUME 94.6 fl (80.0-96.0); PLATELET COUNT, AUTOMATED 300 10^3/uL (150-450); RED BLOOD COUNT 3.12 10^6/uL (4.00-5.40); WHITE BLOOD COUNT 9.9 10^3/uL (4.0-10.0)
[2022-08-21] MEDS: MONTELUKAST 10 MG TAB PO SCH (09:42)
[2022-08-21] MEDS: CEPHALEXIN 500 MG CAP PO SCH ×4 (09:42→21:19)
[2022-08-21] MEDS: OMEPRAZOLE 20MG CAP PO SCH (09:42)
[2022-08-21] MEDS: LORATADINE 10 MG TAB PO SCH (09:42)
[2022-08-21] MEDS: MIRALAX *UNIT DOSE* 17GM PACKET PO SCH (09:43)
[2022-08-21] MEDS: oxyCODONE 5MG TAB PO PRN ×2 (09:43→21:19)
[2022-08-21 09:44] LABS: ALBUMIN 2.5 G/DL (3.2-5.2); ALKALINE PHOSPHATASE 69 U/L (46-116); ALT/SGPT 10 U/L (7.0-40); AST/SGOT 15 U/L (<34); BLOOD UREA NITROGEN 24 MG/DL (9-23); CALCIUM LEVEL 8.6 MG/DL (8.3-10.6); CARBON DIOXIDE LEVEL 27 MMOL/L (20-31); CHLORIDE LEVEL 101 MMOL/L (98-107); CREATININE FOR GFR 0.84 MG/DL (0.55-1.30); GLOMERULAR FILTRATION RATE > 60.0 (>32); GLUCOSE, FASTING 111 MG/DL (74-106); POTASSIUM SERUM 4.6 MMOL/L (3.5-5.1); SODIUM LEVEL 136 MMOL/L (136-145); TOTAL PROTEIN 5.9 G/DL (5.7-8.2)
[2022-08-21 10:03] LABS: INR 1.24; PROTHROMBIN TIME 15.9 SECONDS (12.5-14.5)
[2022-08-21] MEDS: DICLOFENAC EPOLAMINE 1.3% PATCH TOP SCH ×2 (10:38→22:10)
[2022-08-21 18:08] LABS: FERRITIN 182.7 NG/ML (7.3-270.7)
[2022-08-21 18:11] LABS: FOLATE 17.14 NG/ML (>5.4)
[2022-08-21] MEDS: SIMVASTATIN 40 MG TAB PO SCH (21:19)
[2022-08-21] MEDS: bisoproloL fumarate 5 MG TAB PO SCH (21:26)
[2022-08-21] MEDS: LIDOCAINE 5% (LIDODERM) PATCH TD SCH (21:27)
[2022-08-21] MEDS: DIVALPROEX 250MG TAB PO SCH (22:09)
[2022-08-22] MEDS: ACETAMINOPHEN 500 MG TAB PO SCH ×4 (00:43→18:10)
[2022-08-22 06:00] VITALS: BP 137/74
[2022-08-22 06:36] LABS: BASO # 0.1 10^3/uL (0.0-0.2); BASO % 0.7 % (0.0-1.0); EOS # 0.3 10^3/uL (0.0-0.5); EOS % 2.6 % (0.0-3.0); HEMATOCRIT 26.3 % (36.0-47.0); HEMOGLOBIN 8.3 g/dl (12.0-15.5); LYMPH # 1.7 10^3/uL (1.5-5.0); LYMPH % 16.6 % (24.0-44.0); MEAN CORPUSCULAR HEMOGLOBIN 28.5 pg (27.0-33.0); MEAN CORPUSCULAR HGB CONC 31.6 g/dl (32.0-36.5); MEAN CORPUSCULAR VOLUME 90.4 fl (80.0-96.0); MONO # 1.3 10^3/uL (0.0-0.8); MONO % 13.5 % (2.0-8.0); NEUTROPHILS # 6.5 10^3/uL (1.5-8.5); NEUTROPHILS % 65.7 % (36.0-66.0); PLATELET COUNT, AUTOMATED 332 10^3/uL (150-450); RED BLOOD COUNT 2.91 10^6/uL (4.00-5.40); WHITE BLOOD COUNT 9.9 10^3/uL (4.0-10.0)
[2022-08-22 06:45] LABS: INR 1.18; PROTHROMBIN TIME 15.3 SECONDS (12.5-14.5)
[2022-08-22 07:03] LABS: MAGNESIUM LEVEL 1.8 MG/DL (1.8-2.4)
[2022-08-22 07:15] LABS: BLOOD UREA NITROGEN 21 MG/DL (9-23); CALCIUM LEVEL 8.4 MG/DL (8.3-10.6); CARBON DIOXIDE LEVEL 29 MMOL/L (20-31); CHLORIDE LEVEL 102 MMOL/L (98-107); CREATININE FOR GFR 0.87 MG/DL (0.55-1.30); GLOMERULAR FILTRATION RATE > 60.0 (>32); GLUCOSE, FASTING 83 MG/DL (74-106); PHOSPHORUS LEVEL 3.8 MG/DL (2.4-5.1); POTASSIUM SERUM 4.5 MMOL/L (3.5-5.1); SODIUM LEVEL 138 MMOL/L (136-145)
[2022-08-22] MEDS: FLUTICASONE HFA 220 MCG 12 GM INHALER (FLOVENT) INH SCH ×2 (07:29→20:09)
[2022-08-22] MEDS: MIRALAX *UNIT DOSE* 17GM PACKET PO SCH (09:26)
[2022-08-22] MEDS: LORATADINE 10 MG TAB PO SCH (09:26)
[2022-08-22] MEDS: SENOKOT S TAB PO SCH ×2 (09:26→20:57)
[2022-08-22] MEDS: MONTELUKAST 10 MG TAB PO SCH (09:26)
[2022-08-22] MEDS: CEPHALEXIN 500 MG CAP PO SCH (09:26)
[2022-08-22] MEDS: OMEPRAZOLE 20MG CAP PO SCH (09:26)
[2022-08-22] MEDS: oxyCODONE 5MG TAB PO PRN (09:27)
[2022-08-22] MEDS: DICLOFENAC EPOLAMINE 1.3% PATCH TOP SCH ×2 (09:34→20:58)
[2022-08-22 10:00] VITALS: BP 140/69
[2022-08-22] MEDS ORDERED: IRON SUCROSE 200 MG in NS 100 ML IV ONE (13:00)
[2022-08-22 14:00] VITALS: BP 135/64
[2022-08-22] MEDS: ceFAZolin SOD 2 GM in IV 1 EA IV SCH ×2 (14:27→21:09)
[2022-08-22 18:00] VITALS: BP 135/66
[2022-08-22] MEDS: LIDOCAINE 5% (LIDODERM) PATCH TD SCH (20:56)
[2022-08-22] MEDS: DIVALPROEX 250MG TAB PO SCH (20:57)
[2022-08-22] MEDS: SIMVASTATIN 40 MG TAB PO SCH (20:58)
[2022-08-22] MEDS: bisoproloL fumarate 5 MG TAB PO SCH (21:03)
[2022-08-22 22:00] VITALS: BP 138/66
[2022-08-23 02:00] VITALS: BP 143/70
[2022-08-23 06:00] VITALS: BP 147/73
[2022-08-23 06:12] LABS: BASO # 0.1 10^3/uL (0.0-0.2); BASO % 0.5 % (0.0-1.0); EOS # 0.2 10^3/uL (0.0-0.5); EOS % 1.4 % (0.0-3.0); HEMATOCRIT 27.1 % (36.0-47.0); HEMOGLOBIN 8.6 g/dl (12.0-15.5); LYMPH # 1.1 10^3/uL (1.5-5.0); LYMPH % 8.6 % (24.0-44.0); MEAN CORPUSCULAR HEMOGLOBIN 28.4 pg (27.0-33.0); MEAN CORPUSCULAR HGB CONC 31.7 g/dl (32.0-36.5); MEAN CORPUSCULAR VOLUME 89.4 fl (80.0-96.0); MONO # 1.5 10^3/uL (0.0-0.8); MONO % 11.4 % (2.0-8.0); NEUTROPHILS # 9.9 10^3/uL (1.5-8.5); PLATELET COUNT, AUTOMATED 352 10^3/uL (150-450); RED BLOOD COUNT 3.03 10^6/uL (4.00-5.40); WHITE BLOOD COUNT 12.9 10^3/uL (4.0-10.0)
[2022-08-23] MEDS: ceFAZolin SOD 2 GM in IV 1 EA IV SCH ×3 (06:15→23:27)
[2022-08-23] MEDS: ACETAMINOPHEN 500 MG TAB PO SCH ×5 (06:15→23:29)
[2022-08-23 06:25] LABS: INR 1.14; PROTHROMBIN TIME 14.8 SECONDS (12.5-14.5)
[2022-08-23 06:32] LABS: MAGNESIUM LEVEL 1.6 MG/DL (1.8-2.4)
[2022-08-23 06:34] LABS: BLOOD UREA NITROGEN 14 MG/DL (9-23); CALCIUM LEVEL 8.5 MG/DL (8.3-10.6); CARBON DIOXIDE LEVEL 23 MMOL/L (20-31); CHLORIDE LEVEL 104 MMOL/L (98-107); CREATININE FOR GFR 0.75 MG/DL (0.55-1.30); GLOMERULAR FILTRATION RATE > 60.0 (>32); GLUCOSE, FASTING 122 MG/DL (74-106); PHOSPHORUS LEVEL 3.3 MG/DL (2.4-5.1); POTASSIUM SERUM 4.5 MMOL/L (3.5-5.1); SODIUM LEVEL 139 MMOL/L (136-145)
[2022-08-23] MEDS: MAG SULF 1GM/100ML (MAG RUN) 1 GM in IV 1 EA IV SCH ×2 (07:08→08:22)
[2022-08-23] MEDS: FLUTICASONE HFA 220 MCG 12 GM INHALER (FLOVENT) INH SCH ×2 (07:47→19:07)
[2022-08-23] MEDS: OMEPRAZOLE 20MG CAP PO SCH (08:20)
[2022-08-23] MEDS: MONTELUKAST 10 MG TAB PO SCH (08:20)
[2022-08-23] MEDS: FERROUS GLUCONATE 324 MG TAB PO SCH (08:20)
[2022-08-23] MEDS: MIRALAX *UNIT DOSE* 17GM PACKET PO SCH (08:20)
[2022-08-23] MEDS: LORATADINE 10 MG TAB PO SCH (08:20)
[2022-08-23] MEDS: SENOKOT S TAB PO SCH ×2 (08:20→23:26)
[2022-08-23] MEDS: DICLOFENAC EPOLAMINE 1.3% PATCH TOP SCH ×2 (08:22→23:28)
[2022-08-23] MEDS: BENAZEPRIL 20 MG TAB PO SCH (11:21)
[2022-08-23 11:32] VITALS: BP 152/63
[2022-08-23 14:05] VITALS: BP 130/64
[2022-08-23 20:00] VITALS: BP 134/65
[2022-08-23] MEDS: DIVALPROEX 250MG TAB PO SCH (23:26)
[2022-08-23] MEDS: SIMVASTATIN 40 MG TAB PO SCH (23:27)
[2022-08-23] MEDS: LIDOCAINE 5% (LIDODERM) PATCH TD SCH (23:28)
[2022-08-23] MEDS: bisoproloL fumarate 5 MG TAB PO SCH (23:29)
[2022-08-24 02:08] VITALS: BP 114/81
[2022-08-24] MEDS: ceFAZolin SOD 2 GM in IV 1 EA IV SCH ×3 (05:55→23:42)
[2022-08-24] MEDS: ACETAMINOPHEN 500 MG TAB PO SCH ×4 (05:56→23:42)
[2022-08-24 06:00] VITALS: BP 121/77
[2022-08-24 07:21] LABS: BASO # 0.1 10^3/uL (0.0-0.2); BASO % 0.4 % (0.0-1.0); EOS # 0.3 10^3/uL (0.0-0.5); EOS % 2.4 % (0.0-3.0); HEMOGLOBIN 8.3 g/dl (12.0-15.5); LYMPH # 1.2 10^3/uL (1.5-5.0); LYMPH % 10.4 % (24.0-44.0); MEAN CORPUSCULAR HEMOGLOBIN 28.7 pg (27.0-33.0); MEAN CORPUSCULAR HGB CONC 31.9 g/dl (32.0-36.5); MONO # 1.4 10^3/uL (0.0-0.8); MONO % 11.6 % (2.0-8.0); NEUTROPHILS # 8.7 10^3/uL (1.5-8.5); PLATELET COUNT, AUTOMATED 338 10^3/uL (150-450); RED BLOOD COUNT 2.89 10^6/uL (4.00-5.40); WHITE BLOOD COUNT 11.7 10^3/uL (4.0-10.0)
[2022-08-24 07:32] LABS: INR 1.13; PROTHROMBIN TIME 14.7 SECONDS (12.5-14.5)
[2022-08-24 07:47] LABS: MAGNESIUM LEVEL 1.8 MG/DL (1.8-2.4)
[2022-08-24 07:49] LABS: BLOOD UREA NITROGEN 15 MG/DL (9-23); CALCIUM LEVEL 8.4 MG/DL (8.3-10.6); CARBON DIOXIDE LEVEL 23 MMOL/L (20-31); CHLORIDE LEVEL 106 MMOL/L (98-107); CREATININE FOR GFR 0.66 MG/DL (0.55-1.30); GLOMERULAR FILTRATION RATE > 60.0 (>32); GLUCOSE, FASTING 120 MG/DL (74-106); PHOSPHORUS LEVEL 3.3 MG/DL (2.4-5.1); POTASSIUM SERUM 4.5 MMOL/L (3.5-5.1); SODIUM LEVEL 140 MMOL/L (136-145)
[2022-08-24] MEDS: FLUTICASONE HFA 220 MCG 12 GM INHALER (FLOVENT) INH SCH ×2 (08:04→19:26)
[2022-08-24] MEDS: LORATADINE 10 MG TAB PO SCH (09:40)
[2022-08-24] MEDS: MIRALAX *UNIT DOSE* 17GM PACKET PO SCH (09:40)
[2022-08-24] MEDS: OMEPRAZOLE 20MG CAP PO SCH (09:40)
[2022-08-24] MEDS: MONTELUKAST 10 MG TAB PO SCH (09:40)
[2022-08-24] MEDS: FERROUS GLUCONATE 324 MG TAB PO SCH (09:40)
[2022-08-24] MEDS: SENOKOT S TAB PO SCH ×2 (09:40→20:21)
[2022-08-24] MEDS: DICLOFENAC EPOLAMINE 1.3% PATCH TOP SCH ×2 (09:41→20:25)
[2022-08-24] MEDS: oxyCODONE 5MG TAB PO PRN ×2 (09:43→20:26)
[2022-08-24] MEDS: BENAZEPRIL 20 MG TAB PO SCH (09:59)
[2022-08-24 10:00] VITALS: BP 156/78
[2022-08-24] MEDS: HEPARIN SOD (PORCINE) 5000UNITS/ML 1ML VIAL/SYRINGE SQ SCH ×2 (13:10→23:41)
[2022-08-24 14:00] VITALS: BP 114/62
[2022-08-24 18:00] VITALS: BP 141/79
[2022-08-24 20:08] VITALS: BP 127/64
[2022-08-24] MEDS: DIVALPROEX 250MG TAB PO SCH (20:25)
[2022-08-24] MEDS: SIMVASTATIN 40 MG TAB PO SCH (20:25)
[2022-08-24] MEDS: bisoproloL fumarate 5 MG TAB PO SCH (20:25)
[2022-08-24] MEDS: LIDOCAINE 5% (LIDODERM) PATCH TD SCH (20:26)
[2022-08-25] VITALS (7 sets, daily range): BP systolic 138–158; BP diastolic 72–81
[2022-08-25] MEDS: HEPARIN SOD (PORCINE) 5000UNITS/ML 1ML VIAL/SYRINGE SQ SCH ×3 (05:35→23:12)
[2022-08-25] MEDS: ceFAZolin SOD 2 GM in IV 1 EA IV SCH (05:35)
[2022-08-25] MEDS: ACETAMINOPHEN 500 MG TAB PO SCH ×4 (05:38→23:13)
[2022-08-25 05:53] LABS: BASO # 0.1 10^3/uL (0.0-0.2); BASO % 0.8 % (0.0-1.0); EOS # 0.4 10^3/uL (0.0-0.5); EOS % 3.5 % (0.0-3.0); HEMATOCRIT 29.2 % (36.0-47.0); HEMOGLOBIN 9.2 g/dl (12.0-15.5); LYMPH # 2.6 10^3/uL (1.5-5.0); LYMPH % 21.6 % (24.0-44.0); MEAN CORPUSCULAR HGB CONC 31.5 g/dl (32.0-36.5); MEAN CORPUSCULAR VOLUME 92.1 fl (80.0-96.0); MONO # 1.4 10^3/uL (0.0-0.8); MONO % 11.8 % (2.0-8.0); NEUTROPHILS # 7.1 10^3/uL (1.5-8.5); NEUTROPHILS % 60.1 % (36.0-66.0); PLATELET COUNT, AUTOMATED 400 10^3/uL (150-450); RED BLOOD COUNT 3.17 10^6/uL (4.00-5.40); WHITE BLOOD COUNT 11.8 10^3/uL (4.0-10.0)
[2022-08-25 06:02] LABS: INR 1.05; PROTHROMBIN TIME 13.9 SECONDS (12.5-14.5)
[2022-08-25] MEDS: FLUTICASONE HFA 220 MCG 12 GM INHALER (FLOVENT) INH SCH ×2 (07:51→19:31)
[2022-08-25] MEDS: LORATADINE 10 MG TAB PO SCH (08:03)
[2022-08-25] MEDS: CEFDINIR 300 MG CAP (OMNICEF) PO SCH ×2 (08:03→20:27)
[2022-08-25] MEDS: OMEPRAZOLE 20MG CAP PO SCH (08:03)
[2022-08-25] MEDS: SENOKOT S TAB PO SCH ×2 (08:03→20:19)
[2022-08-25] MEDS: FERROUS GLUCONATE 324 MG TAB PO SCH (08:03)
[2022-08-25] MEDS: MIRALAX *UNIT DOSE* 17GM PACKET PO SCH (08:03)
[2022-08-25] MEDS: DICLOFENAC EPOLAMINE 1.3% PATCH TOP SCH ×2 (08:05→20:28)
[2022-08-25] MEDS: MONTELUKAST 10 MG TAB PO SCH (08:07)
[2022-08-25] MEDS: BENAZEPRIL 20 MG TAB PO SCH (08:09)
[2022-08-25] MEDS: oxyCODONE 5MG TAB PO PRN ×2 (10:31→20:29)
[2022-08-25] MEDS: ATORVASTATIN 20 MG TAB PO SCH (11:34)
[2022-08-25] MEDS: LIDOCAINE 5% (LIDODERM) PATCH TD SCH (20:27)
[2022-08-25] MEDS: DIVALPROEX 250MG TAB PO SCH (20:27)
[2022-08-25] MEDS: bisoproloL fumarate 5 MG TAB PO SCH (20:28)
[2022-08-26 01:52] VITALS: BP 148/73
[2022-08-26 05:28] VITALS: BP 161/82
[2022-08-26] MEDS: HEPARIN SOD (PORCINE) 5000UNITS/ML 1ML VIAL/SYRINGE SQ SCH ×2 (05:41→14:00)
[2022-08-26] MEDS: ACETAMINOPHEN 500 MG TAB PO SCH ×2 (05:42→13:10)
[2022-08-26] MEDS: FLUTICASONE HFA 220 MCG 12 GM INHALER (FLOVENT) INH SCH (07:30)
[2022-08-26 07:45] LABS: BASO # 0.1 10^3/uL (0.0-0.2); BASO % 0.7 % (0.0-1.0); EOS # 0.4 10^3/uL (0.0-0.5); EOS % 4.2 % (0.0-3.0); HEMATOCRIT 27.4 % (36.0-47.0); HEMOGLOBIN 8.4 g/dl (12.0-15.5); LYMPH # 1.9 10^3/uL (1.5-5.0); LYMPH % 20.7 % (24.0-44.0); MEAN CORPUSCULAR HEMOGLOBIN 28.7 pg (27.0-33.0); MEAN CORPUSCULAR HGB CONC 30.7 g/dl (32.0-36.5); MEAN CORPUSCULAR VOLUME 93.5 fl (80.0-96.0); MONO # 1.1 10^3/uL (0.0-0.8); MONO % 11.8 % (2.0-8.0); NEUTROPHILS # 5.6 10^3/uL (1.5-8.5); NEUTROPHILS % 60.8 % (36.0-66.0); PLATELET COUNT, AUTOMATED 330 10^3/uL (150-450); RED BLOOD COUNT 2.93 10^6/uL (4.00-5.40); WHITE BLOOD COUNT 9.2 10^3/uL (4.0-10.0)
[2022-08-26] MEDS: oxyCODONE 5MG TAB PO PRN (08:41)
[2022-08-26 08:42] VITALS: BP 165/81
[2022-08-26] MEDS: CEFDINIR 300 MG CAP (OMNICEF) PO SCH (08:42)
[2022-08-26] MEDS: BENAZEPRIL 20 MG TAB PO SCH (08:42)
[2022-08-26] MEDS: ATORVASTATIN 20 MG TAB PO SCH (08:42)
[2022-08-26] MEDS: FERROUS GLUCONATE 324 MG TAB PO SCH (08:43)
[2022-08-26] MEDS: DICLOFENAC EPOLAMINE 1.3% PATCH TOP SCH (08:43)
[2022-08-26] MEDS: LORATADINE 10 MG TAB PO SCH (08:44)
[2022-08-26] MEDS: OMEPRAZOLE 20MG CAP PO SCH (08:44)
[2022-08-26] MEDS: MONTELUKAST 10 MG TAB PO SCH (08:44)
[2022-08-26] MEDS: SENOKOT S TAB PO SCH ×2 (08:44→08:53)
[2022-08-26] MEDS: MIRALAX *UNIT DOSE* 17GM PACKET PO SCH (08:53)
[2022-08-26 10:00] VITALS: BP 158/80
== END 2022-08-26 14:45 | disposition home or self-care (01) | DRG 813 ==
LOC: EDBD 15:55 → M ED 15:55 → M ED INP 18:35 → ENRESERV 08-21 14:15 → M MSPAV 08-21 14:55
PROVIDERS: ADMIT Student in an Organized Health Care Education/Training Program; ATTEND Family Medicine
PROC: 30233K1 Transfusion of Nonautologous Frozen Plasma into Peripheral Vein, Percutaneous Approach (ICD-10-PCS; principal; 2022-08-21)
DX: D68.32 Hemorrhagic disorder due to extrinsic circulating anticoagulants (principal); D62 Acute posthemorrhagic anemia; L03.116 Cellulitis of left lower limb; I48.91 Unspecified atrial fibrillation; J44.9 Chronic obstructive pulmonary disease, unspecified; M85.88 Other specified disorders of bone density and structure, other site; I72.0 Aneurysm of carotid artery; E78.00 Pure hypercholesterolemia, unspecified; F32.A Depression, unspecified; K59.00 Constipation, unspecified; F41.9 Anxiety disorder, unspecified; K21.9 Gastro-esophageal reflux disease without esophagitis; G43.909 Migraine, unspecified, not intractable, without status migrainosus; I10 Essential (primary) hypertension; E55.9 Vitamin D deficiency, unspecified; S80.02XD Contusion of left knee, subsequent encounter; Z90.79 Acquired absence of other genital organ(s); Z95.0 Presence of cardiac pacemaker; Z98.41 Cataract extraction status, right eye; Z98.42 Cataract extraction status, left eye; Z79.01 Long term (current) use of anticoagulants; Z79.82 Long term (current) use of aspirin; Z79.899 Other long term (current) drug therapy; Z88.1 Allergy status to other antibiotic agents; Z91.040 Latex allergy status

== ENCOUNTER → 2022-09-02 | Outpatient (CLI) | payer MEDICARE, MEDICAID ==
[~2022-09-02] MED LIST changes: +FLUT22IN PO
[2022-09-02 17:10] LABS: BASO # 0.1 10^3/uL (0.0-0.2); BASO % 0.9 % (0.0-1.0); EOS # 0.5 10^3/uL (0.0-0.5); EOS % 4.1 % (0.0-3.0); HEMATOCRIT 32.4 % (36.0-47.0); HEMOGLOBIN 9.8 g/dl (12.0-15.5); LYMPH # 1.8 10^3/uL (1.5-5.0); LYMPH % 15.7 % (24.0-44.0); MEAN CORPUSCULAR HEMOGLOBIN 28.7 pg (27.0-33.0); MEAN CORPUSCULAR HGB CONC 30.2 g/dl (32.0-36.5); MEAN CORPUSCULAR VOLUME 94.7 fl (80.0-96.0); MONO # 1.4 10^3/uL (0.0-0.8); MONO % 11.9 % (2.0-8.0); NEUTROPHILS # 7.6 10^3/uL (1.5-8.5); NEUTROPHILS % 66.6 % (36.0-66.0); PLATELET COUNT, AUTOMATED 395 10^3/uL (150-450); RED BLOOD COUNT 3.42 10^6/uL (4.00-5.40); WHITE BLOOD COUNT 11.4 10^3/uL (4.0-10.0)
[2022-09-02 17:25] LABS: INR 1.08; PROTHROMBIN TIME 14.2 SECONDS (12.5-14.5)
== END ==
LOC: M PLALAB 14:12
PROVIDERS: ATTEND Physician Assistant Medical
DX: T14.8XXA Other injury of unspecified body region, initial encounter (principal)

== ENCOUNTER → 2022-09-09 | Outpatient (CLI) | payer MEDICARE, MEDICAID | LOC: M PLAIMG 12:26 | PROVIDERS: ATTEND Physician Assistant Medical | DX: M79.672 Pain in left foot (principal) ==

== ENCOUNTER → 2022-09-09 | Outpatient (CLI) | payer MEDICARE, MEDICAID ==
[2022-09-09 15:35] LABS: HEMATOCRIT 37.2 % (36.0-47.0); HEMOGLOBIN 11.4 g/dl (12.0-15.5); MEAN CORPUSCULAR HEMOGLOBIN 28.3 pg (27.0-33.0); MEAN CORPUSCULAR HGB CONC 30.6 g/dl (32.0-36.5); MEAN CORPUSCULAR VOLUME 92.3 fl (80.0-96.0); PLATELET COUNT, AUTOMATED 428 10^3/uL (150-450); RED BLOOD COUNT 4.03 10^6/uL (4.00-5.40); WHITE BLOOD COUNT 13.7 10^3/uL (4.0-10.0)
[2022-09-09 16:03] LABS: BLOOD UREA NITROGEN 17 MG/DL (9-23); CALCIUM LEVEL 9.5 MG/DL (8.3-10.6); CARBON DIOXIDE LEVEL 29 MMOL/L (20-31); CHLORIDE LEVEL 102 MMOL/L (98-107); CREATININE FOR GFR 0.89 MG/DL (0.55-1.30); GLOMERULAR FILTRATION RATE > 60.0 (>32); GLUCOSE, FASTING 107 MG/DL (74-106); POTASSIUM SERUM 4.4 MMOL/L (3.5-5.1); SODIUM LEVEL 140 MMOL/L (136-145)
== END ==
LOC: M PLALAB 12:22
PROVIDERS: ATTEND Nurse Practitioner Adult Health
DX: T14.8XXA Other injury of unspecified body region, initial encounter (principal); W18.30XA Fall on same level, unspecified, initial encounter; Y92.009 Unspecified place in unspecified non-institutional (private) residence as the place of occurrence of the external cause

== ENCOUNTER → 2022-11-15 | Outpatient (CLI) | payer MEDICARE, MEDICAID | LOC: M PLALAB 09:45 | PROVIDERS: ATTEND Nurse Practitioner Adult Health | DX: M25.552 Pain in left hip (principal) ==

== ENCOUNTER → 2023-01-17 | Outpatient (CLI) | payer MEDICARE, MEDICAID | LOC: M RAD 11:30 | PROVIDERS: ATTEND Psychiatry & Neurology Neurology | DX: I65.23 Occlusion and stenosis of bilateral carotid arteries (principal); Z86.73 Personal history of transient ischemic attack (TIA), and cerebral infarction without residual deficits ==

== ENCOUNTER → 2023-10-07 | Outpatient (CLI) | payer OTHER, MEDICAID ==
[~2023-10-07] MED LIST changes: +CEFD1CAP9 PO; -CEFD300C41 PO; +DICL100G10 TOP; -DICL1GEL3 TOP
== END ==
LOC: M PLAIMG 11:43
PROVIDERS: ATTEND Nurse Practitioner Adult Health
DX: M79.622 Pain in left upper arm (principal)

== ENCOUNTER 2023-10-19 22:30 | Emergency (ER) | payer OTHER, MEDICAID ==
[~2023-10-19] VITALS: Ht 157.5 cm; Wt 86.4 kg
[2023-10-20] MEDS ORDERED: ACETAMINOPHEN 325 MG TAB As Ordered ONE (01:44)
[2023-10-20] MEDS ORDERED: ISOVUE-370 76% 100ML VIAL As Ordered ONE (01:45)
[2023-10-20 03:18] LABS: BASO # 0.1 10^3/uL (0.0-0.2); BASO % 0.4 % (0.0-1.0); EOS # 0.2 10^3/uL (0.0-0.5); EOS % 1.4 % (0.0-3.0); HEMATOCRIT 38.7 % (36.0-47.0); HEMOGLOBIN 12.4 g/dl (12.0-15.5); LYMPH # 0.7 10^3/uL (1.5-5.0); LYMPH % 5.6 % (24.0-44.0); MEAN CORPUSCULAR HEMOGLOBIN 26.6 pg (27.0-33.0); MONO # 1.7 10^3/uL (0.0-0.8); MONO % 12.9 % (2.0-8.0); NEUTROPHILS # 10.4 10^3/uL (1.5-8.5); NEUTROPHILS % 79.2 % (36.0-66.0); PLATELET COUNT, AUTOMATED 292 10^3/uL (150-450); RED BLOOD COUNT 4.66 10^6/uL (4.00-5.40); WHITE BLOOD COUNT 13.1 10^3/uL (4.0-10.0)
[2023-10-20 03:19] LABS: ALBUMIN 3.4 G/DL (3.2-5.2); ALKALINE PHOSPHATASE 96 U/L (46-116); ALT/SGPT 10 U/L (7.0-40); AST/SGOT 10 U/L (<34); BILIRUBIN,DIRECT 0.1 MG/DL (<0.4); BILIRUBIN,TOTAL 0.4 MG/DL (0.3-1.2); BLOOD UREA NITROGEN 17 MG/DL (9-23); CALCIUM LEVEL 9.4 MG/DL (8.3-10.6); CARBON DIOXIDE LEVEL 28 MMOL/L (20-31); CHLORIDE LEVEL 101 MMOL/L (98-107); CK-MB VALUE MASS < 1.0 NG/ML (<3.6); CPK CREATINE PHOSPHOKINASE 45 U/L (34-145); CREATININE FOR GFR 0.87 MG/DL (0.55-1.30); GLOMERULAR FILTRATION RATE > 60.0 (>32); GLUCOSE, FASTING 106 MG/DL (74-106); MB/CK RELATIVE INDEX 2.22 (< OR =4); POTASSIUM SERUM 4.9 MMOL/L (3.5-5.1); SODIUM LEVEL 136 MMOL/L (136-145); THYROID STIMULATING HORMONE 1.149 uIU/ML (0.55-4.78); TOTAL PROTEIN 7.3 G/DL (5.7-8.2)
[2023-10-20 04:21] VITALS: BP 149/63; TEMP 98.3; O2SAT 96
== END 2023-10-20 04:32 | disposition home or self-care (01) ==
LOC: M ED 22:30
DX: U07.1 COVID-19 (principal); I10 Essential (primary) hypertension; I48.91 Unspecified atrial fibrillation; Z88.1 Allergy status to other antibiotic agents; Z91.040 Latex allergy status; Z79.899 Other long term (current) drug therapy; Z79.1 Long term (current) use of non-steroidal anti-inflammatories (NSAID); Z79.51 Long term (current) use of inhaled steroids
CPT/HCPCS: 36415; 71046; 71275; 80048; 80076; 82550; 82553; 83880; 84443; 84484; 85025; 87040; 87486; 87581; 87633; 87798; 93005; 99284; Q9967

== ENCOUNTER → 2023-10-28 | Outpatient (CLI) | payer OTHER, MEDICAID | LOC: M RAD 09:37 | PROVIDERS: ATTEND Nurse Practitioner Adult Health | DX: M79.622 Pain in left upper arm (principal) ==

== ENCOUNTER → 2023-11-04 | Outpatient (CLI) | payer OTHER, MEDICAID | LOC: M SOG 07:55 | PROVIDERS: ATTEND Physician Assistant | DX: M25.512 Pain in left shoulder (principal) ==

== ENCOUNTER → 2023-11-11 | Outpatient (CLI) | payer OTHER, MEDICAID ==
[2023-11-11 11:12] LABS: INR 2.11; PROTHROMBIN TIME 22.9 SECONDS (12.5-14.5)
== END ==
LOC: M PLALAB 08:47
PROVIDERS: ATTEND Nurse Practitioner Adult Health
DX: Z51.81 Encounter for therapeutic drug level monitoring (principal)

== ENCOUNTER → 2023-12-09 | Outpatient (CLI) | payer OTHER, MEDICAID | LOC: M SOG 09:51 | PROVIDERS: ATTEND Physician Assistant | DX: M79.602 Pain in left arm (principal) ==

== ENCOUNTER → 2024-01-16 | Outpatient (CLI) | payer OTHER, MEDICAID ==
[2024-01-16 12:51] LABS: INR 2.22; PROTHROMBIN TIME 23.8 SECONDS (12.5-14.5)
[2024-01-16 13:12] LABS: HEMATOCRIT 36.5 % (36.0-47.0); HEMOGLOBIN 11.5 g/dl (12.0-15.5); MEAN CORPUSCULAR HEMOGLOBIN 27.8 pg (27.0-33.0); MEAN CORPUSCULAR HGB CONC 31.5 g/dl (32.0-36.5); MEAN CORPUSCULAR VOLUME 88.2 fl (80.0-96.0); PLATELET COUNT, AUTOMATED 266 10^3/uL (150-450); RED BLOOD COUNT 4.14 10^6/uL (4.00-5.40); WHITE BLOOD COUNT 13.8 10^3/uL (4.0-10.0)
== END ==
LOC: M PLALAB 10:08
PROVIDERS: ATTEND Nurse Practitioner Adult Health
DX: I48.91 Unspecified atrial fibrillation (principal)

== ENCOUNTER → 2024-02-17 | Outpatient (CLI) | payer OTHER, MEDICAID | LOC: M PLAIMG 10:53 | PROVIDERS: ATTEND Nurse Practitioner Adult Health | DX: M19.011 Primary osteoarthritis, right shoulder (principal) ==

== ENCOUNTER 2024-03-25 20:29 | Emergency (ER) | payer OTHER, MEDICAID ==
[~2024-03-25] VITALS: Ht 157.5 cm; Wt 86.4 kg
[2024-03-25 21:11] LABS: BASO # 0.1 10^3/uL (0.0-0.2); BASO % 0.5 % (0.0-1.0); EOS # 0.2 10^3/uL (0.0-0.5); EOS % 2.4 % (0.0-3.0); HEMATOCRIT 36.2 % (36.0-47.0); HEMOGLOBIN 11.8 g/dl (12.0-15.5); LYMPH # 1.1 10^3/uL (1.5-5.0); LYMPH % 11.1 % (24.0-44.0); MEAN CORPUSCULAR HEMOGLOBIN 27.3 pg (27.0-33.0); MEAN CORPUSCULAR HGB CONC 32.6 g/dl (32.0-36.5); MEAN CORPUSCULAR VOLUME 83.8 fl (80.0-96.0); MONO # 1.5 10^3/uL (0.0-0.8); MONO % 15.6 % (2.0-8.0); NEUTROPHILS # 6.6 10^3/uL (1.5-8.5); NEUTROPHILS % 69.9 % (36.0-66.0); PLATELET COUNT, AUTOMATED 292 10^3/uL (150-450); RED BLOOD COUNT 4.32 10^6/uL (4.00-5.40); WHITE BLOOD COUNT 9.5 10^3/uL (4.0-10.0)
[2024-03-25] MEDS: ACETAMINOPHEN TAB 650MG DOSE (2X325MG) PO ONE (21:14)
[2024-03-25] MEDS: predniSONE 20 MG TAB PO ONE (21:14)
[2024-03-25] MEDS: IPRATROPIUM 0.5MG/ALBUTEROL 2.5MG INH SOL UD 3ML (DUONEB) NEB ONE (21:15)
[2024-03-25] MEDS: IPRATROPIUM 0.5MG/ALBUTEROL 2.5MG INH SOL UD 3ML (DUONEB) NEB PRN (21:15)
[2024-03-25 21:52] LABS: ALBUMIN 3.4 G/DL (3.2-5.2); ALKALINE PHOSPHATASE 84 U/L (46-116); ALT/SGPT 14 U/L (7.0-40); AST/SGOT 13 U/L (<34); BILIRUBIN,DIRECT 0.1 MG/DL (<0.4); BILIRUBIN,TOTAL 0.4 MG/DL (0.3-1.2); BLOOD UREA NITROGEN 15 MG/DL (9-23); CALCIUM LEVEL 9.1 MG/DL (8.3-10.6); CARBON DIOXIDE LEVEL 26 MMOL/L (20-31); CHLORIDE LEVEL 103 MMOL/L (98-107); CK-MB VALUE MASS < 1.0 NG/ML (<3.6); CREATININE FOR GFR 0.94 MG/DL (0.55-1.30); GLOMERULAR FILTRATION RATE > 60.0 (>32); GLUCOSE, FASTING 112 MG/DL (74-106); POTASSIUM SERUM 4.1 MMOL/L (3.5-5.1); SODIUM LEVEL 137 MMOL/L (136-145); TOTAL PROTEIN 6.2 G/DL (5.7-8.2)
[2024-03-25 21:53] LABS: CPK CREATINE PHOSPHOKINASE 63 U/L (34-145); MB/CK RELATIVE INDEX 1.58 (< OR =4)
[2024-03-25 22:44] VITALS: TEMP 98.1
[2024-03-25] MEDS ORDERED: PRED20TA PO (23:52)
[2024-03-26] VITALS: BP 157/80; O2SAT 93
[2024-03-27] MEDS ORDERED: ARNU1INH3 INH (14:12)
[2024-03-27] MEDS ORDERED: D3 H2000 PO (14:12)
[2024-03-27] MEDS ORDERED: LIDO1ADH52 TOP (14:12)
== END 2024-03-26 00:07 | disposition home or self-care (01) ==
LOC: EDBD 20:29 → M ED 20:29
DX: J44.1 Chronic obstructive pulmonary disease with (acute) exacerbation (principal); J12.2 Parainfluenza virus pneumonia; Z88.0 Allergy status to penicillin; Z88.1 Allergy status to other antibiotic agents; Z91.040 Latex allergy status; Z79.899 Other long term (current) drug therapy; Z79.51 Long term (current) use of inhaled steroids
CPT/HCPCS: 71046; 80048; 80076; 82550; 82553; 83605; 83880; 84484; 85025; 87040; 87486; 87581; 87633; 87798; 93005; 93041; 94640; 94760; 99285; J7512

== ENCOUNTER 2024-03-27 10:27 | Inpatient (IN) | payer OTHER, MEDICAID ==
[~2024-03-27] VITALS: Ht 157.5 cm; Wt 88.0 kg
[2024-03-27 11:07] LABS: BASO % 0.3 % (0.0-1.0); HEMATOCRIT 37.9 % (36.0-47.0); HEMOGLOBIN 12.1 g/dl (12.0-15.5); LYMPH # 1.1 10^3/uL (1.5-5.0); LYMPH % 7.3 % (24.0-44.0); MEAN CORPUSCULAR HGB CONC 31.9 g/dl (32.0-36.5); MEAN CORPUSCULAR VOLUME 84.6 fl (80.0-96.0); MONO # 0.9 10^3/uL (0.0-0.8); MONO % 6.1 % (2.0-8.0); NEUTROPHILS # 12.9 10^3/uL (1.5-8.5); NEUTROPHILS % 85.6 % (36.0-66.0); PLATELET COUNT, AUTOMATED 311 10^3/uL (150-450); RED BLOOD COUNT 4.48 10^6/uL (4.00-5.40)
[2024-03-27] MEDS: IPRATROPIUM 0.5MG/ALBUTEROL 2.5MG INH SOL UD 3ML (DUONEB) NEB SCH (11:14)
[2024-03-27] MEDS: dexAMETHasone 20MG/5ML VIAL IV ONE (11:22)
[2024-03-27 11:34] LABS: BLOOD UREA NITROGEN 20 MG/DL (9-23); CALCIUM LEVEL 9.4 MG/DL (8.3-10.6); CARBON DIOXIDE LEVEL 29 MMOL/L (20-31); CHLORIDE LEVEL 102 MMOL/L (98-107); CREATININE FOR GFR 0.89 MG/DL (0.55-1.30); GLOMERULAR FILTRATION RATE > 60.0 (>32); GLUCOSE, FASTING 141 MG/DL (74-106); POTASSIUM SERUM 3.9 MMOL/L (3.5-5.1); SODIUM LEVEL 141 MMOL/L (136-145)
[2024-03-27] MEDS ORDERED: D3 H2000 PO (14:12)
[2024-03-27] MEDS ORDERED: LIDO1ADH52 TOP (14:12)
[2024-03-27] MEDS ORDERED: ARNU1INH3 INH (14:12)
[2024-03-27] MEDS ORDERED: HOME MED LIST COMPLETE! XX SCH (14:15)
[2024-03-27] MEDS: NS 1,000 ML IV ONE (14:42)
[2024-03-27] MEDS: DIGOXIN INJ 0.5 MG/2 ML AMP IV ONE (14:42)
[2024-03-27] MEDS: LEVALBUTEROL 1.25MG 0.5ML CONCENTRATE NEB INH SCH (15:28)
[2024-03-27 16:00] VITALS: TEMP 97.4; O2SAT 94
[2024-03-27 16:19] VITALS: BP 193/84; TEMP 97.5; O2SAT 94
[2024-03-27] MEDS: bisoproloL fumarate 5 MG TAB PO SCH (16:38)
[2024-03-27] MEDS: amLODIPine 5 MG TAB PO SCH (16:39)
[2024-03-27] MEDS: SIMVASTATIN 40 MG TAB PO SCH (16:39)
[2024-03-27] MEDS: PILL CUTTER 1 EACH XX PRN (16:42)
[2024-03-27] MEDS: methylPREDNISolone 40MG 1ML VIAL IV SCH (17:46)
[2024-03-27 18:00] VITALS: BP 172/77
[2024-03-27] MEDS: CitaloPRAM (CeleXA) 10 MG TABLET PO SCH (18:28)
[2024-03-27 20:00] VITALS: BP 171/76; TEMP 97.4; O2SAT 91
[2024-03-27] MEDS: SYMBICORT 160/4.5MCG INHALER 6GM INH SCH (20:15)
[2024-03-27 20:31] LABS: INR 2.63; PARTIAL THROMBOPLASTIN TIME 38.5 SECONDS (24.8-34.2); PROTHROMBIN TIME 27.1 SECONDS (12.5-14.5)
[2024-03-27] MEDS: SENNA 8.6 MG TAB (SENOKOT) PO SCH (21:00)
[2024-03-27] MEDS: DIVALPROEX 250MG TAB PO SCH (21:32)
[2024-03-27] MEDS: DOCUSATE SODIUM 100MG CAPSULE PO SCH (21:32)
[2024-03-27 23:50] VITALS: BP 184/81; TEMP 97; O2SAT 93
[2024-03-28 04:00] VITALS: BP 159/71; TEMP 97.1; O2SAT 94
[2024-03-28 05:48] LABS: HEMATOCRIT 37.6 % (36.0-47.0); MEAN CORPUSCULAR HEMOGLOBIN 26.6 pg (27.0-33.0); MEAN CORPUSCULAR HGB CONC 31.9 g/dl (32.0-36.5); MEAN CORPUSCULAR VOLUME 83.4 fl (80.0-96.0); PLATELET COUNT, AUTOMATED 279 10^3/uL (150-450); RED BLOOD COUNT 4.51 10^6/uL (4.00-5.40); WHITE BLOOD COUNT 16.2 10^3/uL (4.0-10.0)
[2024-03-28 06:23] LABS: BLOOD UREA NITROGEN 21 MG/DL (9-23); CALCIUM LEVEL 9.2 MG/DL (8.3-10.6); CARBON DIOXIDE LEVEL 26 MMOL/L (20-31); CHLORIDE LEVEL 102 MMOL/L (98-107); CREATININE FOR GFR 0.78 MG/DL (0.55-1.30); GLOMERULAR FILTRATION RATE > 60.0 (>32); GLUCOSE, FASTING 141 MG/DL (74-106); POTASSIUM SERUM 4.2 MMOL/L (3.5-5.1); SODIUM LEVEL 137 MMOL/L (136-145)
[2024-03-28 07:30] VITALS: BP 155/72; TEMP 97.3; O2SAT 94
[2024-03-28] MEDS: LORATADINE 10 MG TAB PO SCH (08:10)
[2024-03-28] MEDS: MONTELUKAST 10 MG TAB PO SCH (08:10)
[2024-03-28] MEDS: OMEPRAZOLE 20MG CAP PO SCH (08:10)
[2024-03-28] MEDS: NS 1,000 ML IV ONE (09:19)
[2024-03-28 11:50] VITALS: BP 160/80; TEMP 97.8; O2SAT 97
[2024-03-28 16:00] VITALS: BP 146/67; TEMP 97.9
[2024-03-28] MEDS: WARFARIN SOD 5MG TAB PO SCH (16:38)
[2024-03-28 19:00] VITALS: BP 144/70; TEMP 97.7; O2SAT 95
[2024-03-29 00:27] VITALS: BP 156/72; TEMP 98.6; O2SAT 92
[2024-03-29 05:20] LABS: BASO % 0.1 % (0.0-1.0); HEMATOCRIT 39.2 % (36.0-47.0); HEMOGLOBIN 12.4 g/dl (12.0-15.5); LYMPH # 1.5 10^3/uL (1.5-5.0); LYMPH % 6.7 % (24.0-44.0); MEAN CORPUSCULAR HEMOGLOBIN 27.1 pg (27.0-33.0); MEAN CORPUSCULAR HGB CONC 31.6 g/dl (32.0-36.5); MEAN CORPUSCULAR VOLUME 85.6 fl (80.0-96.0); MONO # 1.8 10^3/uL (0.0-0.8); MONO % 7.9 % (2.0-8.0); NEUTROPHILS # 19.1 10^3/uL (1.5-8.5); PLATELET COUNT, AUTOMATED 291 10^3/uL (150-450); RED BLOOD COUNT 4.58 10^6/uL (4.00-5.40); WHITE BLOOD COUNT 22.7 10^3/uL (4.0-10.0)
[2024-03-29 05:43] LABS: BLOOD UREA NITROGEN 25 MG/DL (9-23); CARBON DIOXIDE LEVEL 27 MMOL/L (20-31); CHLORIDE LEVEL 104 MMOL/L (98-107); CREATININE FOR GFR 0.77 MG/DL (0.55-1.30); GLOMERULAR FILTRATION RATE > 60.0 (>32); GLUCOSE, FASTING 127 MG/DL (74-106); POTASSIUM SERUM 4.1 MMOL/L (3.5-5.1); SODIUM LEVEL 141 MMOL/L (136-145)
[2024-03-29 07:37] VITALS: BP 152/74; TEMP 98; O2SAT 90
[2024-03-29 08:37] VITALS: BP 152/74
== END 2024-03-29 11:04 | disposition home or self-care (01) | DRG 202 ==
LOC: M ED 10:27 → EDBD 10:27 → M ED INP 13:26 → M PCU 16:20
PROVIDERS: ADMIT Internal Medicine Nephrology; ATTEND Internal Medicine Nephrology
DX: J45.901 Unspecified asthma with (acute) exacerbation (principal); E87.20 Acidosis, unspecified; I48.91 Unspecified atrial fibrillation; M25.511 Pain in right shoulder; G89.29 Other chronic pain; F41.9 Anxiety disorder, unspecified; E78.00 Pure hypercholesterolemia, unspecified; M85.80 Other specified disorders of bone density and structure, unspecified site; G43.909 Migraine, unspecified, not intractable, without status migrainosus; B34.8 Other viral infections of unspecified site; R73.01 Impaired fasting glucose; K21.9 Gastro-esophageal reflux disease without esophagitis; I10 Essential (primary) hypertension; E55.9 Vitamin D deficiency, unspecified; Z79.01 Long term (current) use of anticoagulants; Z79.899 Other long term (current) drug therapy; Z88.0 Allergy status to penicillin; Z88.1 Allergy status to other antibiotic agents; Z91.040 Latex allergy status; Z95.0 Presence of cardiac pacemaker

== ENCOUNTER → 2024-04-23 | Outpatient (CLI) | payer OTHER, MEDICAID ==
[~2024-04-23] MED LIST changes: +ARNU1INH3 INH; +D3 H2000 PO; +LIDO1ADH52 TOP
[2024-04-23 13:37] LABS: ALBUMIN 3.5 G/DL (3.2-5.2); ALKALINE PHOSPHATASE 72 U/L (46-116); ALT/SGPT 15 U/L (7.0-40); AST/SGOT 10 U/L (<34); BILIRUBIN,TOTAL 0.5 MG/DL (0.3-1.2); BLOOD UREA NITROGEN 18 MG/DL (9-23); CALCIUM LEVEL 9.3 MG/DL (8.3-10.6); CARBON DIOXIDE LEVEL 29 MMOL/L (20-31); CHLORIDE LEVEL 104 MMOL/L (98-107); CHOLESTEROL LEVEL 169 MG/DL (<200); CHOLESTEROL RISK RATIO 3.84 (<5); CREATININE FOR GFR 0.93 MG/DL (0.55-1.30); GLOMERULAR FILTRATION RATE > 60.0 (>32); GLUCOSE, FASTING 112 MG/DL (74-106); LDL CHOLESTEROL 80.6 MG/DL (<100); MAGNESIUM LEVEL 1.8 MG/DL (1.8-2.4); POTASSIUM SERUM 4.3 MMOL/L (3.5-5.1); SODIUM LEVEL 137 MMOL/L (136-145); TOTAL PROTEIN 6.5 G/DL (5.7-8.2); TRIGLYCERIDES LEVEL 222 MG/DL (<150)
[2024-04-23 13:40] LABS: FERRITIN 55.3 NG/ML (7.3-270.7)
[2024-04-23 13:42] LABS: HEMATOCRIT 37.5 % (36.0-47.0); HEMOGLOBIN 11.9 g/dl (12.0-15.5); MEAN CORPUSCULAR HEMOGLOBIN 27.7 pg (27.0-33.0); MEAN CORPUSCULAR HGB CONC 31.7 g/dl (32.0-36.5); MEAN CORPUSCULAR VOLUME 87.2 fl (80.0-96.0); PLATELET COUNT, AUTOMATED 209 10^3/uL (150-450)
[2024-04-23 13:55] LABS: HEMOGLOBIN A1c 6.2 % (4.0-6.0)
== END ==
LOC: M PLALAB 09:32
PROVIDERS: ATTEND Nurse Practitioner Adult Health
DX: I48.91 Unspecified atrial fibrillation (principal); E78.00 Pure hypercholesterolemia, unspecified

== ENCOUNTER → 2024-06-19 | Outpatient (CLI) | payer OTHER, MEDICAID ==
[2024-06-19 14:57] LABS: INR 2.33; PROTHROMBIN TIME 24.7 SECONDS (12.5-14.5)
[2024-06-19 15:50] LABS: ALBUMIN 3.4 G/DL (3.2-5.2); BILIRUBIN,TOTAL 0.4 MG/DL (0.3-1.2); CALCIUM LEVEL 9.6 MG/DL (8.3-10.6); CREATININE FOR GFR 0.96 MG/DL (0.55-1.30); GLOMERULAR FILTRATION RATE 59.1 (>32); POTASSIUM SERUM 4.2 MMOL/L (3.5-5.1); TOTAL PROTEIN 6.9 G/DL (5.7-8.2)
== END ==
LOC: M PLALAB 14:08
PROVIDERS: ATTEND Nurse Practitioner Adult Health
DX: I10 Essential (primary) hypertension (principal); Z51.81 Encounter for therapeutic drug level monitoring; Z79.01 Long term (current) use of anticoagulants

== ENCOUNTER 2024-10-31 23:04 | Emergency (ER) | payer MEDICAID, MEDICARE, OTHER ==
[~2024-10-31] VITALS: Ht 157.5 cm; Wt 84.1 kg
[2024-10-31] MEDS: traMADol 50 MG TAB PO ONE (23:22)
[2024-11-01] MEDS: diazePAM 10MG/2ML SYRINGE IM ONE (00:33)
[2024-11-01] MEDS: methylPREDNISolone 125MG 2ML VIAL IM ONE (00:34)
[2024-11-01 02:50] VITALS: BP 176/66
[2024-11-01] MEDS: amLODIPine 5 MG TAB PO ONE (02:50)
[2024-11-01] MEDS ORDERED: VALI5TAB PO (03:55)
[2024-11-01] MEDS ORDERED: MEDR4PAK PO (03:55)
[2024-11-01 04:03] VITALS: BP 154/70; TEMP 98; O2SAT 94
== END 2024-11-01 04:15 | disposition home or self-care (01) ==
LOC: M ED 23:04
DX: M54.32 Sciatica, left side (principal); I10 Essential (primary) hypertension; K21.9 Gastro-esophageal reflux disease without esophagitis; J45.909 Unspecified asthma, uncomplicated; E78.5 Hyperlipidemia, unspecified; Z88.1 Allergy status to other antibiotic agents; Z91.040 Latex allergy status; Z79.1 Long term (current) use of non-steroidal anti-inflammatories (NSAID); Z79.51 Long term (current) use of inhaled steroids; Z79.52 Long term (current) use of systemic steroids; Z79.01 Long term (current) use of anticoagulants; Z79.899 Other long term (current) drug therapy
CPT/HCPCS: 72131; 73502; 96372; 99284; J2919; J3360

== ENCOUNTER → 2024-11-07 | Outpatient (REF) | payer MEDICARE, MEDICAID ==
[~2024-11-07] MED LIST changes: +MEDR4PAK PO; +VALI5TAB PO
== END ==
LOC: M SFHCPLAZ 12:50
PROVIDERS: ATTEND Nurse Practitioner Adult Health
DX: R09.89 Other specified symptoms and signs involving the circulatory and respiratory systems (principal)
CPT/HCPCS: 87486; 87581; 87633; 87798; G0463

== ENCOUNTER → 2024-11-22 | Outpatient (CLI) | payer MEDICARE, MEDICAID ==
[2024-11-22 15:00] LABS: INR 3.36; PROTHROMBIN TIME 33.8 SECONDS (12.5-14.5)
== END ==
LOC: M PLALAB 11:59
PROVIDERS: ATTEND Nurse Practitioner Adult Health
DX: Z51.81 Encounter for therapeutic drug level monitoring (principal); Z79.01 Long term (current) use of anticoagulants; I48.91 Unspecified atrial fibrillation
CPT/HCPCS: 36415; 85610; G0463

== ENCOUNTER → 2024-12-25 | Outpatient (CLI) | payer MEDICARE, MEDICAID ==
[2024-12-25 15:14] LABS: INR 2.47; PROTHROMBIN TIME 26.7 SECONDS (12.5-14.5)
[2024-12-25 15:36] LABS: ALBUMIN 3.2 G/DL (3.2-5.2); BILIRUBIN,TOTAL 0.3 MG/DL (0.3-1.2); CREATININE FOR GFR 0.89 MG/DL (0.55-1.30); GLOMERULAR FILTRATION RATE 63.9 (>32); POTASSIUM SERUM 4.3 MMOL/L (3.5-5.1); TOTAL PROTEIN 6.5 G/DL (5.7-8.2)
== END ==
LOC: M PLAIMG 14:11
PROVIDERS: ATTEND Nurse Practitioner Adult Health
DX: I48.91 Unspecified atrial fibrillation (principal)

== ENCOUNTER → 2025-01-15 | Outpatient (CLI) | payer MEDICARE ==
[2025-01-15 15:27] LABS: INR 2.72; PROTHROMBIN TIME 28.8 SECONDS (12.5-14.5)
== END ==
LOC: M PLALAB 13:59
PROVIDERS: ATTEND Nurse Practitioner Adult Health
DX: I48.91 Unspecified atrial fibrillation (principal); Z79.01 Long term (current) use of anticoagulants

== ENCOUNTER 2025-02-20 10:14 | Observation (INO) | payer MEDICARE, MEDICAID ==
[~2025-02-20] VITALS: Ht 157.5 cm; Wt 93.4 kg
[2025-02-20] MEDS: NS 500 ML IV ONE (11:28)
[2025-02-20 11:43] LABS: BASO # 0.1 10^3/uL (0.0-0.2); BASO % 0.8 % (0.0-1.0); EOS # 0.2 10^3/uL (0.0-0.5); EOS % 2.0 % (0.0-3.0); LYMPH # 1.6 10^3/uL (1.5-5.0); LYMPH % 14.4 % (24.0-44.0); MONO # 1.1 10^3/uL (0.0-0.8); MONO % 10.1 % (2.0-8.0); NEUTROPHILS # 8.0 10^3/uL (1.5-8.5); NEUTROPHILS % 72.2 % (36.0-66.0); PLATELET COUNT, AUTOMATED 233 10^3/uL (150-450)
[2025-02-20 12:17] LABS: CALCIUM LEVEL 8.9 MG/DL (8.3-10.6); CARBON DIOXIDE LEVEL 28.0 MMOL/L (20-31); CHLORIDE LEVEL 104.0 MMOL/L (98-107); CK-MB VALUE MASS 2.4 NG/ML (<3.6); CREATININE FOR GFR 1.01 MG/DL (0.55-1.30); GLOMERULAR FILTRATION RATE 54.9 (>32); MAGNESIUM LEVEL 1.9 MG/DL (1.8-2.4); POTASSIUM SERUM 4.8 MMOL/L (3.5-5.1); SODIUM LEVEL 144.0 MMOL/L (136-145)
[2025-02-20 12:19] LABS: FREE T4 1.31 NG/DL (0.89-1.76)
[2025-02-20 12:20] LABS: CPK CREATINE PHOSPHOKINASE 104.0 U/L (34-145); MB/CK RELATIVE INDEX 2.3 (< OR =4)
[2025-02-20 13:06] LABS: CK-MB VALUE MASS 2.2 NG/ML (<3.6)
[2025-02-20 13:20] LABS: CPK CREATINE PHOSPHOKINASE 90.0 U/L (34-145); MB/CK RELATIVE INDEX 2.44 (< OR =4)
[2025-02-20] MEDS ORDERED: BREO1INH3 INH (13:41)
[2025-02-20] MEDS ORDERED: HOME MED LIST COMPLETE! XX SCH (13:45)
[2025-02-20 16:45] VITALS: BP 153/81; TEMP 97.7; O2SAT 94
[2025-02-20] MEDS: SIMVASTATIN 40 MG TAB PO SCH (17:05)
[2025-02-20] MEDS: amLODIPine 5 MG TAB PO SCH (17:05)
[2025-02-20] MEDS: WARFARIN SOD 5MG TAB PO SCH (17:06)
[2025-02-20] MEDS: LORATADINE 10 MG TAB PO SCH (17:12)
[2025-02-20] MEDS: OMEPRAZOLE 20MG CAP PO SCH (17:12)
[2025-02-20] MEDS: MONTELUKAST 10 MG TAB PO SCH (17:12)
[2025-02-20 17:37] LABS: INR 2.25
[2025-02-20 20:04] VITALS: BP 153/83; TEMP 97.3; O2SAT 97
[2025-02-20 21:00] VITALS: BP 153/83; TEMP 97.3; O2SAT 97
[2025-02-20] MEDS: DIVALPROEX 250 MG TAB PO SCH (21:54)
[2025-02-21] MEDS: ACETAMINOPHEN 325 MG TAB PO PRN (03:37)
[2025-02-21 04:12] VITALS: BP 154/81; TEMP 97.3; O2SAT 94
[2025-02-21 05:33] LABS: CALCIUM LEVEL 8.8 MG/DL (8.3-10.6); CARBON DIOXIDE LEVEL 26.0 MMOL/L (20-31); CHLORIDE LEVEL 106.0 MMOL/L (98-107); CREATININE FOR GFR 0.86 MG/DL (0.55-1.30); GLOMERULAR FILTRATION RATE 66.6 (>32); POTASSIUM SERUM 4.0 MMOL/L (3.5-5.1); SODIUM LEVEL 145.0 MMOL/L (136-145)
[2025-02-21] MEDS ORDERED: ALBUTEROL SULFATE 2.5 MG/0.5 ML INH CONCENTRATE NEB SOLN NEB PRN (08:20)
[2025-02-21] MEDS: NYSTATIN 100,000 UNITS/GM TOPICAL PWD 15 GM TOP SCH (11:43)
[2025-02-21] MEDS: amLODIPine 5 MG TAB PO SCH (11:44)
[2025-02-21 12:00] VITALS: BP 152/89; TEMP 97.5; O2SAT 97
[2025-02-21] MEDS: ADVAIR HFA 230/21 MCG INHALER INH SCH (12:41)
[2025-02-21] MEDS ORDERED: PILL CUTTER 1 EACH XX ONE (17:33)
[2025-02-21 21:34] VITALS: BP 151/74; TEMP 97.2; O2SAT 94
[2025-02-22 04:11] VITALS: BP 172/80; TEMP 97.9; O2SAT 97
[2025-02-22 05:04] LABS: BASO # 0.1 10^3/uL (0.0-0.2); BASO % 0.4 % (0.0-1.0); EOS # 0.2 10^3/uL (0.0-0.5); EOS % 1.4 % (0.0-3.0); LYMPH # 1.7 10^3/uL (1.5-5.0); LYMPH % 11.7 % (24.0-44.0); MONO # 1.7 10^3/uL (0.0-0.8); MONO % 11.9 % (2.0-8.0); NEUTROPHILS # 10.5 10^3/uL (1.5-8.5); NEUTROPHILS % 74.1 % (36.0-66.0); PLATELET COUNT, AUTOMATED 212 10^3/uL (150-450)
[2025-02-22 05:49] VITALS: BP_SYST 124; BP_SYST 179; BP_SYST 188; BP_DIAS 86; BP_DIAS 96
[2025-02-22 05:52] LABS: CALCIUM LEVEL 8.7 MG/DL (8.3-10.6); CARBON DIOXIDE LEVEL 24.0 MMOL/L (20-31); CHLORIDE LEVEL 105.0 MMOL/L (98-107); CREATININE FOR GFR 0.84 MG/DL (0.55-1.30); GLOMERULAR FILTRATION RATE 68.5 (>32); POTASSIUM SERUM 4.4 MMOL/L (3.5-5.1); SODIUM LEVEL 141.0 MMOL/L (136-145)
[2025-02-22 06:18] VITALS: BP 167/97
[2025-02-22 07:13] VITALS: BP 168/98
[2025-02-22 12:00] VITALS: BP 146/70; TEMP 97.3; O2SAT 96
[2025-02-22] MEDS ORDERED: MECLIZINE 25 MG TABLET PO PRN (13:30)
[2025-02-22 20:28] VITALS: BP 142/83; TEMP 97.3; O2SAT 96
[2025-02-22] MEDS: amLODIPine 5 MG TAB PO SCH (21:41)
[2025-02-23 03:19] VITALS: BP 141/65; TEMP 97.9; O2SAT 94
[2025-02-23 12:00] VITALS: BP 173/73; TEMP 97.5; O2SAT 98
[2025-02-23 19:45] VITALS: BP 144/75; TEMP 97.5; O2SAT 95
[2025-02-24 03:06] VITALS: BP 176/85; TEMP 97.3; O2SAT 99
[2025-02-24 05:47] VITALS: BP 170/89
[2025-02-24 05:58] LABS: INR 2.3
[2025-02-24 12:00] VITALS: BP 138/63; TEMP 97.7; O2SAT 94
[2025-02-24 20:24] VITALS: BP 150/66; TEMP 97.2; O2SAT 94
[2025-02-25 06:08] VITALS: BP 149/68; TEMP 97.3; O2SAT 96
[2025-02-25 09:07] LABS: BASO # 0.1 10^3/uL (0.0-0.2); BASO % 0.4 % (0.0-1.0); EOS # 0.4 10^3/uL (0.0-0.5); EOS % 2.5 % (0.0-3.0); LYMPH # 1.8 10^3/uL (1.5-5.0); LYMPH % 12.9 % (24.0-44.0); MONO # 1.7 10^3/uL (0.0-0.8); MONO % 11.7 % (2.0-8.0); NEUTROPHILS # 10.2 10^3/uL (1.5-8.5); NEUTROPHILS % 71.9 % (36.0-66.0); PLATELET COUNT, AUTOMATED 266 10^3/uL (150-450)
[2025-02-25 09:34] LABS: CALCIUM LEVEL 9.0 MG/DL (8.3-10.6); CARBON DIOXIDE LEVEL 25.0 MMOL/L (20-31); CHLORIDE LEVEL 104.0 MMOL/L (98-107); CREATININE FOR GFR 0.89 MG/DL (0.55-1.30); GLOMERULAR FILTRATION RATE 63.9 (>32); POTASSIUM SERUM 4.5 MMOL/L (3.5-5.1); SODIUM LEVEL 141.0 MMOL/L (136-145)
[2025-02-25 12:00] VITALS: BP 143/64; TEMP 97; O2SAT 97
[2025-02-25] MEDS: CARBAMIDE PEROXIDE 6.5% OTIC SOLN 15 ML AD SCH (13:43)
[2025-02-25 19:58] VITALS: BP 147/67; TEMP 97.3; O2SAT 97
[2025-02-26 03:28] VITALS: BP 131/96; TEMP 97.5; O2SAT 97
[2025-02-26] MEDS ORDERED: LOTR52CA PO (08:28)
[2025-02-26] MEDS ORDERED: CARBOT AU (08:28)
[2025-02-26] MEDS ORDERED: MECL-86 PO (08:28)
[2025-02-26 08:46] LABS: BASO # 0.1 10^3/uL (0.0-0.2); BASO % 0.4 % (0.0-1.0); EOS # 0.3 10^3/uL (0.0-0.5); EOS % 2.2 % (0.0-3.0); LYMPH # 1.5 10^3/uL (1.5-5.0); LYMPH % 11.4 % (24.0-44.0); MONO # 1.4 10^3/uL (0.0-0.8); MONO % 10.3 % (2.0-8.0); NEUTROPHILS # 10.0 10^3/uL (1.5-8.5); NEUTROPHILS % 74.9 % (36.0-66.0); PLATELET COUNT, AUTOMATED 282 10^3/uL (150-450)
[2025-02-26 09:16] VITALS: BP 131/96
[2025-02-26 09:20] LABS: CALCIUM LEVEL 8.8 MG/DL (8.3-10.6); CARBON DIOXIDE LEVEL 26.0 MMOL/L (20-31); CHLORIDE LEVEL 104.0 MMOL/L (98-107); CREATININE FOR GFR 0.81 MG/DL (0.55-1.30); GLOMERULAR FILTRATION RATE 71.5 (>32); POTASSIUM SERUM 5.1 MMOL/L (3.5-5.1); SODIUM LEVEL 142.0 MMOL/L (136-145)
== END 2025-02-26 11:28 | disposition home health service (06) ==
LOC: M ED 10:14 → EDBD 10:14 → M ED INP 10:15 → M MSPAV 16:52
PROVIDERS: ADMIT Internal Medicine Nephrology; ATTEND Internal Medicine Nephrology
DX: I16.0 Hypertensive urgency (principal); R42 Dizziness and giddiness; H61.21 Impacted cerumen, right ear; D72.829 Elevated white blood cell count, unspecified; I48.91 Unspecified atrial fibrillation; Z79.01 Long term (current) use of anticoagulants; Z95.0 Presence of cardiac pacemaker; I34.2 Nonrheumatic mitral (valve) stenosis; I34.0 Nonrheumatic mitral (valve) insufficiency; I27.20 Pulmonary hypertension, unspecified; I50.812 Chronic right heart failure; E78.00 Pure hypercholesterolemia, unspecified; M85.80 Other specified disorders of bone density and structure, unspecified site; E55.9 Vitamin D deficiency, unspecified; I36.1 Nonrheumatic tricuspid (valve) insufficiency; M25.511 Pain in right shoulder; J45.909 Unspecified asthma, uncomplicated; J30.9 Allergic rhinitis, unspecified; F41.9 Anxiety disorder, unspecified; G43.909 Migraine, unspecified, not intractable, without status migrainosus; K21.9 Gastro-esophageal reflux disease without esophagitis; E66.9 Obesity, unspecified; Z79.899 Other long term (current) drug therapy
CPT/HCPCS: 36415; 70450; 80048; 82550; 82553; 83735; 84439; 84443; 84484; 85025; 85610; 93005; 93041; 94640; 94664; 94760; 96374; 97112; 97161; 97165; 97530; 99285; G0378

== ENCOUNTER → 2025-04-09 | Outpatient (CLI) | payer MEDICARE, MEDICAID ==
[~2025-04-09] MED LIST changes: +BREO1INH3 INH; +CARBOT AU; +MECL-86 PO
[2025-04-09 18:27] LABS: PLATELET COUNT, AUTOMATED 320 10^3/uL (150-450)
== END ==
LOC: M WUC 13:05
PROVIDERS: ATTEND Nurse Practitioner Family
DX: M25.532 Pain in left wrist (principal); M25.432 Effusion, left wrist

== ENCOUNTER → 2025-05-08 | Outpatient (CLI) | payer MEDICARE, MEDICAID ==
[~2025-05-08] MED LIST changes: +CARB15DR25 AU; -CARBOT AU
[2025-05-08 14:24] LABS: CHOLESTEROL LEVEL 121.0 MG/DL (<200); CHOLESTEROL RISK RATIO 2.6 (<5); LDL CHOLESTEROL 48.2 MG/DL (<100); NON-HDL-C 74.6 MG/DL; TRIGLYCERIDES LEVEL 132.0 MG/DL (<150)
== END ==
LOC: M PLALAB 09:33
PROVIDERS: ATTEND Nurse Practitioner Family
DX: E78.5 Hyperlipidemia, unspecified (principal)

== ENCOUNTER → 2025-05-14 | Outpatient (CLI) | payer MEDICARE, MEDICAID ==
[2025-05-14 15:17] LABS: INR 2.21
== END ==
LOC: M PLALAB 12:30
PROVIDERS: ATTEND Nurse Practitioner Adult Health
DX: I48.91 Unspecified atrial fibrillation (principal); Z79.01 Long term (current) use of anticoagulants

== ENCOUNTER → 2025-05-29 | Outpatient (CLI) | payer MEDICARE, MEDICAID | LOC: M WUC 13:17 | PROVIDERS: ATTEND Physician Assistant | DX: M25.552 Pain in left hip (principal) ==

== ENCOUNTER → 2025-06-13 | Outpatient (CLI) | payer MEDICARE, MEDICAID | LOC: M PLALAB 10:22 → M PLAIMG 10:22 | PROVIDERS: ATTEND Nurse Practitioner Adult Health | DX: M25.552 Pain in left hip (principal) ==

== ENCOUNTER → 2025-07-30 | Outpatient (CLI) | payer MEDICARE, MEDICAID ==
[~2025-07-30] MED LIST changes: +AMLO-751 PO; +AMLO1TAB24 PO; +ASPE4PAD TOP; +BENA40TA84 PO; +BISO10TA13 PO; +CEFP200T PO; +DOXY100C3 PO; +FURO40TA2 PO; +GABA-1172 PO; +NYST1POW3 TOP; +OSEL30CA PO; +WARF-18 PO
[2025-07-30 15:15] LABS: BASO # 0.1 10^3/uL (0.0-0.2); BASO % 0.5 % (0.0-1.0); EOS # 0.1 10^3/uL (0.0-0.5); EOS % 0.8 % (0.0-3.0); LYMPH # 2.0 10^3/uL (1.5-5.0); LYMPH % 13.3 % (24.0-44.0); MONO # 1.3 10^3/uL (0.0-0.8); MONO % 9.0 % (2.0-8.0); NEUTROPHILS # 10.9 10^3/uL (1.5-8.5); NEUTROPHILS % 74.0 % (36.0-66.0); PLATELET COUNT, AUTOMATED 252 10^3/uL (150-450)
[2025-07-30 15:52] LABS: C REACTIVE PROTEIN QUANTITATIV 3.28 MG/DL (<1.0)
== END ==
LOC: M PLALAB 13:56
PROVIDERS: ATTEND Student in an Organized Health Care Education/Training Program
DX: J45.909 Unspecified asthma, uncomplicated (principal)